=== PATIENT | male | born 1940 | race Caucasian/White ===

== ENCOUNTER 2017-08-05 04:03 | Observation (INO) ==
[2017-08-05] MEDS ORDERED: *HR* Dextrose 50 % in Water (Syg) 50 ML SYRINGE ONE (04:12)
[2017-08-05] MEDS ORDERED: *HR* Dextrose 50 % in Water (Syg) 50 ML SYRINGE IVP ONE (04:13)
--- NOTE | 2017-08-05 04:30 | Emergency Department Note ---
Disposition Clinical Impression: Hypoglycemia Disposition: Admitted As Inpatient Condition: Good Instructions: Diabetic Hypoglycemia (ED) Referrals: NONE,PCP [Primary Care Provider] - Forms: ED Satisfaction Letter General Adult HPI - General Chief complaint: ED Altered Mental Status Stated complaint: hypoglycemia Time Seen by Provider: 08/05/17 04:08 Source: patient Mode of arrival: EMS Limitations: altered mental status Nursing Notes Reviewed: Yes Vital Signs Reviewed: Yes - History of Present Illness HPI Narrative: 76-year-old male with an unknown medical history presents to the ER via EMS due to reports of shortness of breath. EMS states that they were called to the house by family. Upon arrival he was noted to have sonorous respirations. Report was an initial Accu-Chek of 84. He was placed on nasal cannula and brought in for evaluation. Patient is unable to provide any details of his own history. He was noted to be normotensive and in A. fib upon arrival. We did repeat an Accu-Chek here which showed a blood glucose level of 30. The patient was given an amp of D50 with a marked improvement in his mental status afterwards. He states that he is a diabetic but he does not know what medications he takes. He is currently confused as to why he is in a hospital. He voices no complaints at this time. Pt Subjective Complaint: Dyspnea Onset (ago): unknown Radiation: non-radiation Pain Scale: 0 Consistency: now resolved Improves with: nothing Worsens with: nothing Associated symptoms: Denies: chest pain, cough Treatments Prior to Arrival: none - Related Data Allergies Allergy/AdvReac Type Severity Reaction Status Date / Time No Known Allergies Allergy Verified 08/05/17 04:25 All systems ED: reviewed and negative except as stated. Constitutional: Denies: fever Cardiovascular: Denies: chest pain Respiratory: Denies: cough, dyspnea Gastrointestinal: Denies: abdominal pain, nausea, vomiting Past Medical History - Past Medical History Attestation: Yes The following information was validated with the patient. Source: old records reviewed Medical history: Reports: atrial fibrillation, CHF, diabetes - Social History Smoking Status: Former smoker Smokeless Tobacco Status: No Alcohol use: Reports: none Drug use: Reports: none Physical Exam - General Limitations: altered mental status General appearance: alert, obtunded - Head Head exam: atraumatic, normocephalic, normal inspection - Eye Eye exam: Present: normal appearance, EOMI - ENT ENT exam: normal exam - Neck Neck exam: Present: normal inspection, full ROM - Chest Chest inspection: Present: normal inspection, symmetric chest wall rise - Respiratory Respiratory exam: Present: normal lung sounds bilaterally - Cardiovascular Cardiovascular exam: Present: regular rate, irregular rhythm, normal heart sounds - Abdominal Exam Abdominal exam: Present: soft. Absent: distention, rigidity - Extremities Exam Extremities exam: Present: normal inspection, full ROM - Expanded Upper Extremity Exam Shoulder exam: Present: normal inspection, full ROM Arm exam: Present: normal inspection, full ROM Elbow exam: Present: normal inspection, full ROM Forearm/Wrist exam: Present: normal inspection, full ROM Hand exam: Present: normal inspection, full ROM Vascular exam: Normal: radial pulse - Expanded Lower Extremity Exam Hip/Pelvis exam: Present: normal inspection, full ROM Upper leg exam: Present: normal inspection, full ROM Knee exam: Present: normal inspection, full ROM Lower leg exam: Present: normal inspection, full ROM Ankle exam: Present: normal inspection, full ROM, swelling (2+ pitting edema lower extremities bilaterally) Foot/toe exam: Present: normal inspection, full ROM Neurovascular/Tendon exam: Absent: motor deficit, sensory deficit - Neurological Exam Neurological exam: Present: other (Unable to assess initially due to patient compliance. He moves all extremities equally.) - Skin Skin exam: Present: warm, dry, intact, normal color Course Course Narrative: Patient seen and examined. Noted to have a blood glucose level here of 30. Given an amp of D50 with improvement in his mental status. There is no family currently to confirm that he is at his baseline. He is unsure why he is here. He has no complaints. EKG demonstrates no acute findings. We will opt him here and await family. - Reevaluation(s) Reevaluation #1: Patient's family is currently at bedside and reported he is back to his baseline. Patient is unsure whether or not he took his medications as prescribed this evening. I injected the family for him to eat regular meals and to check his blood sugars before giving his diabetic medications. We repeated his glucose here was over 100. He does request his home pain medication prior to discharge. Reevaluation #2: We checked his glucose again prior to discharge and he was noted to be in the 50s. We will check his renal function and attempt to get family to see what medications he is on. Family brought in his medications showing that he does take glipizide. Reevaluation #3: I discussed the recommendations of poison control with the patient and family. They are in agreement with being admitted for observation. - Consultations Consultation #1: I spoke with poison control concerning this patient. He is a questionable glipizide overdose. I discussed his history labs and images today. They do recommend the 24 hour observation period for every 1-2 hour Accu-Cheks. Vital Signs Temperature 97.5 F L 08/05/17 04:04 Pulse Rate 87 08/05/17 04:04 Respiratory Rate 20 08/05/17 04:04 Blood Pressure 104/88 08/05/17 04:04 O2 Sat by Pulse Oximetry 97 08/05/17 04:04 Temperature 97.5 F L 08/05/17 04:04 Pulse Rate 75 08/05/17 07:03 Respiratory Rate 18 08/05/17 07:03 Blood Pressure 107/67 08/05/17 07:03 O2 Sat by Pulse Oximetry 96 08/05/17 05:51 Oxygen Delivery Oxygen Delivery Room Air Medical Decision Making - MDM Narrative Medical decision making narrative: 76-year-old male presents to the ER due to altered mental status and will be breathing. He was noted to be hyperglycemic here at 30 upon presentation. He was given an amp of D50 with marked improvement of his neurologic status. His EKG demonstrates atrial fibrillation which is chronic for him. He was noted to be hypoglycemic again in the 60s after D50. We gave him some juice with sugar still in the 60s. Case was discussed with poison control who recommended admission for 24-hour observation. - Lab Data Lab results reviewed: Yes I reviewed the patient's lab results. Result diagrams: 08/05/17 01:45 Lab Results 08/05/17 08/05/17 Range/Units 01:45 04:30 Sodium 144 (136-145) mEq/L Potassium 4.2 (3.5-4.5) mEq/L Chloride 107 (98-109) mEq/L Carbon Dioxide 25 (19-29) mEq/L BUN 32 H (8-26) mg/dL Creatinine 1.25 (0.72-1.25) mg/dL Est GFR ( Amer) > 60 (> 60) Est GFR (Non-Af Amer) 56 L (> 60) BUN/Creatinine Ratio 26 (6-26) Glucose 24 L* (70-99) mg/dL POC Glucose 119 H (58-89) Calculated Osmolality 301 H (280-300) Calcium 9.8 (8.6-10.8) mg/dL - EKG Data EKG #1 EKG attestation: Yes I reviewed and interpreted this EKG. EKG results narrative: EKG demonstrates atrial fibrillation with a rate of 85 bpm. Normal axis. Normal intervals. Normal R-wave progression. Nonspecific ST-T wave changes in the inferior and lateral leads. No gross ST elevations or depressions. No acute ischemic findings. Gonzales - Gonzales Situation: Demographics, MOA Background: Presenting Complaint, Relevant PMH, Meds, & Allergies Assessment: Vital Signs, Course and respsone to treatment, Exam Concerns, Patient/Family Expectation, Pertinant Lab Results, Outstanding Labs Recommendation: Barrier(s) to disposition, Recommendation based on pending studies, treatments, or consults Gonzales Report Given to: Dr. David Rolon Repor Time: 07:14 Attestation Statement - Attestation Attestation: I examined this patient and my medical decision-making was reviewed with the Resident Physician. I agree with the documented findings, disposition and treatment plan as described except to the extent set forth below. Patient to ED altered mental status. Family called 911 for difficulty breathing. On arrival here he is rolling in the bed. Diaphoretic. Bedside glucose was 30. Plan. The patient's mental status is improved to baseline after D50. His modified on his blood sugar dropped again. We will check renal function. Still waiting medication list from the family.
[2017-08-05] MEDS ORDERED: *HR* OxyCODONE/APAP 5/325 TABLET PO ONE (05:02)
[2017-08-05 05:51] LABS: BUN/Creatinine Ratio 26 (6-26); Blood Urea Nitrogen 32 mg/dL (8-26); Calcium 9.8 mg/dL (8.6-10.8); Carbon Dioxide 25 mEq/L (19-29); Chloride 107 mEq/L (98-109); Osmolality,Calculated 301 (280-300); Potassium 4.2 mEq/L (3.5-4.5); Sodium 144 mEq/L (136-145); eGFR For African Americans > 60 (> 60); eGFR For Non-African Americans 56 (> 60)
[2017-08-05 05:52] LABS: Glucose 24 mg/dL (70-99)
[2017-08-05 07:15] LABS: Basophils # 0.1 K/mcL (0.0-0.2); Basophils % 0.6 %; Eosinophils # 0.1 K/mcL (0.0-0.6); Eosinophils % 1.3 %; Hematocrit 35.5 % (37.5-50.1); Hemoglobin 11.1 g/dL (12.9-16.9); Immature Granulocytes % 0.3 % (0-4); Lymphocytes # 1.1 K/mcL (0.6-4.6); Lymphocytes % 14.7 %; Mean Corpuscular HGB Conc 31.3 g/dL (31.6-35.5); Mean Corpuscular Hemoglobin 29.1 pg (28.0-33.3); Mean Corpuscular Volume 92.9 fL (83.0-100.0); Mean Platelet Volume 12.4 fL (9.4-12.4); Monocytes # 0.7 K/mcL (0.0-1.3); Monocytes % 8.4 %; Neutrophils # 5.8 K/mcL (1.6-8.9); Platelet Count 124 K/mcL (140-400); Red Blood Count 3.82 M/mcL (4.19-5.50); Red Cell Distribution Width 15.8 % (11.5-14.5); Segmented Neutrophils % 74.7 %
[2017-08-05] MEDS ORDERED: Naloxone 0.4 MG/ML INJ IVP PRN (07:41)
[2017-08-05] MEDS ORDERED: Ipratropium/Albuterol Neb 3 ML IH PRN (07:46)
--- NOTE | 2017-08-05 07:54 | Internal Med History&Physical ---
Date of Encounter: 08/05/17 Time of Encounter: 07:49 Assessment and Plan (1) Hypoglycemia Current visit: Yes Status: Acute 2/2 to sulfonylurea and insulin. Discussed for him to request his family to bring medication list as his DM meds needs adjustment to prevent further hypoglycemia. Hold all meds for now. Check A1c. Place on D5 fluid for now to avoid recurrent hypoglycemia. Start diet. Close monitoring. Empiric Low dose ISS for now (2) Afib Current visit: Yes Status: Acute On eliquis, metoprolol BID - dose unknown but will start low dose while inpatient until further confirmation from family can be obtained Qualifiers: Atrial fibrillation type: chronic Qualified Code(s): I48.2 - Chronic atrial fibrillation (3) COPD (chronic obstructive pulmonary disease) Current visit: Yes Status: Acute baseline. uses CPAP qHS prn. Prn albuterol Qualifiers: Qualified Code(s): J44.9 - Chronic obstructive pulmonary disease, unspecified Internal Medicine - H&P: HPI Chief complaint: AMS Admitted From: Home History of present illness: Mr. Jones is a 76 year old male with hx of CABG, DMII, AFib, COPD who presents with acute AMS - found to be hypoglycemic. He lives at home with and son. Uses a cane baseline. At 3 AM, his family noted his breathing/acting funny. Squad was called found low CBG in 80s, in the ED, CBG came down to 30-20, responded to 1 amp of D50 but was refractory with dropping glucose after. His AMS resolved with glucose and as long his CBG is keep up - family concurred. [facility]. He does not have a medication list but mentions of the following - lantus 12 U qHS, metformin 1 pill BID, glyburide 2 pills BID, eliquis, potassium 1 pill qother day, lasix 40mg QD, lisinopril BID ( he is unsure of the dosing of many of his medications), metoprolol BID. Past Med Surg Social Fam HX - Past Medical History Medical history: atrial fibrillation, CHF, diabetes - Past Surgical History Surgical History: non-contributory (Has hx of CABG, appendectomy, tonsillectomy) - Social History Smoking Status: Former smoker Smokeless Tobacco Status: No Alcohol use: none Drug use: none Internal Medicine - H&P: Meds 3 Allergy/AdvReac Type Severity Reaction Status Date / Time No Known Allergies Allergy Verified 08/05/17 04:25 All Systems PM: A 10-system review of systems was performed and is negative for pertinent findings except as documented above in the HPI. Review of systems: ROS 14 point review of systems reviewed as best as possible given presentation. Pertinent positive or negative as per HPI or otherwise reviewed as negative - Constitutional Vitals: Temp Pulse Resp BP Pulse Ox 97.5 F L 78 16 108/81 95 08/05/17 04:04 08/05/17 07:21 08/05/17 07:21 08/05/17 07:21 08/05/17 07:24 Exam: General - AAO x 3 Psych - Appropriate affect/speech. No agitation Eyes - MARTHA. Eye lids intact. No scleral icterus Neuro - No gross peripheral or central neuro deficits with intact CN 2-12 exam Heart - Sinus. RRR. S1 and S2 present. No added HS/murmurs appreciated. No elevated JVD appreciated. Lung - Adequate air entry b/l, No crackles/wheezes appreciated GI - Soft, non-tender. No hepatosplenomegaly/ascites. BS+ - No CVA/suprapubic tenderness or palpable bladder distension Skin - Intact. No rash/petechiae/ecchymosis. Warm extremities. +1 b/l LE edema MSK - Joints with normal ROM. No joint swellings Internal Med - H&P Results - Labs CBC & Chem 7: 08/05/17 01:48 08/05/17 01:45
[2017-08-05] MEDS: D5% in 0.45% NACL 1,000 ML IVC SCH ×2 (07:59→16:42)
[2017-08-05] MEDS ORDERED: Dextrose Gel 15 GM PO PRN ×2 (08:00)
[2017-08-05] MEDS ORDERED: D5% in Water 1,000 ML IVC PRN (08:00)
[2017-08-05] MEDS ORDERED: *HR* Dextrose 50 % in Water (Syg) 50 ML SYRINGE IVP PRN (08:00)
[2017-08-05] MEDS: Furosemide 40 MG TABLET PO SCH (10:04)
[2017-08-05] MEDS: APIXABAN 5 MG TABLET PO SCH ×2 (10:04→21:04)
[2017-08-05] MEDS: *HR* OxyCODONE/APAP 5/325 TABLET PO PRN ×4 (11:01→21:05)
[2017-08-05] MEDS: Insulin LISPRO 300 UNITS/3 ML VIAL SQ SCH ×2 (12:21→16:41)
[2017-08-05] MEDS ORDERED: Insulin LISPRO 300 UNITS/3 ML VIAL SQ SCH (21:00)
[2017-08-06] MEDS: D5% in 0.45% NACL 1,000 ML IVC SCH (01:05)
[2017-08-06] MEDS: *HR* OxyCODONE/APAP 5/325 TABLET PO PRN ×2 (03:42→14:09)
[2017-08-06 04:10] LABS: Basophils % 0.8 %; Immature Granulocytes % 0.2 % (0-4); Red Cell Distribution Width 15.7 % (11.5-14.5)
[2017-08-06 04:12] LABS: Eosinophils # 0.1 K/mcL (0.0-0.6); Eosinophils % 2.6 %; Hematocrit 31.1 % (37.5-50.1); Hemoglobin 9.6 g/dL (12.9-16.9); Immature Platelets 6.9 % (1.1-6.1); Lymphocytes # 1.4 K/mcL (0.6-4.6); Lymphocytes % 26.6 %; Mean Corpuscular HGB Conc 30.9 g/dL (31.6-35.5); Mean Corpuscular Hemoglobin 28.6 pg (28.0-33.3); Mean Corpuscular Volume 92.6 fL (83.0-100.0); Mean Platelet Volume 11.9 fL (9.4-12.4); Monocytes # 0.5 K/mcL (0.0-1.3); Monocytes % 10.5 %; Red Blood Count 3.36 M/mcL (4.19-5.50); Segmented Neutrophils % 59.3 %
[2017-08-06 04:25] LABS: Potassium 4.7 mEq/L (3.5-4.5)
[2017-08-06 04:39] LABS: Platelet Count 99 K/mcL (140-400)
[2017-08-06] MEDS: APIXABAN 5 MG TABLET PO SCH (08:15)
[2017-08-06] MEDS: Insulin LISPRO 300 UNITS/3 ML VIAL SQ SCH ×2 (08:15→12:17)
[2017-08-06] MEDS: Furosemide 40 MG TABLET PO SCH (08:16)
[2017-08-06 12:03] VITALS: BP 117/80
[2017-08-06 13:39] LABS: Hematocrit 32.8 % (37.5-50.1); Hemoglobin 10.5 g/dL (12.9-16.9)
--- NOTE | 2017-08-06 13:45 | Electrocardiograph Report ---
[place] [id number] Test Date: 2017-08-05 Pat Name: Hadley Jones Department: 103 Room: 2NE18 Gender: M Eeg Technician: MARTHA : 1940 Requested By: Sebastien Jasso Order Number: [id number] Reading MD: Gm Richard Measurements Intervals [place] Rate: 85 P: KS: 0 QRS: 91 QRSD: 124 T: 23 QT: 386 QTc: 428 Interpretive Statements ATRIAL FIBRILLATION BORDERLINE RIGHT AXIS DEVIATION [QRS AXIS > 90] MODERATE INTRAVENTRICULAR CONDUCTION DELAY [110+ ms QRS DURATION] ABNORMAL RHYTHM ECG INTERPRETATION BASED ON A DEFAULT AGE OF 40 YEARS Electronically Signed On 08-06-2017 13:43:40 EDT by Gm Richard
--- NOTE | 2017-08-06 14:28 | Discharge Summary ---
<Rajeev Brand - Last Filed: 08/06/17 14:25> Date of Encounter: 08/06/17 Time of Encounter: 09:00 - Discharge Diagnosis (1) Hypoglycemia Priority: Primary () Status: Resolved Comments: Hypoglycemia secondary to poor oral intake and polypharmacy Hemoglobin A1c 5, blood glucose has returned to 144 The patient is taking several oral hypoglycemic agents at home He states that he has lost over 100 pounds in the past few years intentionally Lately he thinks that his appetite has been suppressed, and he has not been eating as much as she stopped taking his medication He will require decreased medication in order to avoid hypoglycemic episodes in the future (2) Afib Priority: Secondary Status: Chronic Qualifiers: Atrial fibrillation type: chronic Qualified Code(s): I48.2 - Chronic atrial fibrillation (3) COPD (chronic obstructive pulmonary disease) Priority: Secondary Status: Chronic Qualifiers: COPD type: chronic bronchitis Chronic bronchitis type: unspecified Qualified Code(s): J42 - Unspecified chronic bronchitis - Discharge Medications Home Medications: Apixaban [Eliquis] 5 mg PO BID 08/05/17 [History] Aspirin [Lo-Dose Aspirin EC] 81 mg PO DAILY 08/05/17 [History] Atorvastatin [Lipitor] 40 mg PO HS 08/05/17 [History] Cholecalciferol (Vitamin D3) [Vitamin D3] 800 unit PO DAILY 08/05/17 [History] Cyanocobalamin (B-12) [Vitamin B12] 1,000 mcg PO DAILY 08/05/17 [History] Furosemide [Lasix] 40 mg PO DAILY 08/05/17 [History] Gabapentin [Neurontin] 1,200 mg PO TID 08/05/17 [History] HYDROcodone/Acet 5/325 mg [[place] 5-325 mg] 1 tab PO TID PRN 08/05/17 [History] Ipratropium/Albuterol Sulfate [Combivent Respimat Inhal [place]] 1 puff IH TID PRN 08/05/17 [History] Lisinopril [Zestril] 15 mg PO DAILY 08/05/17 [History] Meloxicam [Mobic] 15 mg PO DAILY 08/05/17 [History] Metformin HCl [Glucophage] 1,000 mg PO BID 08/05/17 [History] Metoprolol [Lopressor] 25 mg PO BID 08/05/17 [History] Morphine Sulfate [Arymo ER] 15 mg PO QID 08/05/17 [History] Omeprazole [PriLOSEC] 40 mg PO DAILY 08/05/17 [History] Potassium Chloride [Klor-Con 10] 10 meq PO DAILY 08/05/17 [History] Sennosides/Docusate Sodium [Senna-Docusate Sodium Tablet] 1 tab PO BID 08/05/17 [History] Allergies/Adverse Reactions: 3 Allergy/AdvReac Type Severity Reaction Status Date / Time No Known Allergies Allergy Verified 08/05/17 04:25 Date of admission: 08/05/17 07:22 Primary care physician: PCP NONE Discharging clinician: Rajeev Brand Anticipated date of discharge: 08/06/17 - Patient Status Disposition: Home, Self-Care Condition: Good Functional capacity at discharge: uses cane/walker Overall status at discharge: patient is back to baseline - Ambulatory Orders Ambulatory Orders: Basic Metabolic Panel [CHEM] Time Frame: 1 Week, Location: Any - Discharge Instructions Follow Up With: NONE,PCP [Primary Care Provider] - Additional Instructions: Patient follow-up with primary care within 1-2 weeks. Visit lab for BMP within 1 week to check renal function Discontinue use of insulin and glipizide Continue metformin Monitor blood glucose at home, drink orange juice if blood glucose decreases below 60 Return to ER for blood glucose below 60 with altered mental status - Diet and Activity Activity: ambulate only with your walker, increase activity as tolerated Diet: diabetic diet Hospital course: Mr. Jones is a 76 year old male with history of CABG: Diabetes aguilar type II, A. fib, COPD presented to the ED with acute altered mental status found to be hypoglycemic. The patient lives at home with his son, at 3 AM his family noticed that his breathing and acting funny. On arrival to the ED the patient was found to have blood glucose between 20 and 30. Careful analysis of medication was demonstrated Lantus 12 units daily at bedtime, metformin 1 pill twice a day, glyburide 2 pills twice a day. The patient admits that he has been eating less than he had previously, and that he has lost a significant amount of weight in the past couple of years. The patient's hypoglycemia has resolved at this time. Serum creatinine has increased from 1.45 to 1.2. This does not constitute an DREW, however I will recommend laboratory order for the patient have a BMP within 1 week of discharge to follow up with primary care. The patient will be discharged metformin alone, discontinuing other hypoglycemic agents for reevaluation by primary care. - Time Spent with Patient Total time spent providing and/or coordinating discharge services: - Constitutional Vitals: Temp Pulse Resp BP Pulse Ox 98.9 F 84 18 117/80 95 08/06/17 11:36 08/06/17 11:36 08/06/17 11:36 08/06/17 11:36 08/06/17 11:36 - Head Head exam: Present: atraumatic, normocephalic - Eye Eye exam: Present: PERRL, conjuntiva pink, sclera anicteric Pupils: Present: PERRL - Neck Neck exam general surgery: Present: supple, trachea midline. Absent: lymphadenopathy - Respiratory Respiratory exam: Present: CTAB. Absent: accessory muscle use, rales, rhonchi, wheezes - Cardiovascular Cardiovascular exam: Present: RRR, +S1, +S2. Absent: diastolic murmur, gallop, rubs, systolic murmur - GI/Abdominal GI/Abdominal exam: Present: normal bowel sounds, soft, no peritoneal signs. Absent: distended, tenderness - Extremities Exam Extremities exam: Present: warm, radial pulses palpable and symmetrical. Absent : calf tenderness, cyanotic, pedal edema - Neurological Exam Neurological exam: Present: CN II-XII intact, oriented X3, no focal deficits. Absent: pronater drift, facial droop, speech deficit - Skin Skin exam: Present: dry, intact <Mario Shultz - Last Filed: 08/06/17 15:18> Date of Encounter: 08/06/17 - Discharge Diagnosis (1) Diabetes Priority: Primary Status: Chronic Qualifiers: Diabetes mellitus type: type 2 Diabetes mellitus complication status: with hypoglycemia Diabetes mellitus complication detail: without coma Diabetes mellitus long term care pharmacist insulin use: without long term care pharmacist use Qualified Code(s): E11.649 - Type 2 diabetes mellitus with hypoglycemia without coma (2) COPD (chronic obstructive pulmonary disease) Status: Chronic Qualifiers: COPD type: chronic bronchitis Chronic bronchitis type: simple Qualified Code(s): J41.0 - Simple chronic bronchitis (3) Afib Status: Chronic Qualifiers: Atrial fibrillation type: chronic Qualified Code(s): I48.2 - Chronic atrial fibrillation (4) Diabetic neuropathy Priority: Secondary Status: Chronic Qualifiers: Diabetes mellitus type: type 2 Diabetes mellitus complication detail: diabetic polyneuropathy Qualified Code(s): E11.42 - Type 2 diabetes mellitus with diabetic polyneuropathy Date of admission: 08/05/17 07:22 Primary care physician: PCP NONE Hospital course: Mr. Jones is a 76 year old male - Time Spent with Patient Total time spent providing and/or coordinating discharge services: - Constitutional Vitals: Temp Pulse Resp BP Pulse Ox 98.9 F 84 18 117/80 95 08/06/17 11:36 08/06/17 11:36 08/06/17 11:36 08/06/17 11:36 08/06/17 11:36 - Attending Attestation I examined this patient and my medical decision-making was reviewed with the Resident Physician on 08/06/17. I agree with the documented findings, disposition and treatment plan as described except to the extent set forth below. Mr Jones has been in observation due to hypoglycemia. His meds have been held and he is at baseline. Initially his hemoglobin decreased (was fluid positive 2600ml) but a recheck had increased nearly to admission number. He is afebrile and vitals stable. At this time he is ready for discharge home with outpatient follow up. His insulin and glyburide have been stopped. His metformin has been continued. HgbA1C is 5. Exam Alert. Comfortable Mucus membranes dry Heart reg No wheeze Abd soft Plan D/C home today [facility]
[2017-08-06] MEDS ORDERED: FLUARIX QUAD 2017-18 36MOS UP/PF 0.5 ML SYRINGE IM ONE (15:30)
== END 2017-08-06 16:12 | disposition home or self-care (01) ==
LOC: 2NENU 04:03 → EMEROO 04:03 → 2NENU 08:05
PROVIDERS: ADMIT Internal Medicine Hematology & Oncology; ATTEND Internal Medicine

== ENCOUNTER 2017-12-20 14:06 | Inpatient (IN) ==
[2017-12-20 14:49] LABS: Bilirubin,Urine Negative (Negative); Blood,Urine Negative (Negative); Clarity,Urine Clear (Clear); Color,Urine Yellow (Yellow); Glucose,Urine (UA) Normal (Normal); Ketones,Urine Negative (Negative); Leukocyte Esterase,Urine Negative (Negative); Nitrite,Urine Negative (Negative); Protein,Urine Negative (Neg-Trace); Specific Gravity,Urine 1.015 (1.010-1.025); Urobilinogen,Urine Normal (Normal)
[2017-12-20] MEDS ORDERED: Ondansetron 4 MG/2 ML VIAL IVP ONE (14:57)
--- NOTE | 2017-12-20 15:14 | Emergency Department Note ---
Disposition Clinical Impression: Fluid retention, Nausea Cirrhosis of liver Qualifiers: Hepatic cirrhosis type: other cirrhosis Qualified Code(s): K74.69 - Other cirrhosis of liver CHF (congestive heart failure) Qualifiers: Heart failure type: unspecified Heart failure chronicity: unspecified Qualified Code(s): I50.9 - Heart failure, unspecified Disposition: Admitted As Inpatient Condition: Good General Adult HPI - General Chief complaint: ED Nausea/Vomiting/Diarrhea Stated complaint: vomiting Time Seen by Provider: 12/20/17 14:23 Source: patient Limitations: no limitations Nursing Notes Reviewed: Yes Vital Signs Reviewed: Yes - History of Present Illness HPI Narrative: Patient presents for evaluation of vomiting and abdominal pain. Patient states symptoms 2 weeks. Intermittent in nature. Seems to go away but then come back. Not related to specific timing. Patient's abdominal discomfort is lower just below his belly button. The patient does not have any rebound tenderness or guarding. Patient has a history of gallstones but no right upper quadrant pain. Patient has not had chest pain or shortness of breath. Patient has had significant weight gain. The patient's approximately one month ago. Pain Scale: 4 - Related Data Home Medications Medication Instructions Recorded Confirmed Apixaban [Eliquis] 5 mg PO BID 08/05/17 12/20/17 Aspirin [Lo-Dose Aspirin EC] 81 mg PO DAILY 08/05/17 12/20/17 Atorvastatin [Lipitor] 40 mg PO HS 08/05/17 12/20/17 Cholecalciferol (Vitamin D3) 800 unit PO DAILY 08/05/17 12/20/17 [Vitamin D3] Cyanocobalamin (B-12) [Vitamin B12] 1,000 mcg PO DAILY 08/05/17 12/20/17 Gabapentin [Neurontin] 1,200 mg PO TID 08/05/17 12/20/17 HYDROcodone/Acet 5/325 mg [[place] 1 tab PO TID PRN 08/05/17 12/20/17 5-325 mg] Ipratropium/Albuterol Sulfate 1 puff IH TID PRN 08/05/17 12/20/17 [Combivent Respimat Inhal [place]] Lisinopril [Zestril] 15 mg PO DAILY 08/05/17 12/20/17 Meloxicam [Mobic] 15 mg PO DAILY 08/05/17 12/20/17 Metformin HCl [Glucophage] 1,000 mg PO BID 08/05/17 12/20/17 Metoprolol [Lopressor] 25 mg PO BID 08/05/17 12/20/17 Omeprazole [PriLOSEC] 40 mg PO DAILY 08/05/17 12/20/17 Potassium Chloride [Klor-Con 10] 10 meq PO DAILY 08/05/17 12/20/17 Sennosides/Docusate Sodium 1 tab PO BID 08/05/17 12/20/17 [Senna-Docusate Sodium Tablet] Eucerin Creme 1 appl TP DAILY 12/20/17 12/20/17 GuaiFENesin/Dextromethorphan 10 ml PO BID PRN 12/20/17 12/20/17 [Tussin Dm Syrup] Insulin Glargine [Lantus] 10 unit SQ HS 12/20/17 12/20/17 Lidocaine Patch [Lidoderm 5% patch] 3 each TP DAILY 12/20/17 12/20/17 Nitroglycerin [Nitrostat] 0.4 mg SL Q5M PRN 12/20/17 12/20/17 glipiZIDE [Glipizide] 10 mg PO BID 12/20/17 12/20/17 Allergies Allergy/AdvReac Type Severity Reaction Status Date / Time ibuprofen [From Motrin] AdvReac See Verified 12/20/17 19:35 Comments indomethacin [From Indocin] AdvReac See Verified 12/20/17 19:35 Comments naproxen AdvReac See Verified 12/20/17 19:35 Comments Review of Systems: CONSTITUTIONAL: Weight gain No weight loss, fever, chills, weakness or fatigue. HEENT: Eyes: No visual changes. Ears, Nose, Throat: No hearing loss, difficulty talking or unable to swallow. SKIN: No rash or itching. CARDIOVASCULAR: No chest pain, chest pressure or chest discomfort. No palpitations or edema. RESPIRATORY: No shortness of breath, cough or sputum. GASTROINTESTINAL: Nausea vomiting and abdominal pain GENITOURINARY: No burning on urination or hematuria. NEUROLOGICAL: No headache, dizziness, syncope, paralysis, ataxia, numbness or tingling in the extremities. No change in bowel or bladder control. MUSCULOSKELETAL: No muscle pain, back pain, joint pain or stiffness. Past Medical History - Past Medical History Medical history: Reports: atrial fibrillation, CHF, COPD, diabetes Surgical history: Reports: appendectomy, coronary bypass (CABG), pacemaker Psychiatric history: Reports: no psych history - Social History Smoking Status: Former smoker Smokeless Tobacco Status: No Alcohol use: Reports: none Drug use: Reports: none Physical Exam General: Well appearing, nontoxic, no acute distress Head: Normocephalic Atraumatic Eyes: PERRL, EOMI ENT: Airway patent, no stridor Neck: supple, no meningismus Chest: Lungs clear to auscultation bilateral Cardiac: Regular rate and rhythm, no murmurs, rubs or gallops Abdomen: Large abdomen; soft, nontender, nondistended; no guarding, rebound, or tenderness to percussion Musculoskeletal: Calves symmetric, nontender, no palpable cord Skin: No rash, normal skin tone Neuro: Alert and Oriented to person, place, and time; No focal deficit, CN 2-12 symmetric and intact - General Limitations: no limitations General appearance: alert, in no apparent distress Course - Consultations Consultation #1: Discussed with hospitalist. Patient accepted for admission. Vital Signs Temperature 97.2 F L 12/20/17 14:12 Pulse Rate 88 12/20/17 14:12 Respiratory Rate 18 12/20/17 14:12 Blood Pressure 131/73 12/20/17 14:12 O2 Sat by Pulse Oximetry 96 12/20/17 14:12 Temperature 97.2 F L 12/20/17 14:12 Pulse Rate 93 12/20/17 17:27 Respiratory Rate 18 12/20/17 14:12 Blood Pressure 115/73 12/20/17 17:27 O2 Sat by Pulse Oximetry 96 12/20/17 17:27 Oxygen Delivery Oxygen Delivery Room Air Medical Decision Making - Lab Data Result diagrams: 12/20/17 15:14 12/20/17 15:14 Lab Results 12/20/17 12/20/17 12/20/17 Range/Units 14:37 15:14 15:14 WBC 5.0 (4.3-11.1) K/mcL RBC 3.80 L (4.19-5.50) M/mcL Hgb 10.7 L (12.9-16.9) g/dL Hct 34.3 L (37.5-50.1) % MCV 90.3 (83.0-100.0) fL MCH 28.2 (28.0-33.3) pg MCHC 31.2 L (31.6-35.5) g/dL RDW 16.0 H (11.5-14.5) % Plt Count 114 L (140-400) K/mcL MPV 10.9 (9.4-12.4) fL Immature Gran % 0.2 (0-4) % Seg Neutrophils % 67.4 % Lymphocytes % 18.1 % Monocytes % 10.5 % Eosinophils % 2.8 % Basophils % 1.0 % Neutrophils # 3.4 (1.6-8.9) K/mcL Lymphocytes # 0.9 (0.6-4.6) K/mcL Monocytes # 0.5 (0.0-1.3) K/mcL Eosinophils # 0.1 (0.0-0.6) K/mcL Basophils # 0.1 (0.0-0.2) K/mcL PT (9.4-12.1) Seconds INR Sodium 141 (136-145) mEq/L Potassium 4.4 (3.5-5.1) mEq/L Chloride 107 (98-107) mEq/L Carbon Dioxide 27 (23-29) mEq/L BUN 46 H (8-23) mg/dL Creatinine 1.52 H (0.70-1.30) mg/dL Est GFR ( Amer) 54 L (> 60) Est GFR (Non-Af Amer) 45 L (> 60) BUN/Creatinine Ratio 30 H (6-26) Glucose 123 H (70-105) mg/dL Calculated Osmolality 305 H (280-300) Lactic Acid (0.5-2.2) mmol/L Calcium 9.7 (8.6-10.3) mg/dL Total Bilirubin 1.0 (0.3-1.0) mg/dL Direct Bilirubin 0.3 H (0.0-0.2) mg/dL Indirect Bilirubin 0.7 (0.0-1.2) mg/dL AST 15 (13-39) Units/L ALT 7 (7-52) Units/L Alkaline Phosphatase 117 H (34-104) Units/L B-Natriuretic Peptide (Less than 100) pg/mL Serum Total Protein 7.3 (6.4-8.9) g/dL Albumin 3.9 (3.5-5.7) g/dL Globulin 3.4 (2.4-3.5) g/dL Albumin/Globulin Ratio 1.1 (1.1-2.2) Lipase 35 (11-82) Units/L TSH 2.370 (0.340-5.600) mcIU/mL Urine Color Yellow (Yellow) Urine Clarity Clear (Clear) Urine pH 6.0 (5.0-8.0) pH Units Ur Specific [place] 1.015 (1.010-1.025) Urine Protein Negative (Neg-Trace) mg/dL Urine Glucose (UA) Normal (Normal) mg/dL Urine Ketones Negative (Negative) mg/dL Urine Blood Negative (Negative) Urine Nitrite Negative (Negative) Urine Bilirubin Negative (Negative) Urine Urobilinogen Normal (Normal) mg/dL Ur Leukocyte Esterase Negative (Negative) Ur Culture Indicated? NO (NO) 12/20/17 12/20/17 12/20/17 Range/Units 15:14 15:14 15:14 WBC (4.3-11.1) K/mcL RBC (4.19-5.50) M/mcL Hgb (12.9-16.9) g/dL Hct (37.5-50.1) % MCV (83.0-100.0) fL MCH (28.0-33.3) pg MCHC (31.6-35.5) g/dL RDW (11.5-14.5) % Plt Count (140-400) K/mcL MPV (9.4-12.4) fL Immature Gran % (0-4) % Seg Neutrophils % % Lymphocytes % % Monocytes % % Eosinophils % % Basophils % % Neutrophils # (1.6-8.9) K/mcL Lymphocytes # (0.6-4.6) K/mcL Monocytes # (0.0-1.3) K/mcL Eosinophils # (0.0-0.6) K/mcL Basophils # (0.0-0.2) K/mcL PT 17.1 H (9.4-12.1) Seconds INR 1.6 Sodium (136-145) mEq/L Potassium (3.5-5.1) mEq/L Chloride (98-107) mEq/L Carbon Dioxide (23-29) mEq/L BUN (8-23) mg/dL Creatinine (0.70-1.30) mg/dL Est GFR ( Amer) (> 60) Est GFR (Non-Af Amer) (> 60) BUN/Creatinine Ratio (6-26) Glucose (70-105) mg/dL Calculated Osmolality (280-300) Lactic Acid 1.2 (0.5-2.2) mmol/L Calcium (8.6-10.3) mg/dL Total Bilirubin (0.3-1.0) mg/dL Direct Bilirubin (0.0-0.2) mg/dL Indirect Bilirubin (0.0-1.2) mg/dL AST (13-39) Units/L ALT (7-52) Units/L Alkaline Phosphatase (34-104) Units/L B-Natriuretic Peptide 449 H (Less than 100) pg/mL Serum Total Protein (6.4-8.9) g/dL Albumin (3.5-5.7) g/dL Globulin (2.4-3.5) g/dL Albumin/Globulin Ratio (1.1-2.2) Lipase (11-82) Units/L TSH (0.340-5.600) mcIU/mL Urine Color (Yellow) Urine Clarity (Clear) Urine pH (5.0-8.0) pH Units Ur Specific [place] (1.010-1.025) Urine Protein (Neg-Trace) mg/dL Urine Glucose (UA) (Normal) mg/dL Urine Ketones (Negative) mg/dL Urine Blood (Negative) Urine Nitrite (Negative) Urine Bilirubin (Negative) Urine Urobilinogen (Normal) mg/dL Ur Leukocyte Esterase (Negative) Ur Culture Indicated? (NO) Attestation Statement - Attestation Attestation: I examined this patient and my medical decision-making was reviewed with the Resident Physician. I agree with the documented findings, disposition and treatment plan as described.
[2017-12-20 15:23] LABS: Basophils # 0.1 K/mcL (0.0-0.2); Eosinophils # 0.1 K/mcL (0.0-0.6); Eosinophils % 2.8 %; Hematocrit 34.3 % (37.5-50.1); Hemoglobin 10.7 g/dL (12.9-16.9); Immature Granulocytes % 0.2 % (0-4); Lymphocytes # 0.9 K/mcL (0.6-4.6); Lymphocytes % 18.1 %; Mean Corpuscular HGB Conc 31.2 g/dL (31.6-35.5); Mean Corpuscular Hemoglobin 28.2 pg (28.0-33.3); Mean Corpuscular Volume 90.3 fL (83.0-100.0); Mean Platelet Volume 10.9 fL (9.4-12.4); Monocytes # 0.5 K/mcL (0.0-1.3); Monocytes % 10.5 %; Neutrophils # 3.4 K/mcL (1.6-8.9); Platelet Count 114 K/mcL (140-400); Segmented Neutrophils % 67.4 %
[2017-12-20 15:38] LABS: Albumin 3.9 g/dL (3.5-5.7); Bilirubin,Direct 0.3 mg/dL (0.0-0.2); Bilirubin,Indirect 0.7 mg/dL (0.0-1.2); Calcium 9.7 mg/dL (8.6-10.3); Potassium 4.4 mEq/L (3.5-5.1)
[2017-12-20 15:45] LABS: Albumin/Globulin Ratio 1.1 (1.1-2.2); Globulin 3.4 g/dL (2.4-3.5); Total Protein 7.3 g/dL (6.4-8.9)
--- NOTE | 2017-12-20 17:22 | Internal Med History&Physical ---
Date of Encounter: 12/20/17 Time of Encounter: 17:16 Assessment and Plan (1) Abdominal pain Current visit: Yes Status: Acute possible from fluid accumulation. Will treat ascites as below. Will ask GI to see the patient. Imaging could not rule out acute roderick. will order RUQ US and my need HIDA. conservative management for now. Qualifiers: Abdominal location: generalized Qualified Code(s): R10.84 - Generalized abdominal pain (2) Ascites Current visit: Yes Status: Acute Possibly new diagnosis of liver cirrhosis but unsure. Has ascites with some varices on CT A/P. AST/ALT and albumin are normal but Alk phos is mildly elevated. platelts are low at 114 and previously were 99 in July. Will order PT/INR. Will order paracentesis and send fluid for total protein, albumin, cell count and gram stain, cytology. check hepatitis panel. check echo. Will ask GI to see. Lasix 40 mg IV once now. Hold eliquis. Did not take his eliqus dose today. Qualifiers: Ascites type: other type Qualified Code(s): R18.8 - Other ascites (3) Liver cirrhosis Current visit: Yes Status: Acute Qualifiers: Hepatic cirrhosis type: other cirrhosis Qualified Code(s): K74.69 - Other cirrhosis of liver (4) Aneurysm of infrarenal abdominal aorta Current visit: Yes Status: Acute f/u with repeat imaging in 3 years per recs (5) CKD (chronic kidney disease) stage 3, GFR 30-59 ml/min Current visit: Yes Status: Acute stable. will monitor (6) Afib Current visit: No Status: Chronic c/w BB. hold eliquis for procedures Qualifiers: Atrial fibrillation type: chronic Qualified Code(s): I48.2 - Chronic atrial fibrillation (7) Diabetes Current visit: No Status: Chronic SSI. diabetic diet. Accucheks. Qualifiers: Diabetes mellitus type: type 2 Diabetes mellitus complication status: with hypoglycemia Diabetes mellitus complication detail: without coma Diabetes mellitus assisted insulin use: without watermelon inspector use Qualified Code(s): E11.649 - Type 2 diabetes mellitus with hypoglycemia without coma (8) Diabetic neuropathy Current visit: No Status: Chronic c/w gabapentin Qualifiers: Diabetes mellitus type: type 2 Diabetes mellitus complication detail: diabetic polyneuropathy Qualified Code(s): E11.42 - Type 2 diabetes mellitus with diabetic polyneuropathy (9) CAD (coronary artery disease) of artery bypass graft Current visit: Yes Status: Acute resume home meds. hold ASA. Qualifiers: [place] vs. transplanted heart: [place] heart Associated angina: without angina Qualified Code(s): I25.810 - Atherosclerosis of coronary artery bypass graft(s) without angina pectoris (10) COPD (chronic obstructive pulmonary disease) Current visit: No Status: Chronic not in exacerbation. resume home inhalers. Qualifiers: COPD type: chronic bronchitis Chronic bronchitis type: simple Qualified Code(s): J41.0 - Simple chronic bronchitis (11) DVT prophylaxis Current visit: Yes Status: Acute SCDS Internal Medicine - H&P: HPI Chief complaint: abdominal pain Admitted From: Home Plans for Post Hospital Care: Home History of present illness: Mr. Jones is a 77 year old male with hx of CABG, DMII, CKDIII, AFib, COPD presents with abdominal pain. Associated nausea/vomiting. Been ongoing for 2 weeks. Not constant. No aggrevating or alleviating factors. Noticed about 50Ibs weight gain in 1 month. Been having shortness of breath with exertion lately as well. a month ago and been feeling down. No fever/chills/ headache/blurry vision/chest pain/shortness of breath/urinary symptoms/ neurological symptoms. Has not drank alcohol in 20 years. In the ED, he was hemodyanmically stable. Laboratory work up showed BNP 449, creatinine of 1.52 with creatinine being 1.25-1.45 back in July. Alk phos 117 with no previous comparison, direct yazan .3. Rest of work up in terms of labs unremarkable. CT Abd/pelvis with contrast done showed features of cirrhosis with ascites and reactive shotty lymph nodes in the abdomen. THere is small esophageal and gastric varices. Nonobstructing calculi in bilateral kidneys. Contracted gallbaldder with cholelithiasis. Acute cholecystitis could not be excluded. There was a mention of infrarenal AAA measuring 3.3 cm with follow up recommended in 3 years. Past Med Surg Social Fam HX - Past Medical History Medical history: atrial fibrillation, CHF, COPD, diabetes Psychiatric history: no psych history - Past Surgical History Surgical History: appendectomy, coronary bypass (CABG), pacemaker - Social History Smoking Status: Former smoker Smokeless Tobacco Status: No Alcohol use: none Drug use: none Internal Medicine - H&P: Meds Apixaban [Eliquis] 5 mg PO BID 08/05/17 [History] Aspirin [Lo-Dose Aspirin EC] 81 mg PO DAILY 08/05/17 [History] Atorvastatin [Lipitor] 40 mg PO HS 08/05/17 [History] Cholecalciferol (Vitamin D3) [Vitamin D3] 800 unit PO DAILY 08/05/17 [History] Cyanocobalamin (B-12) [Vitamin B12] 1,000 mcg PO DAILY 08/05/17 [History] Gabapentin [Neurontin] 1,200 mg PO TID 08/05/17 [History] HYDROcodone/Acet 5/325 mg [[place] 5-325 mg] 1 tab PO TID PRN 08/05/17 [History] Ipratropium/Albuterol Sulfate [Combivent Respimat Inhal [place]] 1 puff IH TID PRN 08/05/17 [History] Lisinopril [Zestril] 15 mg PO DAILY 08/05/17 [History] Meloxicam [Mobic] 15 mg PO DAILY 08/05/17 [History] Metformin HCl [Glucophage] 1,000 mg PO BID 08/05/17 [History] Metoprolol [Lopressor] 25 mg PO BID 08/05/17 [History] Omeprazole [PriLOSEC] 40 mg PO DAILY 08/05/17 [History] Potassium Chloride [Klor-Con 10] 10 meq PO DAILY 08/05/17 [History] Sennosides/Docusate Sodium [Senna-Docusate Sodium Tablet] 1 tab PO BID 08/05/17 [History] Eucerin Creme 1 appl TP DAILY 12/20/17 [History] GuaiFENesin/Dextromethorphan [Tussin Dm Syrup] 10 ml PO BID PRN 12/20/17 [ History] Insulin Glargine [Lantus] 10 unit SQ HS 12/20/17 [History] Lidocaine Patch [Lidoderm 5% patch] 3 each TP DAILY 12/20/17 [History] Nitroglycerin [Nitrostat] 0.4 mg SL Q5M PRN 12/20/17 [History] glipiZIDE [Glipizide] 10 mg PO BID 12/20/17 [History] 3 Allergy/AdvReac Type Severity Reaction Status Date / Time ibuprofen [From Motrin] AdvReac See Verified 12/20/17 19:35 Comments indomethacin [From Indocin] AdvReac See Verified 12/20/17 19:35 Comments naproxen AdvReac See Verified 12/20/17 19:35 Comments All Systems PM: A 10-system review of systems was performed and is negative for pertinent findings except as documented above in the HPI. Review of systems: All systems reviewed are negative except for what is above. - Constitutional Vitals: Temp Pulse Resp BP Pulse Ox 97.2 F L 97 18 120/85 96 12/20/17 14:12 12/20/17 16:26 12/20/17 14:12 12/20/17 16:26 12/20/17 16:26 Exam: GEN: NAD HEENT: AT, NC, No cyanosis, oral mucosa is moist, No JVD Lymphatics: No lymphadenoapthy Eyes: Extrocular muscles intact, anicteric CVS:RRR. S1, S2, No m/r/g RESP: diminshed. No wheezes ABD: Soft, NT, distended. Dullness at flanks, +BS EXT: generalized anasarca, No rashes, 2+ DP NEURO: Nonfocal, CN II-XII intact, No focal motor or sensory deficits Psych: Cooperative, Not anxious or depressed Internal Med - H&P Results - Labs CBC & Chem 7: 12/20/17 15:14 12/20/17 15:14 Labs: Short CBC 12/20/17 Range/Units 15:14 WBC 5.0 (4.3-11.1) K/mcL Hgb 10.7 L (12.9-16.9) g/dL Hct 34.3 L (37.5-50.1) % Plt Count 114 L (140-400) K/mcL Neutrophils # 3.4 (1.6-8.9) K/mcL BMP 12/20/17 15:14 Sodium 141 Potassium 4.4 Chloride 107 Carbon Dioxide 27 BUN 46 H Creatinine 1.52 H Glucose 123 H Calcium 9.7 Liver Function 12/20/17 Range/Units 15:14 Total Bilirubin 1.0 (0.3-1.0) mg/dL Direct Bilirubin 0.3 H (0.0-0.2) mg/dL AST 15 (13-39) Units/L ALT 7 (7-52) Units/L Alkaline Phosphatase 117 H (34-104) Units/L Albumin 3.9 (3.5-5.7) g/dL Urine 12/20/17 Range/Units 14:37 Urine Color Yellow (Yellow) Urine Clarity Clear (Clear) Urine pH 6.0 (5.0-8.0) pH Units Ur Specific [place] 1.015 (1.010-1.025) Urine Protein Negative (Neg-Trace) mg/dL Urine Glucose (UA) Normal (Normal) mg/dL - Impressions ITS Impressions Abdomen/Pelvis CT 12/20/17 14:58 IMPRESSION: 1. Morphologic features of the liver typical of cirrhosis. Suboptimal enhancement for the exam with no definite mass lesion visualized. 2. Ascites and anasarca presumably related to sequela from cirrhosis. 3. Reactive shotty lymph nodes are noted in the abdomen, common with serosa is. 4. Evidence of relatively small esophageal and gastric varices. 5. Nonobstructing calculi bilateral kidneys. 6. Contracted gallbladder with cholelithiasis. Acute cholecystitis cannot be excluded. 7. Numerous diverticula predominate at the descending and sigmoid colon. I cannot exclude an acute inflammatory process. 8. Small midline ventral hernia upper abdomen contains small volume of ascites. 9. Infrarenal AAA measuring 3.3 cm. Follow-up as per recommendations below. Managing Abdominal Aortic Aneurysms 2.6-2.9 cm: Every 5 years* 3.0-3.4 cm: Every 3 years. 3.5-3.9 cm: Every 1 year. 4.0-4.4 cm: Every 1 year. Recommend vascular consultation. 4.5-5.4 cm: Every 6 months. Recommend vascular consultation. Greater than or equal to 5.5 cm: Referral to vascular surgeon. *For abdominal aortas with maximum diameter of 2.6-2.9 cm meeting criteria for AAA (>50% of proximal normal segment). Reference: J Vasc Surg. 2008;50(4 Suppl):S2-49 D/ / Robin Lester / Robin Lester Interpreting Provider: Robin Lester
[2017-12-20] MEDS ORDERED: Furosemide 40 MG/4 ML VIAL IVP ONE (17:28)
[2017-12-20 17:32] LABS: INR 1.6; Prothrombin Time 17.1 Seconds (9.4-12.1)
[2017-12-20 17:50] LABS: Thyroid Stimulating Hormone 2.37 mcIU/mL (0.340-5.600)
[2017-12-20] MEDS: *HR* HYDROcodone/Acet 5/325 mg TABLET PO PRN (20:43)
[2017-12-20] MEDS: Gabapentin 400 MG CAPSULE PO SCH (20:44)
[2017-12-21] MEDS: *HR* HYDROcodone/Acet 5/325 mg TABLET PO PRN ×2 (04:56→17:03)
[2017-12-21] MEDS ORDERED: Perflutren Lipid Microsphere 1.3 ML in 0.9 % Sodium Chloride 8.7 ML IVP ONE (08:58)
[2017-12-21] MEDS: Cholecalciferol (D-3) 1,000 UNIT TABLET PO SCH (10:07)
[2017-12-21] MEDS: Cyanocobalamin (B-12) 1,000 MCG TABLET PO SCH (10:07)
[2017-12-21] MEDS: Gabapentin 400 MG CAPSULE PO SCH ×3 (10:07→20:28)
[2017-12-21 10:28] LABS: Albumin 3.6 g/dL (3.5-5.7); Albumin/Globulin Ratio 1.1 (1.1-2.2); Calcium 9.5 mg/dL (8.6-10.3); Globulin 3.2 g/dL (2.4-3.5); Potassium 4.4 mEq/L (3.5-5.1); Total Protein 6.8 g/dL (6.4-8.9)
[2017-12-21 10:50] LABS: Hepatitis A Antibody IgM Nonreactive (Nonreactive); Hepatitis B Core IgM Nonreactive (Nonreactive); Hepatitis B Surface Antigen Nonreactive (Nonreactive); Hepatitis C Virus Antibody Nonreactive (Nonreactive)
--- NOTE | 2017-12-21 11:46 | Gastroenterology Consult Note ---
<Rajeev Roberts Jc - Last Filed: 12/21/17 11:43> Date of Encounter: 12/21/17 Time of Encounter: 10:15 - Assessment and plan (1) Liver cirrhosis Status: Acute Assessment and plan: MELD-Na 16, Child-Swain class A, DF 31.4. Recommend 2-4 BMs daily, can use Lactulose if needed. Complete liver workup. Pt will need EGD for variceal surveillance. Lifestyle Changes: 1. Total abstinence from alcohol including social drinking. 2. No smoking 3. Gradual loss of weight 4. Drink at least 3 cups of coffee due to its antioxidant effects in the liver, it reduces risk of HCC and advance fibrosis 5. If needed, use less than 2 g/day of Tylenol (in divided doses). 6. Vaccination for Hep A, B, Pneumococcus if not already received and yearly influenza vaccination by PCP 7. Avoid NSAIDS as can cause kidney damage 8. Avoid benzodiazepines and other sedatives such as anti-histamines, narcotics etc. as can cause encephalopathy or confusion 9. Take a late carbohydrate meal supplement as it reduces glucose production from protein breakdown and thus improves nutrition. 10. In cirrhosis, statins are safe to use and also improve portal hypertension and decrease risk of HCC. Qualifiers: Hepatic cirrhosis type: other cirrhosis Qualified Code(s): K74.69 - Other cirrhosis of liver (2) Ascites Status: Acute Assessment and plan: Secondary to cirrhosis. Paracentesis to be completed today. Send fluid for cell studies and cytology. Infuse Albumin 25%, 8 gm/L if greater than 5 liters removed. Qualifiers: Ascites type: other type Qualified Code(s): R18.8 - Other ascites - Time Spent With Patient Total time spent is greater than 50% in coordination of care (as documented) at patient's floor/unit and/or counseling patient: GI History of Present Illness - Data of Consult Patient: new to practice Consult date: 12/21/17 Requesting Physician: Dominique Narayan MD - Consult Narrative Reason for consult: Cirrhosis History of present illness: Mr. Jones is a 77 year old male with PMHx of Afib, CHF, COPD, DM, CKD III, presented to the ED with abdominal pain, nausea, and vomiting for the past 2 weeks. No aggrevating or alleviating factors. Has not drank alcohol in [address] A/P showed features of cirrhosis with ascites, small esophageal and gastric varices, reactive shotty lymph nodes in the abdomen, contracted gallbaldder with cholelithiasis, and 3.3cm infrarenal AAA. Abdominal US showed cirrhotic contour of liver. Procedures: No record NSAIDs: ASA, Meloxicam Anticoagulation: Eliquis Past Med Surg Social Fam HX - Past Medical History Medical history: atrial fibrillation, CHF, COPD, diabetes Psychiatric history: no psych history - Past Surgical History Surgical History: appendectomy, coronary bypass (CABG), pacemaker - Social History Smoking Status: Former smoker Smokeless Tobacco Status: No Alcohol use: none Drug use: none - Gastrointestinal Gastrointestinal: Present: as per HPI - Constitutional Constitutional: as per HPI - EENT Eyes: as per HPI Ears: Present: as per HPI Nose, mouth and throat: Present: as per HPI - Cardiovascular Cardiovascular ROS: Present: as per HPI - Respiratory Respiratory IM: Present: as per HPI - Genitourinary Genitourinary: Absent: change in color, Urinary frequency - Neurological ROS Neurological GI: Present: as per HPI - Hematologic/Lymphatic Hematologic/Lymphatic pediatric: Present: as per HPI - Musculoskeletal Musculoskeletal ROS GI: Present: as per HPI - Integumentary Integumentary GI: Present: as per HPI - Psychiatric ROS Psychiatric GI: Present: as per HPI - Endocrine Endocrine IM: Present: as per HPI - Constitutional Vitals: Temp Pulse Resp BP Pulse Ox 97.4 F L 93 16 127/95 92 12/21/17 11:03 12/21/17 11:03 12/21/17 11:03 12/21/17 11:03 12/21/17 11:03 General appearance: Present: cooperative, A&O X 3, no acute distress, answers questions appropriately - Head Head exam: Present: atraumatic, normocephalic - Eye Eye exam: Present: normal appearance, sclera anicteric - ENT ENT exam: Present: mucous membranes dry - Neck Neck exam general surgery: Present: normal inspection, trachea midline - Respiratory Respiratory exam: Present: decreased breath sounds, CTAB - Cardiovascular Cardiovascular exam: Present: RRR, +S1, +S2 - GI/Abdominal GI/Abdominal exam: Present: distended, firm, no peritoneal signs. Absent: guarding, tenderness - Rectal Rectal exam: Present: deferred - Extremities Exam Extremities exam: Present: warm - Neurological Exam Neurological exam: Present: no focal deficits - Psychiatric Psychiatric exam: Present: normal affect, normal mood - Skin Skin exam: Present: dry, intact, normal color, warm Results - Labs CBC & Chem 7: 12/20/17 15:14 12/21/17 10:03 Labs: Last Result Calcium 9.5 mg/dL (8.6-10.3) 12/21/17 10:03 Ferritin 55 ng/ml (20-250) 12/21/17 10:03 Entire Visit Hgb 10.7 g/dL (12.9-16.9) L 12/20/17 15:14 Hct 34.3 % (37.5-50.1) L 12/20/17 15:14 PT 17.1 Seconds (9.4-12.1) H 12/20/17 15:14 Ferritin 55 ng/ml (20-250) 12/21/17 10:03 Total Bilirubin 1.0 mg/dL (0.3-1.0) 12/21/17 10:03 AST 14 Units/L (13-39) 12/21/17 10:03 ALT 6 Units/L (7-52) L 12/21/17 10:03 Lipase 35 Units/L (11-82) 12/20/17 15:14 - ABG ABG results: PT/INR, D-dimer PT 17.1 Seconds (9.4-12.1) H 12/20/17 15:14 - Impressions Impressions Echocardiogram 12/21/17 17:14 Impressions: LVEF 60%. Normal LV chamber size, wall thickness and function. Indeterminate diastolic function. Atypical septal motion consistent with post-operative status. Normal right ventricular structure and function. Severely dilated left atrium. Severely dilated right atrium. Moderate tricuspid regurgitation. Mild-moderate pulmonary hypertension. Left Ventricular Wall Motion: Rest Echo Findings All wall segments showed normal motion. Findings: Study Quality * Technically adequate exam. ECG Findings * Atrial fibrillation, bundle branch block. Left Ventricle * LVEF 60%. * Normal LV chamber size, wall thickness and function. * Indeterminate diastolic function. * Atypical septal motion consistent with post-operative status. Right Ventricle * Normal right ventricular structure and function. Left Atrium * Severely dilated left atrium. Right Atrium * Severely dilated right atrium. Interatrial Septum * Interatrial septum not well evaluated. Aortic Valve * Trileaflet aortic valve. * Mildly sclerotic aortic valve leaflets. * No aortic regurgitation. * No aortic stenosis. Mitral Valve * Normal mitral valve structure and function. * No mitral stenosis. * Trace mitral regurgitation. Tricuspid Valve * Normal tricuspid valve structure. * Moderate tricuspid regurgitation. * Mild-moderate pulmonary hypertension. Pulmonic Valve * Normal pulmonic valve structure and function. * No pulmonic regurgitation. Aorta * Normally sized aortic root. Pericardium * The pericardium appears normal. IVC * Normal IVC dimensions and inspiratory collapse. Pulmonary Artery * Normal visualized portions of the main pulmonary artery. Consult Discharge Plan - Plan Referrals: [facility] [Outside] - 01/14/18 1:15 pm Prescriptions: Carvedilol [Coreg] 3.125 mg PO BIDWM #60 tablet Furosemide [Lasix] 40 mg PO BID #60 tablet Gabapentin [Neurontin] 600 mg PO BID #60 capsule Lactulose 20 gm PO QID PRN #300 ml PRN Reason: Constipation <Dago Lane - Last Filed: 01/06/18 14:00> Date of Encounter: 12/21/17 - Time Spent With Patient Total time spent is greater than 50% in coordination of care (as documented) at patient's floor/unit and/or counseling patient: GI History of Present Illness - Data of Consult Requesting Physician: Kofi Morejon MD - Consult Narrative History of present illness: Mr. Jones is a 77 year old male - Constitutional Vitals: Temp Pulse Resp BP Pulse Ox 98.4 F 73 14 144/79 96 01/03/18 05:00 01/03/18 05:00 01/03/18 10:30 01/03/18 05:00 01/03/18 10:30 Results - Labs CBC & Chem 7: 01/03/18 04:33 01/03/18 04:33 Labs: Last Result Calcium 9.1 mg/dL (8.6-10.3) 01/03/18 04:33 Ferritin 55 ng/ml (20-250) 12/21/17 10:03 Peritoneal Appearance CLOUDY (Clear) 12/21/17 10:30 Peritoneal Volume 40.0 mL 12/21/17 10:30 Peritoneal RBC 0.006 M/mcL (0.000-0.002) H 12/21/17 10:30 Periton Tot Nuc Cells 271 TNC/mcL (0-300) 12/21/17 10:30 Periton Band Neuts TNP 12/21/17 10:30 Periton Lymphocytes % 53.0 % 12/21/17 10:30 Periton Monocytes % 3.0 % 12/21/17 10:30 Periton Other Cells % 18.0 % 12/21/17 10:30 Peritoneal Tot Protein 3.5 g/dL (No Ref Range) 12/21/17 10:30 Peritoneal Albumin 2.0 g/dL (No Ref Range) 12/21/17 10:30 Peritoneal LDH 68 Units/L (No Ref Range) 12/21/17 10:30 Entire Visit Hgb 8.4 g/dL (12.9-16.9) L 01/03/18 04:33 Hct 26.2 % (37.5-50.1) L 01/03/18 04:33 PT 17.2 Seconds (9.4-12.1) H 12/24/17 15:00 Ferritin 55 ng/ml (20-250) 12/21/17 10:03 Total Bilirubin 0.9 mg/dL (0.3-1.0) 01/02/18 05:04 AST 23 Units/L (13-39) 01/02/18 05:04 ALT 17 Units/L (7-52) 01/02/18 05:04 Ammonia 46 mcmol/L (16-53) 12/31/17 08:00 Dpkve-0-Lzexffaoxnt 180 mg/dL (90-200) 12/21/17 10:03 Ceruloplasmin 29 mg/dL (17-54) 12/21/17 10:03 Lipase 35 Units/L (11-82) 12/20/17 15:14 F-Actin IgG Antibody 51 Units (0-19) H 12/21/17 10:03 - ABG ABG results: PT/INR, D-dimer PT 17.2 Seconds (9.4-12.1) H 12/24/17 15:00 - Attending Attestation Mr. Milan is a 77-year-old white male who has decompensated cirrhosis with ascites and portal hypertension and and the presence of esophagogastric varices based on his CT exam his meld score is 16. He has not drank in about 20 years. Very detailed discussion about the management of cirrhosis as well as what to avoid. With her getting an upper endoscopy done to look at the varices and band them if necessary. He will need close periodic follow up with us at the office and if conveyed this to him further recommendations after the upper endoscopy I have personally performed a face to face evaluation on this patient. I have reviewed and agree with the care plan. History and Exam by me shows:
[2017-12-21] MEDS ORDERED: D5% in Water 1,000 ML IVC PRN (13:42)
[2017-12-21] MEDS ORDERED: Dextrose Gel 15 GM/37.5 ML TUBE PO PRN ×2 (13:42)
[2017-12-21] MEDS ORDERED: *HR* Dextrose 50 % in Water (Syg) 50 ML SYRINGE IVP PRN (13:42)
[2017-12-21] MEDS: Furosemide 40 MG TABLET PO SCH (14:38)
--- NOTE | 2017-12-21 14:41 | IR Procedure Note ---
Date of procedure: 12/21/17 Consent Obtained: Written consent Timeout: Correct patient and procedure verified, Correct site verified, Time out performed, Skin prep completed Indications: ascites Procedure Performed: paracentesis Was there an assistant professor of art present: Yes Clinical Research Scientist: Jorge A Modi Site/Technique: abdomen Results/Findings: large ascites Estimated blood loss (cc): 0 Complications: None; Tolerated procedure well Specimen: none
--- NOTE | 2017-12-21 14:55 | Internal Med Progress Note ---
Date of Encounter: 12/21/17 Time of Encounter: 09:35 - Assessment and plan (1) Abdominal pain Current Visit: Yes Status: Acute Assessment and plan: Likely secondary to ascites. Plan as below. Qualifiers: Abdominal location: generalized Qualified Code(s): R10.84 - Generalized abdominal pain (2) Ascites Current Visit: Yes Status: Acute Assessment and plan: CT abdomen and abdominal ultrasound show cirrhosis, large ascites, mildly dilated common bile duct at 8 mm. Uncertain etiology. Follow-up viral hepatitis profile. Underwent ultrasound-guided paracentesis by IR, drained at least 6300 mL of peritoneal fluid. Follow-up fluid analysis and pathology. We will give her dose of 50 g IV albumin due to large volume paracentesis. Start oral Lasix, fluid restriction, when necessary lactulose. GI consult appreciated. Echocardiogram shows preserved ejection fraction, indeterminate diastolic function, severe biatrial dilation, moderate tricuspid regurgitation, mild to moderate pulmonary hypertension. Qualifiers: Ascites type: other type Qualified Code(s): R18.8 - Other ascites (3) CAD (coronary artery disease) of artery bypass graft Current Visit: Yes Status: Chronic Assessment and plan: Continue aspirin, beta francisca, statin. Qualifiers: [place] vs. transplanted heart: [place] heart Associated angina: without angina Qualified Code(s): I25.810 - Atherosclerosis of coronary artery bypass graft(s) without angina pectoris (4) CKD (chronic kidney disease) stage 3, GFR 30-59 ml/min Current Visit: Yes Status: Chronic Assessment and plan: Serum creatinine noted to be around baseline, 1.52. Continue to monitor closely due to Lasix. (5) Liver cirrhosis Current Visit: Yes Status: Chronic Qualifiers: Hepatic cirrhosis type: other cirrhosis Qualified Code(s): K74.69 - Other cirrhosis of liver (6) Afib Current Visit: Yes Status: Chronic Assessment and plan: Currently rate controlled. Continue beta francisca and long-term anticoagulation with Eliquis. Qualifiers: Atrial fibrillation type: chronic Qualified Code(s): I48.2 - Chronic atrial fibrillation (7) COPD (chronic obstructive pulmonary disease) Current Visit: Yes Status: Chronic Qualifiers: COPD type: chronic bronchitis Chronic bronchitis type: simple Qualified Code(s): J41.0 - Simple chronic bronchitis (8) Diabetes Current Visit: Yes Status: Chronic Assessment and plan: Continue Accu-Chek blood glucose monitoring with sliding scale insulin. Diabetic diet. Blood sugars well controlled. Qualifiers: Diabetes mellitus type: type 2 Diabetes mellitus complication status: with kidney complications Diabetes mellitus complication detail: with chronic kidney disease Diabetes mellitus fpc insulin use: without fpc use Chronic kidney disease stage: stage 3 (moderate) Qualified Code(s): E11.22 - Type 2 diabetes mellitus with diabetic chronic kidney disease; N18.3 - Chronic kidney disease, stage 3 (moderate); N18.3 - Chronic kidney disease, stage 3 (moderate) - Subjective Interval history: Reports worsening abdominal distention and diffuse leg swelling for the last few weeks to months. Intermittent abdominal pain. Denies chest pain, noted to have some exertional dyspnea. No nausea, vomiting, diarrhea. Unaware of history of liver disease. - Constitutional Vitals: Temp Pulse Resp BP Pulse Ox 97.4 F L 93 16 127/95 92 12/21/17 11:03 12/21/17 11:03 12/21/17 11:03 12/21/17 11:03 12/21/17 11:03 General appearance: Present: A&O X 3, obese, answers questions appropriately - Respiratory Respiratory exam: Present: CTAB. Absent: accessory muscle use, rales, rhonchi, wheezes - Cardiovascular Cardiovascular exam: Present: irregular rhythm, +S1, +S2. Absent: diastolic murmur, gallop, rubs, systolic murmur - GI/Abdominal GI/Abdominal exam: Present: distended (Firm, distended, ascites and fluid thrill positive), normal bowel sounds, soft, no peritoneal signs. Absent: tenderness - Extremities Exam Extremities exam: Present: full ROM, pedal edema (2+ tense pedal edema up to inguinal area, extending into abdomen), warm, radial pulses palpable and symmetrical. Absent: calf tenderness, cyanotic - Neurological Exam Neurological exam: Present: CN II-XII intact, oriented X3, no focal deficits. Absent: pronater drift, facial droop, speech deficit Internal Medicine: Result - Labs CBC & Chem 7: 12/20/17 15:14 12/21/17 10:03 Labs: BMP 12/21/17 10:03 Sodium 141 Potassium 4.4 Chloride 106 Carbon Dioxide 29 BUN 47 H Creatinine 1.85 H Glucose 111 H Calcium 9.5 Liver Function 12/21/17 Range/Units 10:03 Total Bilirubin 1.0 (0.3-1.0) mg/dL AST 14 (13-39) Units/L ALT 6 L (7-52) Units/L Alkaline Phosphatase 109 H (34-104) Units/L Albumin 3.6 (3.5-5.7) g/dL - ABG Interpretation ABG results: PT/INR, D-dimer PT 17.1 Seconds (9.4-12.1) H 12/20/17 15:14 - Impressions Impressions Paracentesis Ultrasound 12/21/17 08:00 IMPRESSION: Successful ultrasound guided paracentesis. D/ / 12/21/2017 14:21:22 Ashley Jeff MD / vivian Interpreting Provider: Ashley Jeff MD Echocardiogram 12/21/17 17:14 Impressions: LVEF 60%. Normal LV chamber size, wall thickness and function. Indeterminate diastolic function. Atypical septal motion consistent with post-operative status. Normal right ventricular structure and function. Severely dilated left atrium. Severely dilated right atrium. Moderate tricuspid regurgitation. Mild-moderate pulmonary hypertension. Left Ventricular Wall Motion: Rest Echo Findings All wall segments showed normal motion. Findings: Study Quality * Technically adequate exam. ECG Findings * Atrial fibrillation, bundle branch block. Left Ventricle * LVEF 60%. * Normal LV chamber size, wall thickness and function. * Indeterminate diastolic function. * Atypical septal motion consistent with post-operative status. Right Ventricle * Normal right ventricular structure and function. Left Atrium * Severely dilated left atrium. Right Atrium * Severely dilated right atrium. Interatrial Septum * Interatrial septum not well evaluated. Aortic Valve * Trileaflet aortic valve. * Mildly sclerotic aortic valve leaflets. * No aortic regurgitation. * No aortic stenosis. Mitral Valve * Normal mitral valve structure and function. * No mitral stenosis. * Trace mitral regurgitation. Tricuspid Valve * Normal tricuspid valve structure. * Moderate tricuspid regurgitation. * Mild-moderate pulmonary hypertension. Pulmonic Valve * Normal pulmonic valve structure and function. * No pulmonic regurgitation. Aorta * Normally sized aortic root. Pericardium * The pericardium appears normal. IVC * Normal IVC dimensions and inspiratory collapse. Pulmonary Artery * Normal visualized portions of the main pulmonary artery. Consult Discharge Plan - Plan Referrals: [facility] [Outside]
[2017-12-21 14:59] LABS: RBC,Peritoneal Fluid 0.006 M/mcL
[2017-12-21 15:12] LABS: Appearance of Peritoneal Fl CLOUDY (Clear)
[2017-12-21 15:27] LABS: Total Protein,Peritoneal Fluid 3.5 g/dL (No Ref Range)
[2017-12-21] MEDS: Albumin 25% 25gram/100mL 25 GM/100 ML IV.SOLN IVC SCH ×2 (15:42→17:26)
[2017-12-21] MEDS: Insulin LISPRO 300 UNITS/3 ML VIAL SQ SCH ×2 (16:37→20:29)
[2017-12-21] MEDS: *HR* OxyCODONE Immed Rel 5 MG TABLET PO PRN (20:27)
[2017-12-21] MEDS: Apixaban 5 MG TABLET PO SCH (20:28)
[2017-12-21] MEDS: Lactulose Oral Soln 20 GM/30 ML UDC PO SCH (20:29)
[2017-12-22 02:21] LABS: Basophils % 0.8 %; Eosinophils # 0.2 K/mcL (0.0-0.6); Eosinophils % 2.9 %; Hematocrit 31.9 % (37.5-50.1); Hemoglobin 9.6 g/dL (12.9-16.9); Immature Granulocytes % 0.2 % (0-4); Lymphocytes % 19.8 %; Mean Corpuscular HGB Conc 30.1 g/dL (31.6-35.5); Mean Corpuscular Hemoglobin 27.6 pg (28.0-33.3); Mean Corpuscular Volume 91.7 fL (83.0-100.0); Monocytes # 0.7 K/mcL (0.0-1.3); Monocytes % 13.9 %; Neutrophils # 3.2 K/mcL (1.6-8.9); Platelet Count 103 K/mcL (140-400); Red Blood Count 3.48 M/mcL (4.19-5.50); Red Cell Distribution Width 15.9 % (11.5-14.5); Segmented Neutrophils % 62.4 %
[2017-12-22 02:37] LABS: Potassium 4.9 mEq/L (3.5-5.1)
[2017-12-22 02:51] LABS: Magnesium 1.8 mg/dL (1.6-2.6)
[2017-12-22] MEDS: Insulin LISPRO 300 UNITS/3 ML VIAL SQ SCH ×4 (07:49→20:12)
[2017-12-22] MEDS: Gabapentin 400 MG CAPSULE PO SCH ×3 (09:20→20:14)
[2017-12-22] MEDS: Cholecalciferol (D-3) 1,000 UNIT TABLET PO SCH (09:20)
[2017-12-22] MEDS: Furosemide 40 MG TABLET PO SCH (09:20)
[2017-12-22] MEDS: Cyanocobalamin (B-12) 1,000 MCG TABLET PO SCH (09:20)
[2017-12-22] MEDS: Aspirin Enteric Coated 81 MG Tablet PO SCH (09:20)
[2017-12-22] MEDS: Lactulose Oral Soln 20 GM/30 ML UDC PO SCH ×2 (09:21→20:14)
[2017-12-22] MEDS: Apixaban 5 MG TABLET PO SCH ×2 (09:21→20:14)
--- NOTE | 2017-12-22 10:35 | Internal Med Progress Note ---
Date of Encounter: 12/22/17 Time of Encounter: 09:45 - Assessment and plan (1) Abdominal pain Current Visit: Yes Status: Acute Assessment and plan: Likely secondary to ascites. Improving. Plan as below. Qualifiers: Abdominal location: generalized Qualified Code(s): R10.84 - Generalized abdominal pain (2) Ascites Current Visit: Yes Status: Acute Assessment and plan: CT abdomen and abdominal ultrasound show cirrhosis, large ascites, mildly dilated common bile duct at 8 mm. Uncertain etiology. Viral hepatitis profile negative. Underwent ultrasound-guided paracentesis by IR, drained at least 6300 mL of peritoneal fluid. SAAG above 1.2, suggestive of portal HTN. Gram stain and fluid preliminary culture negative. Follow-up pathology. Started oral Lasix, fluid restriction, when necessary lactulose. GI consult appreciated, possible EGD on 12/24. Echocardiogram shows preserved ejection fraction, indeterminate diastolic function, severe biatrial dilation, moderate tricuspid regurgitation, mild to moderate pulmonary hypertension. Qualifiers: Ascites type: other type Qualified Code(s): R18.8 - Other ascites (3) CAD (coronary artery disease) of artery bypass graft Current Visit: Yes Status: Chronic Qualifiers: [place] vs. transplanted heart: [place] heart Associated angina: without angina Qualified Code(s): I25.810 - Atherosclerosis of coronary artery bypass graft(s) without angina pectoris (4) CKD (chronic kidney disease) stage 3, GFR 30-59 ml/min Current Visit: Yes Status: Chronic Assessment and plan: Serum creatinine noted to be worsening, 2 today (baseline 1.2-1.4). 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 (5) Liver cirrhosis Current Visit: Yes Status: Chronic Qualifiers: Hepatic cirrhosis type: other cirrhosis Qualified Code(s): K74.69 - Other cirrhosis of liver (6) Afib Current Visit: Yes Status: Chronic Assessment and plan: Currently rate controlled. Hold beta francisca de to hypotension and bradycardia and continue long-term anticoagulation with Eliquis. Increased risk for bleeding due to cirrhosis and thrombocytopenia; Qualifiers: Atrial fibrillation type: chronic Qualified Code(s): I48.2 - Chronic atrial fibrillation (7) COPD (chronic obstructive pulmonary disease) Current Visit: Yes Status: Chronic Qualifiers: COPD type: chronic bronchitis Chronic bronchitis type: simple Qualified Code(s): J41.0 - Simple chronic bronchitis (8) Diabetes Current Visit: Yes Status: Chronic Assessment and plan: Continue Accu-Chek blood glucose monitoring with sliding scale insulin. Diabetic diet. Blood sugars well controlled. Qualifiers: Diabetes mellitus type: type 2 Diabetes mellitus complication status: with kidney complications Diabetes mellitus complication detail: with chronic kidney disease Diabetes mellitus senior care insulin use: without superintendent marine oil terminal use Chronic kidney disease stage: stage 3 (moderate) Qualified Code(s): E11.22 - Type 2 diabetes mellitus with diabetic chronic kidney disease; N18.3 - Chronic kidney disease, stage 3 (moderate); N18.3 - Chronic kidney disease, stage 3 (moderate) - Subjective Interval history: Feels better today; improved abdominal pain and distension; continues to have leg swelling; no chest pain, dyspnea, palpitations, fever/chills; - Constitutional Vitals: Temp Pulse Resp BP Pulse Ox 98.5 F 51 18 95/58 95 12/22/17 07:14 12/22/17 07:14 12/22/17 07:14 12/22/17 07:14 12/22/17 07:14 General appearance: Present: A&O X 3, obese, answers questions appropriately - Respiratory Respiratory exam: Present: CTAB. Absent: accessory muscle use, rales, rhonchi, wheezes - Cardiovascular Cardiovascular exam: Present: irregular rhythm, +S1, +S2. Absent: diastolic murmur, gallop, rubs, systolic murmur - GI/Abdominal GI/Abdominal exam: Present: distended (improving), normal bowel sounds, soft ( subcutaneous edema), no peritoneal signs. Absent: tenderness - Extremities Exam Extremities exam: Present: full ROM, pedal edema (2+ tense pitting pedal edema) , warm, radial pulses palpable and symmetrical. Absent: calf tenderness, cyanotic - Neurological Exam Neurological exam: Present: CN II-XII intact, oriented X3, no focal deficits. Absent: pronater drift, facial droop, speech deficit Internal Medicine: Result - Labs CBC & Chem 7: 12/22/17 02:12 12/22/17 02:12 Labs: Short CBC 12/22/17 Range/Units 02:12 WBC 5.1 (4.3-11.1) K/mcL Hgb 9.6 L (12.9-16.9) g/dL Hct 31.9 L (37.5-50.1) % Plt Count 103 L (140-400) K/mcL Neutrophils # 3.2 (1.6-8.9) K/mcL BMP 12/22/17 02:12 Sodium 140 Potassium 4.9 Chloride 106 Carbon Dioxide 28 BUN 47 H Creatinine 2.00 H Glucose 136 H Calcium 9.0 - ABG Interpretation ABG results: PT/INR, D-dimer PT 17.1 Seconds (9.4-12.1) H 12/20/17 15:14 - Impressions Impressions Paracentesis Ultrasound 12/21/17 08:00 IMPRESSION: Successful ultrasound guided paracentesis. D/ / 12/21/2017 14:21:22 Ashley Jeff MD / vivian Interpreting Provider: Ashley Jeff MD Echocardiogram 12/21/17 17:14 Impressions: LVEF 60%. Normal LV chamber size, wall thickness and function. Indeterminate diastolic function. Atypical septal motion consistent with post-operative status. Normal right ventricular structure and function. Severely dilated left atrium. Severely dilated right atrium. Moderate tricuspid regurgitation. Mild-moderate pulmonary hypertension. Left Ventricular Wall Motion: Rest Echo Findings All wall segments showed normal motion. Findings: Study Quality * Technically adequate exam. ECG Findings * Atrial fibrillation, bundle branch block. Left Ventricle * LVEF 60%. * Normal LV chamber size, wall thickness and function. * Indeterminate diastolic function. * Atypical septal motion consistent with post-operative status. Right Ventricle * Normal right ventricular structure and function. Left Atrium * Severely dilated left atrium. Right Atrium * Severely dilated right atrium. Interatrial Septum * Interatrial septum not well evaluated. Aortic Valve * Trileaflet aortic valve. * Mildly sclerotic aortic valve leaflets. * No aortic regurgitation. * No aortic stenosis. Mitral Valve * Normal mitral valve structure and function. * No mitral stenosis. * Trace mitral regurgitation. Tricuspid Valve * Normal tricuspid valve structure. * Moderate tricuspid regurgitation. * Mild-moderate pulmonary hypertension. Pulmonic Valve * Normal pulmonic valve structure and function. * No pulmonic regurgitation. Aorta * Normally sized aortic root. Pericardium * The pericardium appears normal. IVC * Normal IVC dimensions and inspiratory collapse. Pulmonary Artery * Normal visualized portions of the main pulmonary artery. Consult Discharge Plan - Plan Referrals: [facility] [Outside]
[2017-12-22] MEDS: *HR* OxyCODONE Immed Rel 5 MG TABLET PO PRN ×2 (10:59→22:18)
[2017-12-22] MEDS: *HR* HYDROcodone/Acet 5/325 mg TABLET PO PRN (20:25)
[2017-12-23] MEDS: *HR* OxyCODONE Immed Rel 5 MG TABLET PO PRN ×2 (04:23→22:25)
[2017-12-23 05:55] LABS: Calcium 8.7 mg/dL (8.6-10.3); Magnesium 1.8 mg/dL (1.6-2.6); Potassium 5.1 mEq/L (3.5-5.1)
[2017-12-23] MEDS: Gabapentin 400 MG CAPSULE PO SCH ×3 (08:19→20:08)
[2017-12-23] MEDS: Furosemide 40 MG TABLET PO SCH (08:19)
[2017-12-23] MEDS: Apixaban 5 MG TABLET PO SCH (08:19)
[2017-12-23] MEDS: Aspirin Enteric Coated 81 MG Tablet PO SCH (08:19)
[2017-12-23] MEDS: Cyanocobalamin (B-12) 1,000 MCG TABLET PO SCH (08:19)
[2017-12-23] MEDS: Insulin LISPRO 300 UNITS/3 ML VIAL SQ SCH ×4 (08:20→20:02)
[2017-12-23] MEDS: Lactulose Oral Soln 20 GM/30 ML UDC PO SCH ×2 (08:20→20:08)
[2017-12-23] MEDS: Cholecalciferol (D-3) 1,000 UNIT TABLET PO SCH (08:20)
--- NOTE | 2017-12-23 12:10 | Internal Med Progress Note ---
Date of Encounter: 12/23/17 Time of Encounter: 09:45 - Assessment and plan (1) Abdominal pain Current Visit: Yes Status: Acute Assessment and plan: Likely secondary to ascites. Improving. Plan as below. Qualifiers: Abdominal location: generalized Qualified Code(s): R10.84 - Generalized abdominal pain (2) Ascites Current Visit: Yes Status: Acute Assessment and plan: CT abdomen and abdominal ultrasound show cirrhosis, large ascites, mildly dilated common bile duct at 8 mm. Uncertain etiology. Viral hepatitis profile negative. Underwent ultrasound-guided paracentesis by IR, drained at least 6300 mL of peritoneal fluid. SAAG above 1.2, suggestive of portal HTN. Gram stain and fluid preliminary culture negative. Follow-up pathology. Started oral Lasix, fluid restriction, when necessary lactulose. Noted to be noncompliant with fluid restriction, reinforced wait staff and patient; GI consult appreciated, possible EGD on 12/24. Possible reaccumulation of ascitic fluid. May need repeat paracentesis; Qualifiers: Ascites type: other type Qualified Code(s): R18.8 - Other ascites (3) CAD (coronary artery disease) of artery bypass graft Current Visit: Yes Status: Chronic Qualifiers: [place] vs. transplanted heart: [place] heart Associated angina: without angina Qualified Code(s): I25.810 - Atherosclerosis of coronary artery bypass graft(s) without angina pectoris (4) CKD (chronic kidney disease) stage 3, GFR 30-59 ml/min Current Visit: Yes Status: Chronic Assessment and plan: Serum creatinine noted to be worsening, 2.07 today (baseline 1.2-1.4). Likely hepatorenal syndrome, use of diuretics, large volume paracentesis; did receive 50g Albumin after paracentesis; held ACEI; Continue to monitor closely due to use of Lasix. Will consult Nephrology for assistance with diuretics and volume overload as he is noted to be having reaccumulation of ascitic fluid; (5) Liver cirrhosis Current Visit: Yes Status: Chronic Assessment and plan: GI on board; needs outpatient f/up; will d/w them regarding EGD in am, to r/o esophageal varices; Qualifiers: Hepatic cirrhosis type: other cirrhosis Qualified Code(s): K74.69 - Other cirrhosis of liver (6) Afib Current Visit: Yes Status: Chronic Qualifiers: Atrial fibrillation type: chronic Qualified Code(s): I48.2 - Chronic atrial fibrillation (7) COPD (chronic obstructive pulmonary disease) Current Visit: Yes Status: Chronic Qualifiers: COPD type: chronic bronchitis Chronic bronchitis type: simple Qualified Code(s): J41.0 - Simple chronic bronchitis (8) Diabetes Current Visit: Yes Status: Chronic Assessment and plan: Continue Accu-Chek blood glucose monitoring with sliding scale insulin. Diabetic diet. Blood sugars well controlled. Qualifiers: Diabetes mellitus type: type 2 Diabetes mellitus complication status: with kidney complications Diabetes mellitus complication detail: with chronic kidney disease Diabetes mellitus care home insulin use: without sour bleaching pleater use Chronic kidney disease stage: stage 3 (moderate) Qualified Code(s): E11.22 - Type 2 diabetes mellitus with diabetic chronic kidney disease; N18.3 - Chronic kidney disease, stage 3 (moderate); N18.3 - Chronic kidney disease, stage 3 (moderate) - Subjective Interval history: Feels better today; improved abdominal pain and weakness and nausea but worsening distension; continues to have leg swelling; no chest pain, dyspnea, palpitations, fever/chills; He was educated about fluid restriction; - Constitutional Vitals: Temp Pulse Resp BP Pulse Ox 97.5 F L 99 14 102/66 95 12/23/17 06:49 12/23/17 06:49 12/23/17 06:49 12/23/17 06:49 12/23/17 06:49 General appearance: Present: A&O X 3, obese, answers questions appropriately - Respiratory Respiratory exam: Present: CTAB. Absent: accessory muscle use, rales, rhonchi, wheezes - Cardiovascular Cardiovascular exam: Present: irregular rhythm, +S1, +S2. Absent: diastolic murmur, gallop, rubs, systolic murmur - GI/Abdominal GI/Abdominal exam: Present: distended (ascites+), normal bowel sounds, soft, no peritoneal signs. Absent: tenderness - Extremities Exam Extremities exam: Present: pedal edema, warm, radial pulses palpable and symmetrical. Absent: calf tenderness, cyanotic Internal Medicine: Result - Labs CBC & Chem 7: 12/22/17 02:12 12/23/17 05:04 Labs: BMP 12/23/17 05:04 Sodium 137 Potassium 5.1 Chloride 105 Carbon Dioxide 26 BUN 52 H Creatinine 2.07 H Glucose 195 H Calcium 8.7 - ABG Interpretation ABG results: PT/INR, D-dimer PT 17.1 Seconds (9.4-12.1) H 12/20/17 15:14 Consult Discharge Plan - Plan Referrals: [facility] [Outside]
[2017-12-23] MEDS: *HR* HYDROcodone/Acet 5/325 mg TABLET PO PRN (16:19)
[2017-12-24] MEDS: *HR* HYDROcodone/Acet 5/325 mg TABLET PO PRN ×2 (04:33→08:51)
[2017-12-24 05:24] LABS: Potassium 5.4 mEq/L (3.5-5.1)
[2017-12-24 05:45] LABS: Basophils % 0.6 %; Eosinophils # 0.1 K/mcL (0.0-0.6); Eosinophils % 2.2 %; Hematocrit 30.2 % (37.5-50.1); Hemoglobin 9.6 g/dL (12.9-16.9); Immature Granulocytes % 0.2 % (0-4); Lymphocytes # 0.9 K/mcL (0.6-4.6); Lymphocytes % 17.7 %; Mean Corpuscular HGB Conc 31.8 g/dL (31.6-35.5); Mean Corpuscular Hemoglobin 28.3 pg (28.0-33.3); Mean Corpuscular Volume 89.1 fL (83.0-100.0); Mean Platelet Volume 12.6 fL (9.4-12.4); Monocytes # 0.6 K/mcL (0.0-1.3); Monocytes % 12.1 %; Neutrophils # 3.4 K/mcL (1.6-8.9); Platelet Count 111 K/mcL (140-400); Red Blood Count 3.39 M/mcL (4.19-5.50); Segmented Neutrophils % 67.2 %
[2017-12-24] MEDS: Cyanocobalamin (B-12) 1,000 MCG TABLET PO SCH (08:51)
[2017-12-24] MEDS: Lactulose Oral Soln 20 GM/30 ML UDC PO SCH ×2 (08:51→22:08)
[2017-12-24] MEDS: Cholecalciferol (D-3) 1,000 UNIT TABLET PO SCH (08:51)
[2017-12-24] MEDS: Aspirin Enteric Coated 81 MG Tablet PO SCH (08:51)
[2017-12-24] MEDS: Gabapentin 400 MG CAPSULE PO SCH ×2 (08:51→22:07)
[2017-12-24] MEDS: Furosemide 40 MG TABLET PO SCH (08:51)
[2017-12-24] MEDS: Insulin LISPRO 300 UNITS/3 ML VIAL SQ SCH ×4 (08:54→22:02)
[2017-12-24 09:48] LABS: Smooth Muscle Ab Titer IgG <1:20 (<1:20)
[2017-12-24 10:14] LABS: AFP Tumor Marker Non-Pregnant 1 ng/mL (0-9); ANA IgG by ELISA NONE DETECTED (None Detected); F-Actin (sm muscle) Ab IgG 51 Units (0-19); Myeloperoxidase Ab 3 AU/mL (0-19); Serine Protease-3 Antibody 2 AU/mL (0-19)
--- NOTE | 2017-12-24 10:43 | Nephrology Consult Note ---
Date of Encounter: 12/24/17 Time of Encounter: 10:15 Assessment and Plan (1) DREW (acute kidney injury) Current Visit: Yes Status: Acute DREW in setting of cirrhosis, GI losses and poor oral intake superimposed on CKD baseline creat 1.2-1.4, most likely in setting of diabetes, chronic NSAID use, mild atrophic right kidney on Abd US, advancing age contributing. [facility] High dose Gabapentin contributing to LE edema. Avoid Nephrotoxins. Accurate I&O. Will start renal workup. (2) Afib Current Visit: Yes Status: Chronic Qualifiers: Atrial fibrillation type: chronic Qualified Code(s): I48.2 - Chronic atrial fibrillation (3) Ascites Current Visit: Yes Status: Acute Qualifiers: Ascites type: other type Qualified Code(s): R18.8 - Other ascites (4) CAD (coronary artery disease) of artery bypass graft Current Visit: Yes Status: Chronic Qualifiers: [place] vs. transplanted heart: [place] heart Associated angina: without angina Qualified Code(s): I25.810 - Atherosclerosis of coronary artery bypass graft(s) without angina pectoris History of Present Illness - Reason for Consult Acute Kidney Injury - History of Present Illness Mr. Jones is a 77 year old male who presented on Dec 20 with ongoing abdominal pain, N/V and few bouts of diarrhea for two weeks with decreased oral intake. Admits urine output had been decreased also. Other PMH-atrial fibrillation, CHF , COPD, diabetes, diabetic neuropathy, CAD, infrarenal AAA, Cholelithiasis. Admitted with new diagnosis liver cirrhosis, GI following. History heavy alcohol use but states has not drank in 20 years. Paracentesis 6.3 liters. Consulted for worsening renal fct. This morning Mr. Jones is sitting up in chair, currently NPO for testing which he thinks is EGD. He denies any N/V/D and wants to eat. He denies prior knowledge of renal insufficiency. Creat noted 1.2-1.4 in July 2017. Admits diabetes for two years under good control with recent issue of hypoglycemia. He denies proteinuria, hematuria, renal stones or UTI's. He denies NSAID use past or present, though Meloxicam 15 mg daily is noted on home DEC. . He admits LE swelling for past few weeks with abdominal swelling. Past Med Surg Social Fam HX - Past Medical History Medical history: atrial fibrillation, CHF, COPD, diabetes Psychiatric history: no psych history - Past Surgical History Surgical History: appendectomy, coronary bypass (CABG), pacemaker - Social History Smoking Status: Former smoker Smokeless Tobacco Status: No Alcohol use: none Drug use: none Medications and Allergies Apixaban [Eliquis] 5 mg PO BID 08/05/17 [History] Aspirin [Lo-Dose Aspirin EC] 81 mg PO DAILY 08/05/17 [History] Atorvastatin [Lipitor] 40 mg PO HS 08/05/17 [History] Cholecalciferol (Vitamin D3) [Vitamin D3] 800 unit PO DAILY 08/05/17 [History] Cyanocobalamin (B-12) [Vitamin B12] 1,000 mcg PO DAILY 08/05/17 [History] Gabapentin [Neurontin] 1,200 mg PO TID 08/05/17 [History] HYDROcodone/Acet 5/325 mg [[place] 5-325 mg] 1 tab PO TID PRN 08/05/17 [History] Ipratropium/Albuterol Sulfate [Combivent Respimat Inhal [place]] 1 puff IH TID PRN 08/05/17 [History] Lisinopril [Zestril] 15 mg PO DAILY 08/05/17 [History] Meloxicam [Mobic] 15 mg PO DAILY 08/05/17 [History] Metformin HCl [Glucophage] 1,000 mg PO BID 08/05/17 [History] Metoprolol [Lopressor] 25 mg PO BID 08/05/17 [History] Omeprazole [PriLOSEC] 40 mg PO DAILY 08/05/17 [History] Potassium Chloride [Klor-Con 10] 10 meq PO DAILY 08/05/17 [History] Sennosides/Docusate Sodium [Senna-Docusate Sodium Tablet] 1 tab PO BID 08/05/17 [History] Eucerin Creme 1 appl TP DAILY 12/20/17 [History] GuaiFENesin/Dextromethorphan [Tussin Dm Syrup] 10 ml PO BID PRN 12/20/17 [ History] Insulin Glargine [Lantus] 10 unit SQ HS 12/20/17 [History] Lidocaine Patch [Lidoderm 5% patch] 3 each TP DAILY 12/20/17 [History] Nitroglycerin [Nitrostat] 0.4 mg SL Q5M PRN 12/20/17 [History] glipiZIDE [Glipizide] 10 mg PO BID 12/20/17 [History] 3 Allergy/AdvReac Type Severity Reaction Status Date / Time ibuprofen [From Motrin] AdvReac See Verified 12/20/17 19:35 Comments indomethacin [From Indocin] AdvReac See Verified 12/20/17 19:35 Comments naproxen AdvReac See Verified 12/20/17 19:35 Comments Review of Systems All Systems: reviewed and no additional remarkable complaints except as stated Exam - Vital Signs Vital signs: Initial Vital Signs Temp Pulse Resp BP Pulse Ox 97.2 F L 88 18 131/73 96 12/20/17 14:12 12/20/17 14:12 12/20/17 14:12 12/20/17 14:12 12/20/17 14:12 Vital Signs - Last 8 Hours Temp Pulse Resp BP Pulse Ox 12/24/17 07:37 97.6 F 102 14 93/60 96 12/24/17 03:52 97.9 F 115 14 105/64 95 Intake and Output 12/23/17 12/24/17 12/24/17 23:59 07:59 15:59 Intake Total 714 / 714 0 / 0 Output Total 525 / 525 300 / 300 Balance 189 / 189 -300 / -300 Intake: Oral 714 / 714 0 / 0 Output: Urine 525 / 525 300 / 300 Other: # Bowel Movements 0 Weight 108.85 kg Blood Glucose* 154 163 Patient Weight 12/24/17 23:59 Weight 108.85 kg - General Appearance General appearance: well-developed, well-nourished, appears started age EENT: mucous membranes moist Neck: no JVD Respiratory: clear Cardiology: edema, irregular rhythm Additional Comments: LE edema. 1+ knees down Gastrointestinal: normoactive bowel sounds, no tenderness, distended Integumentary: warm and dry Neurologic: alert and oriented x3 Results - Lab Results 12/24/17 04:39 12/24/17 04:39 Most recent lab results Calcium 9.0 mg/dL (8.6-10.3) 12/24/17 04:39 Magnesium 1.8 mg/dL (1.6-2.6) 12/23/17 05:04 Urine Sodium 29.7 mEq/L 12/23/17 15:55 Consult Discharge Plan - Plan Referrals: [facility] [Outside]
[2017-12-24 11:39] LABS: Phosphorous 3.3 mg/dL (2.7-4.5); Uric Acid 8.3 mg/dL (2.3-7.6)
--- NOTE | 2017-12-24 14:42 | Internal Med Progress Note ---
Date of Encounter: 12/24/17 Time of Encounter: 10:15 - Assessment and plan (1) Hyperkalemia Current Visit: Yes Status: Acute Assessment and plan: likely due to renal failure; Will give KAYEXALATE and monitor; (2) Abdominal pain Current Visit: Yes Status: Resolved Assessment and plan: Likely secondary to ascites. Improved. Plan as below. Qualifiers: Abdominal location: generalized Qualified Code(s): R10.84 - Generalized abdominal pain (3) Ascites Current Visit: Yes Status: Acute Assessment and plan: Uncertain etiology, possibly autoimmune hepatitis?. F-Actin IgG Ab positive. Viral hepatitis profile negative. Underwent ultrasound-guided paracentesis by IR, drained at least 6300 mL of peritoneal fluid. SAAG above 1.2, suggestive of portal HTN. Gram stain and fluid preliminary culture negative. Follow-up pathology. Continue oral Lasix, fluid restriction, when necessary lactulose. GI on board, will consider EGD after stopping Eliquis for 5 days; ascites reaccumulating; Qualifiers: Ascites type: other type Qualified Code(s): R18.8 - Other ascites (4) CAD (coronary artery disease) of artery bypass graft Current Visit: Yes Status: Chronic Assessment and plan: Continue aspirin, beta francisca, statin. Changed Metoprolol to Coreg for portal HTN; Qualifiers: [place] vs. transplanted heart: [place] heart Associated angina: without angina Qualified Code(s): I25.810 - Atherosclerosis of coronary artery bypass graft(s) without angina pectoris (5) CKD (chronic kidney disease) stage 3, GFR 30-59 ml/min Current Visit: Yes Status: Chronic Assessment and plan: Serum creatinine noted to be worsening, 2.21 today (baseline 1.2-1.4). Likely hepatorenal syndrome, use of diuretics, large volume paracentesis; did receive 50g Albumin after paracentesis; held ACEI; Continue to monitor closely; Nephrology consulted; (6) Liver cirrhosis Current Visit: Yes Status: Chronic Assessment and plan: GI on board; needs outpatient f/up; plan as above; Qualifiers: Hepatic cirrhosis type: other cirrhosis Qualified Code(s): K74.69 - Other cirrhosis of liver (7) Afib Current Visit: Yes Status: Chronic Assessment and plan: Currently rate controlled. Beta francisca has been changed to Coreg to help with portal hypertension. Doses are being held intermittently due to hypotension. Hold Eliquis for 5 days, for possible EGD; given high CHADS-VASC score of at least 4-5, will start IV Heparin for uninterrupted anticoagulation; Qualifiers: Atrial fibrillation type: chronic Qualified Code(s): I48.2 - Chronic atrial fibrillation (8) COPD (chronic obstructive pulmonary disease) Current Visit: Yes Status: Chronic Qualifiers: COPD type: chronic bronchitis Chronic bronchitis type: simple Qualified Code(s): J41.0 - Simple chronic bronchitis (9) Diabetes Current Visit: Yes Status: Chronic Assessment and plan: Continue Accu-Chek blood glucose monitoring with sliding scale insulin. Diabetic diet. Blood sugars well controlled. Qualifiers: Diabetes mellitus type: type 2 Diabetes mellitus complication status: with kidney complications Diabetes mellitus complication detail: with chronic kidney disease Diabetes mellitus fdc insulin use: without warp knitter helper use Chronic kidney disease stage: stage 3 (moderate) Qualified Code(s): E11.22 - Type 2 diabetes mellitus with diabetic chronic kidney disease; N18.3 - Chronic kidney disease, stage 3 (moderate); N18.3 - Chronic kidney disease, stage 3 (moderate) - Subjective Interval history: Reports feeling hungry; possible EGD today; continues to have leg swelling and abdominal distension; no chest pain, shortness of breath, abdominal pain; - Constitutional Vitals: Temp Pulse Resp BP Pulse Ox 97.6 F 76 14 95/60 94 12/24/17 11:30 12/24/17 11:30 12/24/17 11:30 12/24/17 11:30 12/24/17 11:30 General appearance: Present: A&O X 3, obese, answers questions appropriately - Respiratory Respiratory exam: Present: CTAB. Absent: accessory muscle use, rales, rhonchi, wheezes - Cardiovascular Cardiovascular exam: Present: irregular rhythm, +S1, +S2. Absent: diastolic murmur, gallop, rubs, systolic murmur - GI/Abdominal GI/Abdominal exam: Present: distended (ascites+), normal bowel sounds, soft, no peritoneal signs. Absent: tenderness - Extremities Exam Extremities exam: Present: pedal edema (tense pedal edema B/L), warm, radial pulses palpable and symmetrical. Absent: calf tenderness, cyanotic - Neurological Exam Neurological exam: Present: CN II-XII intact, oriented X3, no focal deficits. Absent: pronater drift, facial droop, speech deficit Internal Medicine: Result - Labs CBC & Chem 7: 12/24/17 04:39 12/24/17 04:39 Labs: Short CBC 12/24/17 Range/Units 04:39 WBC 5.0 (4.3-11.1) K/mcL Hgb 9.6 L (12.9-16.9) g/dL Hct 30.2 L (37.5-50.1) % Plt Count 111 L (140-400) K/mcL Neutrophils # 3.4 (1.6-8.9) K/mcL BMP 12/24/17 04:39 Sodium 136 Potassium 5.4 H Chloride 105 Carbon Dioxide 25 BUN 55 H Creatinine 2.21 H Glucose 148 H Calcium 9.0 - ABG Interpretation ABG results: PT/INR, D-dimer PT 17.1 Seconds (9.4-12.1) H 12/20/17 15:14 Consult Discharge Plan - Plan Referrals: [facility] [Outside]
[2017-12-24] MEDS: *HR* OxyCODONE Immed Rel 5 MG TABLET PO PRN ×2 (14:50→22:07)
[2017-12-24] MEDS ORDERED: *HR* Heparin 5,000 UNIT/ML VIAL IVP PRN (14:51)
[2017-12-24] MEDS ORDERED: *HR* Heparin 5,000 UNIT/ML VIAL IVP ONE (14:51)
[2017-12-24 15:19] LABS: INR 1.6; Prothrombin Time 17.2 Seconds (9.4-12.1)
[2017-12-24 15:20] LABS: Hematocrit 29.6 % (37.5-50.1); Hemoglobin 9.3 g/dL (12.9-16.9); Mean Corpuscular HGB Conc 31.4 g/dL (31.6-35.5); Mean Corpuscular Volume 89.2 fL (83.0-100.0); Mean Platelet Volume 11.7 fL (9.4-12.4); Platelet Count 101 K/mcL (140-400); Red Blood Count 3.32 M/mcL (4.19-5.50); Red Cell Distribution Width 16.1 % (11.5-14.5)
[2017-12-24 15:22] LABS: Activated Partial Thrombo Time 41.9 Seconds (26.0-36.0)
--- NOTE | 2017-12-24 15:34 | Event Note ---
Date of Encounter: 12/24/17 Time of Encounter: 10:45 Pt was scheduled for EGD today to evaluate for esophageal varices but he had eliquis yesterday. Eliquis will need to be held for 5 days based on a creatinine clearance of 44. Will follow up and schedule EGD as outpatient.
[2017-12-24] MEDS: Heparin 25,000 UNIT/500 ML D5W 25,000 UNIT/500 ML BAG IVC SCH (16:11)
[2017-12-25 01:01] LABS: Basophils % 0.7 %; Eosinophils # 0.2 K/mcL (0.0-0.6); Eosinophils % 3.1 %; Hematocrit 29.1 % (37.5-50.1); Hemoglobin 9.2 g/dL (12.9-16.9); Immature Granulocytes % 0.4 % (0-4); Lymphocytes # 0.9 K/mcL (0.6-4.6); Lymphocytes % 16.3 %; Mean Corpuscular HGB Conc 31.6 g/dL (31.6-35.5); Mean Corpuscular Hemoglobin 28.3 pg (28.0-33.3); Mean Corpuscular Volume 89.5 fL (83.0-100.0); Mean Platelet Volume 12.4 fL (9.4-12.4); Monocytes # 0.7 K/mcL (0.0-1.3); Monocytes % 12.6 %; Neutrophils # 3.6 K/mcL (1.6-8.9); Platelet Count 103 K/mcL (140-400); Red Blood Count 3.25 M/mcL (4.19-5.50); Red Cell Distribution Width 15.9 % (11.5-14.5); Segmented Neutrophils % 66.9 %
[2017-12-25 01:29] LABS: Calcium 8.8 mg/dL (8.6-10.3); Potassium 4.7 mEq/L (3.5-5.1)
[2017-12-25 01:47] LABS: Activated Partial Thrombo Time > 360.0 Seconds (26.0-36.0)
[2017-12-25 01:53] LABS: Heparin anti-factor XA UFH 0.71 IU/mL (0.30-0.70)
[2017-12-25] MEDS: Lactulose Oral Soln 20 GM/30 ML UDC PO SCH ×2 (08:42→21:51)
[2017-12-25] MEDS: Aspirin Enteric Coated 81 MG Tablet PO SCH (08:43)
[2017-12-25] MEDS: Gabapentin 400 MG CAPSULE PO SCH ×2 (08:43→21:49)
[2017-12-25] MEDS: *HR* OxyCODONE Immed Rel 5 MG TABLET PO PRN ×3 (08:44→21:50)
[2017-12-25] MEDS: Cholecalciferol (D-3) 1,000 UNIT TABLET PO SCH (08:45)
[2017-12-25] MEDS: Cyanocobalamin (B-12) 1,000 MCG TABLET PO SCH (08:45)
[2017-12-25] MEDS: Furosemide 40 MG TABLET PO SCH (08:45)
[2017-12-25] MEDS: Insulin LISPRO 300 UNITS/3 ML VIAL SQ SCH ×4 (08:47→21:51)
[2017-12-25 11:08] LABS: Activated Partial Thrombo Time 126.2 Seconds (26.0-36.0)
[2017-12-25 11:15] LABS: Heparin anti-factor XA UFH 0.44 IU/mL (0.30-0.70)
--- NOTE | 2017-12-25 13:20 | Nephrology Progress Note ---
Date of Encounter: 12/25/17 Time of Encounter: 13:18 - Assessment and Plan (1) DREW (acute kidney injury) Current Visit: Yes Status: Acute Patient has acute kidney injury superimposed on chronic kidney disease in the setting of paracentesis and intravascular volume depletion. His renal function is improving. He does remain chronically volume overloaded. I would suggest that Time the patient undergoes a therapeutic paracentesis that less volume is removed. (2) Ascites Current Visit: Yes Status: Acute Qualifiers: Ascites type: other type Qualified Code(s): R18.8 - Other ascites (3) CKD (chronic kidney disease) stage 3, GFR 30-59 ml/min Current Visit: Yes Status: Chronic Subjective Interval history: Patient reports he is feeling better. He denies any current complaints. He continues to experience swelling as well as ascites. He has chronic shortness of breath which she says is no worse than usual. Objective - Vital Signs Vital signs: Vital Signs Temp Pulse Resp BP Pulse Ox 12/25/17 11:28 97.4 F L 83 19 100/62 97 12/25/17 07:29 98.1 F 93 20 97/62 97 12/25/17 04:45 99.0 F 82 15 101/72 99 12/24/17 20:36 98.5 F 85 15 98/66 99 12/24/17 14:34 97.4 F L 85 15 109/68 99 Intake and Output 12/24/17 12/25/17 12/25/17 23:59 07:59 15:59 Intake Total 600 / 600 1014 / 1014 298 / 298 Output Total 500 / 500 200 / 200 100 / 100 Balance 100 / 100 814 / 814 198 / 198 Intake: IV Fluids 294 / 294 178 / 178 Heparin 25,000 UNIT/500 ML D5W 294 / 294 178 / 178 25,000 unit In 500 ml @ 14 UNIT /KG/HR 30.478 mls/hr IVC . [id number] [facility] Rx#:[id number] Oral 600 / 600 720 / 720 120 / 120 Output: Urine 500 / 500 200 / 200 100 / 100 Other: Meal Dinner Breakfast Percent of Meal Consumed 100% 100% Weight 109 kg Blood Glucose* 163 190 144 Patient Weight 12/25/17 23:59 Weight 109 kg - General Appearance Exam: Patient is alert and oriented. He is in no acute distress. Lungsbreath sounds otherwise clear. Heart regular rhythm. Abdomen was distended with ascites. He has at least 2+ lower extremity swelling. - Lab 12/25/17 00:24 12/25/17 00:24 Most recent lab results Calcium 8.8 mg/dL (8.6-10.3) 12/25/17 00:24 Phosphorus 3.3 mg/dL (2.7-4.5) 12/24/17 11:09 Magnesium 1.8 mg/dL (1.6-2.6) 12/23/17 05:04 Urine Sodium 29.7 mEq/L 12/23/17 15:55 Consult Discharge Plan - Plan Referrals: [facility] [Outside]
[2017-12-25] MEDS: Heparin 25,000 UNIT/500 ML D5W 25,000 UNIT/500 ML BAG IVC SCH (15:07)
--- NOTE | 2017-12-25 20:46 | Internal Med Progress Note ---
Date of Encounter: 12/25/17 Time of Encounter: 20:44 - Assessment and plan (1) Hyperkalemia Current Visit: Yes Status: Resolved Assessment and plan: K=4.7. Resolved. Recheck CMP in AM. (2) Ascites Current Visit: Yes Status: Acute Assessment and plan: S/P therapeutic paracentesis. Stable at this time. Pain controlled. Continue PO lasix, fluid restriction, and PRN lactulose. GI consulted; appreciate input - recommend EGD as outpatient due to failure to stop eliquis sufficiently. Qualifiers: Ascites type: other type Qualified Code(s): R18.8 - Other ascites (3) CKD (chronic kidney disease) stage 3, GFR 30-59 ml/min Current Visit: Yes Status: Chronic Assessment and plan: Cr -1.95. Nephrology consulted; appreciate input. Renal function improving. Recheck CMP in AM. (4) Afib Current Visit: Yes Status: Chronic Assessment and plan: Continue coreg and IV heparin. Eliquis held for EGD. Qualifiers: Atrial fibrillation type: chronic Qualified Code(s): I48.2 - Chronic atrial fibrillation (5) COPD (chronic obstructive pulmonary disease) Current Visit: Yes Status: Chronic Qualifiers: COPD type: chronic bronchitis Chronic bronchitis type: simple Qualified Code(s): J41.0 - Simple chronic bronchitis (6) Diabetes Current Visit: Yes Status: Chronic Assessment and plan: Blood glucose well-controlled. Continue accuchecks, SSI, and diabetic diet. Qualifiers: Diabetes mellitus type: type 2 Diabetes mellitus complication status: with kidney complications Diabetes mellitus complication detail: with chronic kidney disease Diabetes mellitus bed bug exterminator insulin use: without detention use Chronic kidney disease stage: stage 3 (moderate) Qualified Code(s): E11.22 - Type 2 diabetes mellitus with diabetic chronic kidney disease; N18.3 - Chronic kidney disease, stage 3 (moderate); N18.3 - Chronic kidney disease, stage 3 (moderate) (7) Liver cirrhosis Current Visit: Yes Status: Chronic Assessment and plan: GI consulted; appreciate input. Will need EGD and follow up as outpatient. Qualifiers: Hepatic cirrhosis type: other cirrhosis Qualified Code(s): K74.69 - Other cirrhosis of liver (8) CAD (coronary artery disease) of artery bypass graft Current Visit: Yes Status: Chronic Assessment and plan: Continue aspirin, beta francisca, and statin. Qualifiers: [place] vs. transplanted heart: [place] heart Associated angina: without angina Qualified Code(s): I25.810 - Atherosclerosis of coronary artery bypass graft(s) without angina pectoris - Time Spent With Patient less than 15 minutes - Subjective Interval history: Patient had no acute events overnight. He has some SOB upon awakening, but this is his baseline. He has no breathing treatments ordered. He states abdominal pain is stable. He has no complaints. - Constitutional Vitals: Temp Pulse Resp BP Pulse Ox 98.3 F 70 19 99/66 98 12/25/17 14:16 12/25/17 14:16 12/25/17 14:16 12/25/17 14:16 12/25/17 14:16 General appearance: Present: A&O X 3, no acute distress, obese, answers questions appropriately - Respiratory Respiratory exam: Present: CTAB. Absent: accessory muscle use, rales, rhonchi, wheezes Additional comments: Normal WOB - Cardiovascular Cardiovascular exam: Present: RRR, +S1, +S2. Absent: diastolic murmur, gallop, rubs, systolic murmur Additional comments: Mild BLE edema. - GI/Abdominal GI/Abdominal exam: Present: distended, normal bowel sounds, tenderness. Absent : hepatomegaly, mass, splenomegaly Additional comments: Positive fluid wave. - Psychiatric Psychiatric exam: Present: normal affect, normal mood. Absent: anxious, depressed - Skin Skin exam: Present: dry, intact, warm. Absent: cyanosis, rash Internal Medicine: Result - Labs CBC & Chem 7: 12/25/17 00:24 12/25/17 00:24 Labs: Short CBC 12/25/17 Range/Units 00:24 WBC 5.4 (4.3-11.1) K/mcL Hgb 9.2 L (12.9-16.9) g/dL Hct 29.1 L (37.5-50.1) % Plt Count 103 L (140-400) K/mcL Neutrophils # 3.6 (1.6-8.9) K/mcL BMP 12/25/17 00:24 Sodium 136 Potassium 4.7 Chloride 104 Carbon Dioxide 26 BUN 60 H Creatinine 1.95 H Glucose 150 H Calcium 8.8 - ABG Interpretation ABG results: PT/INR, D-dimer PT 17.2 Seconds (9.4-12.1) H 12/24/17 15:00 Consult Discharge Plan - Plan Referrals: [facility] [Outside] - 01/04/18 2:15 pm
[2017-12-26] MEDS: Heparin 25,000 UNIT/500 ML D5W 25,000 UNIT/500 ML BAG IVC SCH ×2 (01:08→21:28)
[2017-12-26 01:39] LABS: Albumin 3.7 g/dL (3.5-5.7); Albumin/Globulin Ratio 1.3 (1.1-2.2); Bilirubin,Total 0.9 mg/dL (0.3-1.0); Globulin 2.9 g/dL (2.4-3.5); Total Protein 6.6 g/dL (6.4-8.9)
[2017-12-26] MEDS: *HR* OxyCODONE Immed Rel 5 MG TABLET PO PRN ×3 (05:05→19:47)
[2017-12-26] MEDS: Gabapentin 400 MG CAPSULE PO SCH (08:50)
[2017-12-26] MEDS: Lactulose Oral Soln 20 GM/30 ML UDC PO SCH ×2 (08:50→21:27)
[2017-12-26] MEDS: Cholecalciferol (D-3) 1,000 UNIT TABLET PO SCH (08:50)
[2017-12-26] MEDS: Cyanocobalamin (B-12) 1,000 MCG TABLET PO SCH (08:50)
[2017-12-26] MEDS: Furosemide 40 MG TABLET PO SCH ×2 (08:50→17:35)
[2017-12-26] MEDS: Aspirin Enteric Coated 81 MG Tablet PO SCH (08:51)
[2017-12-26] MEDS: Insulin LISPRO 300 UNITS/3 ML VIAL SQ SCH ×4 (08:54→21:42)
--- NOTE | 2017-12-26 08:54 | Nephrology Progress Note ---
Date of Encounter: 12/26/17 Time of Encounter: 08:52 - Assessment and Plan (1) DREW (acute kidney injury) Current Visit: Yes Status: Acute Patient has acute kidney injury superimposed on chronic kidney disease in the setting of paracentesis and intravascular volume depletion. The patient may require an increase in his diuretics if his renal function remained stable. We will continue to monitor him. (2) Ascites Current Visit: Yes Status: Acute Qualifiers: Ascites type: other type Qualified Code(s): R18.8 - Other ascites (3) CKD (chronic kidney disease) stage 3, GFR 30-59 ml/min Current Visit: Yes Status: Chronic Subjective Interval history: The patient continues to experience lower extremity swelling as well as ascites. Serum creatinine is essentially stable. He is above his usual baseline levels however. Urine output is 1.1 L intake is 2.1 L. Objective - Vital Signs Vital signs: Vital Signs Temp Pulse Resp BP Pulse Ox 12/26/17 07:17 97.8 F 98 19 106/71 98 12/26/17 05:31 97.8 F 75 20 119/73 95 12/25/17 22:18 96 12/25/17 21:14 97.9 F 77 19 100/61 96 12/25/17 14:16 98.3 F 70 19 99/66 98 12/25/17 11:28 97.4 F L 83 19 100/62 97 Intake and Output 12/25/17 12/26/17 12/26/17 23:59 07:59 15:59 Intake Total 556 / 556 99 / 99 Output Total 800 / 800 400 / 400 Balance -244 / -244 -301 / -301 Intake: IV Fluids 99 / 99 Heparin 25,000 UNIT/500 ML D5W 99 / 99 25,000 unit In 500 ml @ 14 UNIT /KG/HR 30.478 mls/hr IVC . [id number] [facility] Rx#:[id number] Oral 480 / 480 0 / 0 Output: Urine 800 / 800 400 / 400 Other: Blood Glucose* 149 151 - General Appearance Exam: Patient is alert and oriented. He is in no acute distress. Lungs do exhibit diminished breath sounds. Heart regular rate and rhythm. Abdomen is distended with ascites. He has 2-3+ lower extremity swelling. - Lab 12/25/17 00:24 12/26/17 00:50 Most recent lab results Calcium 9.0 mg/dL (8.6-10.3) 12/26/17 00:50 Phosphorus 3.3 mg/dL (2.7-4.5) 12/24/17 11:09 Magnesium 1.8 mg/dL (1.6-2.6) 12/23/17 05:04 Urine Sodium 29.7 mEq/L 12/23/17 15:55 Consult Discharge Plan - Plan Referrals: [facility] [Outside] - 01/04/18 2:15 pm
[2017-12-26 16:10] LABS: Alpha 2 Globulin (PEP) 0.62 g/dL (0.48-1.05); Beta Globulin (PEP) 0.68 g/dL (0.48-1.10)
[2017-12-26 17:48] LABS: Bilirubin,Urine Negative (Negative); Blood,Urine Negative (Negative); Clarity,Urine Clear (Clear); Color,Urine Yellow (Yellow); Glucose,Urine (UA) Normal (Normal); Ketones,Urine Negative (Negative); Leukocyte Esterase,Urine Negative (Negative); Nitrite,Urine Negative (Negative); PH,Urine 5.5 pH Units (5.0-8.0); Protein,Urine Negative (Neg-Trace); Specific Gravity,Urine 1.013 (1.010-1.025); Urobilinogen,Urine Normal (Normal)
--- NOTE | 2017-12-26 19:45 | Internal Med Progress Note ---
Date of Encounter: 12/26/17 Time of Encounter: 19:43 - Assessment and plan (1) Hyperkalemia Current Visit: Yes Status: Resolved Assessment and plan: K=5.0. Resolved. Recheck BMP in AM. (2) Ascites Current Visit: Yes Status: Acute Assessment and plan: S/P therapeutic paracentesis. Moderate interval worsening. Pain controlled. Increase PO lasix to 40 mg BID (nephrology states OK due to stable Cr). Continue 2L fluid restriction and PRN lactulose. GI consulted; appreciate input - recommend EGD as outpatient due to failure to stop eliquis sufficiently. Qualifiers: Ascites type: other type Qualified Code(s): R18.8 - Other ascites (3) CKD (chronic kidney disease) stage 3, GFR 30-59 ml/min Current Visit: Yes Status: Chronic Assessment and plan: Cr = 2.06. Nephrology consulted; appreciate input. Renal function stable. Continue to decrease gabapentin dose. Recheck BMP in AM. (4) Afib Current Visit: Yes Status: Chronic Assessment and plan: Continue coreg and IV heparin. Eliquis held for EGD. Qualifiers: Atrial fibrillation type: chronic Qualified Code(s): I48.2 - Chronic atrial fibrillation (5) COPD (chronic obstructive pulmonary disease) Current Visit: Yes Status: Chronic Assessment and plan: Some interval worsening of SOB with new wheezing. Patient has not been getting PRN duonebs. Advised him to ask for it if he is SOB. Part of SOB picture likely due to worsening ascites. Management of ascites as per above. Qualifiers: COPD type: chronic bronchitis Chronic bronchitis type: simple Qualified Code(s): J41.0 - Simple chronic bronchitis (6) Diabetes Current Visit: Yes Status: Chronic Assessment and plan: Blood glucose well-controlled. Continue accuchecks, SSI, and diabetic diet. Qualifiers: Diabetes mellitus type: type 2 Diabetes mellitus complication status: with kidney complications Diabetes mellitus complication detail: with chronic kidney disease Diabetes mellitus intermediate teacher insulin use: without penitentiary use Chronic kidney disease stage: stage 3 (moderate) Qualified Code(s): E11.22 - Type 2 diabetes mellitus with diabetic chronic kidney disease; N18.3 - Chronic kidney disease, stage 3 (moderate); N18.3 - Chronic kidney disease, stage 3 (moderate) (7) Liver cirrhosis Current Visit: Yes Status: Chronic Assessment and plan: GI consulted; appreciate input. Will need EGD and follow up as outpatient. Qualifiers: Hepatic cirrhosis type: other cirrhosis Qualified Code(s): K74.69 - Other cirrhosis of liver (8) CAD (coronary artery disease) of artery bypass graft Current Visit: Yes Status: Chronic Assessment and plan: Continue aspirin, beta francisca, and statin. Qualifiers: [place] vs. transplanted heart: [place] heart Associated angina: without angina Qualified Code(s): I25.810 - Atherosclerosis of coronary artery bypass graft(s) without angina pectoris - Time Spent With Patient less than 15 minutes - Subjective Interval history: Patient had no acute events overnight. He has some interval worsening of SOB. He feels more pressure in abdomen. He states that he is trying to cut back on fluids. He has no other complaints. - Constitutional Vitals: Temp Pulse Resp BP Pulse Ox 97.4 F L 109 18 111/60 97 12/26/17 12:48 12/26/17 17:45 12/26/17 17:45 12/26/17 17:45 12/26/17 17:45 General appearance: Present: A&O X 3, no acute distress, obese, answers questions appropriately - Respiratory Respiratory exam: Present: wheezes. Absent: accessory muscle use, rales, rhonchi Additional comments: Mild intermittent expiratory wheezing. Normal WOB. - Cardiovascular Cardiovascular exam: Present: RRR, +S1, +S2. Absent: diastolic murmur, gallop, rubs, systolic murmur Additional comments: Moderate BLE edema. - GI/Abdominal GI/Abdominal exam: Present: distended, firm, normal bowel sounds, tenderness. Absent: hepatomegaly, mass Additional comments: Positive fluid wave - Psychiatric Psychiatric exam: Present: normal affect, normal mood. Absent: anxious, depressed - Skin Skin exam: Present: dry, intact, warm. Absent: cyanosis, rash Internal Medicine: Result - Labs CBC & Chem 7: 12/25/17 00:24 12/26/17 00:50 Labs: BMP 12/26/17 00:50 Sodium 134 L Potassium 5.0 Chloride 104 Carbon Dioxide 23 BUN 67 H Creatinine 2.06 H Glucose 179 H Calcium 9.0 Liver Function 12/26/17 Range/Units 00:50 Total Bilirubin 0.9 (0.3-1.0) mg/dL AST 34 (13-39) Units/L ALT 21 (7-52) Units/L Alkaline Phosphatase 120 H (34-104) Units/L Albumin 3.7 (3.5-5.7) g/dL Urine 12/24/17 Range/Units 17:15 Urine Color Yellow (Yellow) Urine Clarity Clear (Clear) Urine pH 5.5 (5.0-8.0) pH Units Ur Specific [place] 1.013 (1.010-1.025) Urine Protein Negative (Neg-Trace) mg/dL Urine Glucose (UA) Normal (Normal) mg/dL - ABG Interpretation ABG results: PT/INR, D-dimer PT 17.2 Seconds (9.4-12.1) H 12/24/17 15:00 - VTE Contraindication No Overlap Therapy: Admin of oral Factor Xa Inhibitor Consult Discharge Plan - Plan Referrals: [facility] [Outside] - 01/04/18 2:15 pm
[2017-12-26] MEDS: Ipratropium/Albuterol Neb 3 ML IH PRN (20:31)
[2017-12-26 21:02] LABS: Creatinine,Urine 94 mg/dL; Microalbum/Creatinine Ratio,Ur 7 mcg/mg (Less than 30); Microalbumin,Urine 7 mg/L
[2017-12-26] MEDS: Gabapentin 300 MG CAPSULE PO SCH (21:27)
[2017-12-27] MEDS: *HR* Heparin 5,000 UNIT/ML VIAL IVP PRN (01:35)
[2017-12-27 01:40] LABS: Calcium 9.2 mg/dL (8.6-10.3); Potassium 5.2 mEq/L (3.5-5.1)
[2017-12-27] MEDS: OXYCODONE Oral CONC 10 MG/0.5 ML ORAL.SYG SL PRN ×3 (04:20→17:19)
[2017-12-27 07:37] LABS: IFE Reflexed NOT DONE
[2017-12-27] MEDS: Aspirin Enteric Coated 81 MG Tablet PO SCH (08:22)
[2017-12-27] MEDS: Lactulose Oral Soln 20 GM/30 ML UDC PO SCH ×2 (08:22→22:05)
[2017-12-27] MEDS: Gabapentin 300 MG CAPSULE PO SCH ×2 (08:22→22:05)
[2017-12-27] MEDS: Furosemide 40 MG TABLET PO SCH ×2 (08:22→16:36)
[2017-12-27] MEDS: Cholecalciferol (D-3) 1,000 UNIT TABLET PO SCH (08:22)
[2017-12-27] MEDS: Cyanocobalamin (B-12) 1,000 MCG TABLET PO SCH (08:22)
[2017-12-27] MEDS: Insulin LISPRO 300 UNITS/3 ML VIAL SQ SCH ×4 (08:23→22:04)
[2017-12-27] MEDS: Ipratropium/Albuterol Neb 3 ML IH PRN (11:09)
--- NOTE | 2017-12-27 12:38 | Nephrology Progress Note ---
Date of Encounter: 12/27/17 Time of Encounter: 12:15 - Assessment and Plan (1) DREW (acute kidney injury) Current Visit: Yes Status: Acute acute kidney injury superimposed on chronic kidney disease in the setting of paracentesis and intravascular volume depletion. Renalfct stable, though above patient baseline 1.25-1.45. I&O's. Avoid nephrotoxins. Will continue to monitor (2) Afib Current Visit: Yes Status: Chronic Qualifiers: Atrial fibrillation type: chronic Qualified Code(s): I48.2 - Chronic atrial fibrillation (3) Ascites Current Visit: Yes Status: Acute Qualifiers: Ascites type: other type Qualified Code(s): R18.8 - Other ascites (4) CAD (coronary artery disease) of artery bypass graft Current Visit: Yes Status: Chronic Qualifiers: [place] vs. transplanted heart: [place] heart Associated angina: without angina Qualified Code(s): I25.810 - Atherosclerosis of coronary artery bypass graft(s) without angina pectoris Subjective Interval history: Sitting up on edge of bed. Admits shortness of breath with little activity. Objective - Vital Signs Vital signs: Vital Signs Temp Pulse Resp BP Pulse Ox 12/27/17 11:49 97.6 F 110 20 126/57 99 12/27/17 11:10 16 99 12/27/17 08:11 97.9 F 72 18 130/85 94 12/27/17 04:44 98.6 F 99 16 103/58 95 12/27/17 00:40 98.0 F 87 15 95/59 100 12/26/17 20:31 20 98 12/26/17 20:09 97.9 F 98 16 116/74 99 12/26/17 19:54 97 12/26/17 17:45 109 18 111/60 97 12/26/17 12:48 97.4 F L 87 20 109/66 97 Intake and Output 12/26/17 12/27/17 12/27/17 23:59 07:59 15:59 Intake Total 325 / 325 67 / 67 625 / 625 Output Total 700 / 700 150 / 150 Balance 325 / 325 -633 / -633 475 / 475 Intake: IV Fluids 325 / 325 67 / 67 145 / 145 Heparin 25,000 UNIT/500 ML D5W 325 / 325 67 / 67 145 / 145 25,000 unit In 500 ml @ 14 UNIT /KG/HR 30.478 mls/hr IVC . [id number] [facility] Rx#:[id number] Oral 0 / 0 480 / 480 Output: Urine 700 / 700 150 / 150 Other: Meal Breakfast Percent of Meal Consumed 100% Blood Glucose* 170 221 - General Appearance General appearance: Present: well-developed, well-nourished, appears started age EENT: Present: mucous membranes moist Neck: Present: no JVD Respiratory: Present: clear Cardiology: Present: edema, regular rate, regular rhythm Additional Comments: ascites, dependent edema buttock/LE Gastrointestinal: Present: normoactive bowel sounds, no tenderness Integumentary: Present: warm and dry Neurologic: Present: alert and oriented x3 - Lab 12/25/17 00:24 12/27/17 00:55 Most recent lab results Calcium 9.2 mg/dL (8.6-10.3) 12/27/17 00:55 Phosphorus 3.3 mg/dL (2.7-4.5) 12/24/17 11:09 Magnesium 1.8 mg/dL (1.6-2.6) 12/23/17 05:04 Urine Creatinine 94 mg/dL 12/24/17 10:59 Urine Sodium 29.7 mEq/L 12/23/17 15:55 - VTE Contraindication No Overlap Therapy: Admin of oral Factor Xa Inhibitor Consult Discharge Plan - Plan Referrals: [facility] [Outside] - 01/04/18 2:15 pm
[2017-12-27] MEDS: Ondansetron 4 MG/2 ML VIAL IVP PRN (18:29)
--- NOTE | 2017-12-27 18:48 | Internal Med Progress Note ---
Date of Encounter: 12/27/17 Time of Encounter: 18:45 - Assessment and plan (1) Ascites Current Visit: Yes Status: Acute Assessment and plan: S/P therapeutic paracentesis. Some interval improvement subjectively per patient. Pain controlled. Continue PO lasix 40 mg BID (nephrology states OK due to stable Cr). Continue 2L fluid restriction and PRN lactulose. GI consulted; appreciate input - recommend EGD as outpatient due to failure to stop eliquis sufficiently; will plan on scheduling for Sunday if discharged tomorrow. Qualifiers: Ascites type: other type Qualified Code(s): R18.8 - Other ascites (2) Hyperkalemia Current Visit: Yes Status: Acute Assessment and plan: K=5.2. Give kayexalate 15 gram once. Recheck BMP in AM. (3) CKD (chronic kidney disease) stage 3, GFR 30-59 ml/min Current Visit: Yes Status: Chronic Assessment and plan: Cr = 2.00. Nephrology consulted; appreciate input. Renal function stable. Continue to decrease gabapentin dose. Recheck BMP in AM. (4) Afib Current Visit: Yes Status: Chronic Assessment and plan: Continue coreg and IV heparin. Eliquis held for EGD. Qualifiers: Atrial fibrillation type: chronic Qualified Code(s): I48.2 - Chronic atrial fibrillation (5) COPD (chronic obstructive pulmonary disease) Current Visit: Yes Status: Chronic Assessment and plan: SOB improved today; wheezing resolved. Continue PRN duonebs. Advised him to ask for it if he is SOB. Management of ascites as per above. Qualifiers: COPD type: chronic bronchitis Chronic bronchitis type: simple Qualified Code(s): J41.0 - Simple chronic bronchitis (6) Diabetes Current Visit: Yes Status: Chronic Assessment and plan: Blood glucose well-controlled. Continue accuchecks, SSI, and diabetic diet. Qualifiers: Diabetes mellitus type: type 2 Diabetes mellitus complication status: with kidney complications Diabetes mellitus complication detail: with chronic kidney disease Diabetes mellitus intermediate manager insulin use: without intermediate manager use Chronic kidney disease stage: stage 3 (moderate) Qualified Code(s): E11.22 - Type 2 diabetes mellitus with diabetic chronic kidney disease; N18.3 - Chronic kidney disease, stage 3 (moderate); N18.3 - Chronic kidney disease, stage 3 (moderate) (7) Liver cirrhosis Current Visit: Yes Status: Chronic Assessment and plan: GI consulted; appreciate input. Will need EGD and follow up as outpatient; will try to set up prior to discharge as per above. Qualifiers: Hepatic cirrhosis type: other cirrhosis Qualified Code(s): K74.69 - Other cirrhosis of liver (8) CAD (coronary artery disease) of artery bypass graft Current Visit: Yes Status: Chronic Assessment and plan: Continue aspirin, beta francisca, and statin. Qualifiers: [place] vs. transplanted heart: [place] heart Associated angina: without angina Qualified Code(s): I25.810 - Atherosclerosis of coronary artery bypass graft(s) without angina pectoris - Time Spent With Patient 25 - 35 minutes - Subjective Interval history: Patient had no acute events overnight. He states that he is breathing much better today. He feels abdomen looks smaller. He continues to cut back on fluids and salt. He has no other complaints. Spoke with son today. Patient will be going home and working on home health with [facility]. - Constitutional Vitals: Temp Pulse Resp BP Pulse Ox 97.4 F L 72 18 98/64 97 12/27/17 15:40 12/27/17 15:40 12/27/17 15:40 12/27/17 15:40 12/27/17 15:40 General appearance: Present: A&O X 3, no acute distress, obese, answers questions appropriately - Respiratory Respiratory exam: Present: CTAB. Absent: accessory muscle use, rales, rhonchi, wheezes Additional comments: Normal WOB - Cardiovascular Cardiovascular exam: Present: RRR, +S1, +S2. Absent: diastolic murmur, gallop, rubs, systolic murmur Additional comments: Moderate BLE edema - GI/Abdominal GI/Abdominal exam: Present: distended, firm, normal bowel sounds. Absent: hepatomegaly, mass, splenomegaly, tenderness Additional comments: Positive fluid wave - Psychiatric Psychiatric exam: Present: normal affect, normal mood. Absent: anxious, depressed - Skin Skin exam: Present: dry, intact, warm. Absent: cyanosis, rash Internal Medicine: Result - Labs CBC & Chem 7: 12/25/17 00:24 12/27/17 00:55 Labs: BMP 12/27/17 00:55 Sodium 133 L Potassium 5.2 H Chloride 103 Carbon Dioxide 24 BUN 70 H Creatinine 2.00 H Glucose 169 H Calcium 9.2 - ABG Interpretation ABG results: PT/INR, D-dimer PT 17.2 Seconds (9.4-12.1) H 12/24/17 15:00 - VTE Contraindication No Overlap Therapy: Admin of oral Factor Xa Inhibitor Consult Discharge Plan - Plan Referrals: [facility] [Outside] - 01/04/18 2:15 pm
[2017-12-27] MEDS: Heparin 25,000 UNIT/500 ML D5W 25,000 UNIT/500 ML BAG IVC SCH ×2 (19:33→23:59)
[2017-12-28 05:31] LABS: Calcium 9.4 mg/dL (8.6-10.3); Potassium 5.3 mEq/L (3.5-5.1)
[2017-12-28] MEDS: OXYCODONE Oral CONC 10 MG/0.5 ML ORAL.SYG SL PRN ×2 (06:02→16:48)
[2017-12-28] MEDS: Insulin LISPRO 300 UNITS/3 ML VIAL SQ SCH ×3 (08:49→22:17)
[2017-12-28] MEDS ORDERED: Ondansetron 4 MG/2 ML VIAL IVP STA (09:32)
--- NOTE | 2017-12-28 09:34 | Nephrology Progress Note ---
Date of Encounter: 12/28/17 Time of Encounter: 08:50 - Assessment and Plan (1) DREW (acute kidney injury) Current Visit: Yes Status: Acute acute kidney injury superimposed on chronic kidney disease in the setting of paracentesis and intravascular volume depletion. Renal fct improving, creat 1.86. Patient baseline 1.25-1.45. Documented urine outpurt 1400cc. I&O's. Avoid nephrotoxins. Will continue to monitor (2) Afib Current Visit: Yes Status: Chronic Qualifiers: Atrial fibrillation type: chronic Qualified Code(s): I48.2 - Chronic atrial fibrillation (3) Ascites Current Visit: Yes Status: Acute Qualifiers: Ascites type: other type Qualified Code(s): R18.8 - Other ascites (4) CAD (coronary artery disease) of artery bypass graft Current Visit: Yes Status: Chronic Qualifiers: [place] vs. transplanted heart: [place] heart Associated angina: without angina Qualified Code(s): I25.810 - Atherosclerosis of coronary artery bypass graft(s) without angina pectoris Subjective Interval history: Sitting up on edge of bed. Admits shortness of breath with little activity. Feels abdomen enlarging and LE more swollen Objective - Vital Signs Vital signs: Vital Signs Temp Pulse Resp BP Pulse Ox 12/28/17 08:00 97.6 F 110 18 112/73 95 12/28/17 04:35 97.4 F L 86 17 113/57 96 12/27/17 22:16 96 12/27/17 20:26 98.1 F 96 16 111/71 96 12/27/17 15:40 97.4 F L 72 18 98/64 97 12/27/17 11:49 97.6 F 110 20 126/57 99 12/27/17 11:10 16 99 Intake and Output 12/27/17 12/28/17 12/28/17 23:59 07:59 15:59 Intake Total 528 / 528 0 / 0 240 / 240 Output Total 300 / 300 200 / 200 400 / 400 Balance 228 / 228 -200 / -200 -160 / -160 Intake: IV Fluids 288 / 288 Heparin 25,000 UNIT/500 ML D5W 288 / 288 25,000 unit In 500 ml @ 14 UNIT /KG/HR 30.478 mls/hr IVC . [id number] [facility] Rx#:[id number] Oral 240 / 240 0 / 0 240 / 240 Output: Urine 300 / 300 200 / 200 400 / 400 Other: Meal Dinner Breakfast Percent of Meal Consumed 100% 100% Blood Glucose* 217 137 - General Appearance General appearance: Present: well-developed, well-nourished, appears started age EENT: Present: mucous membranes moist Neck: Present: no JVD Respiratory: Present: clear Cardiology: Present: regular rate, regular rhythm Additional Comments: 2-3+ edema buttock/LE Gastrointestinal: Present: hypoactive bowel sounds, no tenderness, distended Integumentary: Present: warm and dry Neurologic: Present: alert and oriented x3 - Lab 12/25/17 00:24 12/28/17 04:04 Most recent lab results Calcium 9.4 mg/dL (8.6-10.3) 12/28/17 04:04 Phosphorus 3.3 mg/dL (2.7-4.5) 12/24/17 11:09 Magnesium 1.8 mg/dL (1.6-2.6) 12/23/17 05:04 Urine Creatinine 94 mg/dL 12/24/17 10:59 Urine Sodium 29.7 mEq/L 12/23/17 15:55 - VTE Contraindication No Overlap Therapy: Admin of oral Factor Xa Inhibitor Consult Discharge Plan - Plan Referrals: [facility] [Outside] - 01/04/18 2:15 pm
[2017-12-28] MEDS: Cyanocobalamin (B-12) 1,000 MCG TABLET PO SCH (10:07)
[2017-12-28] MEDS: Gabapentin 300 MG CAPSULE PO SCH ×2 (10:07→22:13)
[2017-12-28] MEDS: Lactulose Oral Soln 20 GM/30 ML UDC PO SCH ×3 (10:07→22:12)
[2017-12-28] MEDS: Aspirin Enteric Coated 81 MG Tablet PO SCH (10:08)
[2017-12-28] MEDS: Furosemide 40 MG TABLET PO SCH ×2 (10:08→16:38)
[2017-12-28] MEDS: Cholecalciferol (D-3) 1,000 UNIT TABLET PO SCH (10:08)
[2017-12-28] MEDS: Ipratropium/Albuterol Neb 3 ML IH PRN (11:42)
--- NOTE | 2017-12-28 12:14 | Event Note ---
Date of Encounter: 12/28/17 Time of Encounter: 12:13 Pt needs EGD for esophageal varices. If he remains hospitalized on Sunday will proceed with EGD as he will be off his eliquis >5 days. NPO after midnight on Sunday.
--- NOTE | 2017-12-28 21:09 | Internal Med Progress Note ---
Date of Encounter: 12/28/17 Time of Encounter: 21:07 - Assessment and plan (1) Ascites Current Visit: Yes Status: Acute Assessment and plan: S/P therapeutic paracentesis. Some continued interval improvement subjectively per patient. Pain controlled. Continue PO lasix 40 mg BID (nephrology states OK due to stable Cr). Continue 2L fluid restriction and PRN lactulose. GI consulted; appreciate input. I spoke with GI today; they are recommending EGD on Sunday. Will hold heparin and aspirin after midnight Sunday. Qualifiers: Ascites type: other type Qualified Code(s): R18.8 - Other ascites (2) Hyperkalemia Current Visit: Yes Status: Acute Assessment and plan: K=5.3. Give kayexalate 15 gram once again. Recheck BMP in AM. (3) CKD (chronic kidney disease) stage 3, GFR 30-59 ml/min Current Visit: Yes Status: Chronic Assessment and plan: Cr = 1.86. Nephrology consulted; appreciate input. Renal function stable. Continue to decrease gabapentin dose. Recheck BMP in AM. (4) Afib Current Visit: Yes Status: Chronic Assessment and plan: Continue coreg and IV heparin. Eliquis held for EGD. Hold IV heparin after Sunday midnight as per above. Qualifiers: Atrial fibrillation type: chronic Qualified Code(s): I48.2 - Chronic atrial fibrillation (5) COPD (chronic obstructive pulmonary disease) Current Visit: Yes Status: Chronic Assessment and plan: SOB resolved. Continue PRN duonebs. Advised him to ask for it if he is SOB. Management of ascites as per above. Qualifiers: COPD type: chronic bronchitis Chronic bronchitis type: simple Qualified Code(s): J41.0 - Simple chronic bronchitis (6) Diabetes Current Visit: Yes Status: Chronic Assessment and plan: Blood glucose well-controlled. Continue accuchecks, SSI, and diabetic diet. Qualifiers: Diabetes mellitus type: type 2 Diabetes mellitus complication status: with kidney complications Diabetes mellitus complication detail: with chronic kidney disease Diabetes mellitus skilled nursing insulin use: without skilled nursing use Chronic kidney disease stage: stage 3 (moderate) Qualified Code(s): E11.22 - Type 2 diabetes mellitus with diabetic chronic kidney disease; N18.3 - Chronic kidney disease, stage 3 (moderate); N18.3 - Chronic kidney disease, stage 3 (moderate) (7) Liver cirrhosis Current Visit: Yes Status: Chronic Assessment and plan: GI consulted; appreciate input. EGD on Sunday as per above. Qualifiers: Hepatic cirrhosis type: other cirrhosis Qualified Code(s): K74.69 - Other cirrhosis of liver (8) CAD (coronary artery disease) of artery bypass graft Current Visit: Yes Status: Chronic Assessment and plan: Continue aspirin, beta francisca, and statin. Qualifiers: [place] vs. transplanted heart: [place] heart Associated angina: without angina Qualified Code(s): I25.810 - Atherosclerosis of coronary artery bypass graft(s) without angina pectoris - Time Spent With Patient 25 - 35 minutes - Subjective Interval history: Patient had no acute events overnight. He had some nausea this AM. He is having 1 "good" BM daily. No other complaints. - Constitutional Vitals: Temp Pulse Resp BP Pulse Ox 97.8 F 92 16 111/66 95 12/28/17 20:36 12/28/17 20:36 12/28/17 20:36 12/28/17 20:36 12/28/17 20:36 General appearance: Present: A&O X 3, no acute distress, obese, answers questions appropriately - Respiratory Respiratory exam: Present: CTAB. Absent: accessory muscle use, rales, rhonchi, wheezes Additional comments: Normal WOB - Cardiovascular Cardiovascular exam: Present: RRR, +S1, +S2. Absent: diastolic murmur, gallop, rubs, systolic murmur Additional comments: Moderate BLE edema - GI/Abdominal GI/Abdominal exam: Present: distended, firm, normal bowel sounds. Absent: hepatomegaly, mass, splenomegaly, tenderness Additional comments: Positive fluid wave - Psychiatric Psychiatric exam: Present: normal affect, normal mood. Absent: anxious, depressed - Skin Skin exam: Present: dry, intact, warm. Absent: cyanosis, rash Internal Medicine: Result - Labs CBC & Chem 7: 12/25/17 00:24 12/28/17 04:04 Labs: BMP 12/28/17 04:04 Sodium 132 L Potassium 5.3 H Chloride 103 Carbon Dioxide 22 L BUN 75 H Creatinine 1.86 H Glucose 122 H Calcium 9.4 - ABG Interpretation ABG results: PT/INR, D-dimer PT 17.2 Seconds (9.4-12.1) H 12/24/17 15:00 Consult Discharge Plan - Plan Referrals: [facility] [Outside] - 01/04/18 2:15 pm
[2017-12-29] MEDS: Ondansetron 4 MG/2 ML VIAL IVP PRN (00:14)
[2017-12-29] MEDS: OXYCODONE Oral CONC 10 MG/0.5 ML ORAL.SYG SL PRN ×2 (00:15→06:55)
[2017-12-29] MEDS: Heparin 25,000 UNIT/500 ML D5W 25,000 UNIT/500 ML BAG IVC SCH (00:48)
[2017-12-29 05:32] LABS: Calcium 9.2 mg/dL (8.6-10.3); Potassium 5.2 mEq/L (3.5-5.1)
[2017-12-29] MEDS: Insulin LISPRO 300 UNITS/3 ML VIAL SQ SCH ×5 (07:48→21:28)
--- NOTE | 2017-12-29 08:50 | Nephrology Progress Note ---
Date of Encounter: 12/29/17 Time of Encounter: 08:25 - Assessment and Plan (1) DREW (acute kidney injury) Current Visit: Yes Status: Acute acute kidney injury superimposed on chronic kidney disease in the setting of paracentesis and intravascular volume depletion. Renal fct stable/plateued, creat 1.86. Patient baseline 1.25-1.45. Documented urine output 1150cc. I&O's. Avoid nephrotoxins. Will continue to monitor (2) Afib Current Visit: Yes Status: Chronic Qualifiers: Atrial fibrillation type: chronic Qualified Code(s): I48.2 - Chronic atrial fibrillation (3) Ascites Current Visit: Yes Status: Acute Qualifiers: Ascites type: other type Qualified Code(s): R18.8 - Other ascites (4) CAD (coronary artery disease) of artery bypass graft Current Visit: Yes Status: Chronic Qualifiers: [place] vs. transplanted heart: [place] heart Associated angina: without angina Qualified Code(s): I25.810 - Atherosclerosis of coronary artery bypass graft(s) without angina pectoris Subjective Interval history: Asleep, audible wheezing, use of accessory muscles. Arouses withmild strnal rub. States having chest discomfort. Nursing notified. Skin w/d/p. Objective - Vital Signs Vital signs: Vital Signs Temp Pulse Resp BP Pulse Ox 12/29/17 07:25 99.0 F 107 22 101/63 95 12/29/17 04:00 98.0 F 99 18 117/64 95 12/29/17 00:00 98.3 F 93 18 120/78 99 12/28/17 20:36 97.8 F 92 16 111/66 95 12/28/17 15:27 98.4 F 89 20 119/83 94 12/28/17 11:42 16 100 12/28/17 11:20 97.4 F L 90 20 118/82 99 Intake and Output 12/28/17 12/29/17 12/29/17 23:59 07:59 15:59 Intake Total 500 / 500 Output Total 150 / 150 Balance 350 / 350 Intake: IV Fluids 500 / 500 Heparin 25,000 UNIT/500 ML D5W 500 / 500 25,000 unit In 500 ml @ 14 UNIT /KG/HR 30.478 mls/hr IVC . [id number] LAZARO Rx#:[id number] Output: Urine 150 / 150 Other: Blood Glucose* 199 138 - General Appearance General appearance: Present: well-developed, well-nourished, appears started age , obese EENT: Present: mucous membranes moist Neck: Present: no JVD Respiratory: Present: wheezing Cardiology: Present: edema, regular rate, regular rhythm Gastrointestinal: Present: normoactive bowel sounds, no tenderness Integumentary: Present: warm and dry Psychiatric: Present: cooperative - Lab 12/25/17 00:24 12/29/17 04:29 Most recent lab results Calcium 9.2 mg/dL (8.6-10.3) 12/29/17 04:29 Phosphorus 3.3 mg/dL (2.7-4.5) 12/24/17 11:09 Magnesium 1.8 mg/dL (1.6-2.6) 12/23/17 05:04 Urine Creatinine 94 mg/dL 12/24/17 10:59 Urine Sodium 29.7 mEq/L 12/23/17 15:55 - VTE Contraindication No Overlap Therapy: Admin of oral Factor Xa Inhibitor Consult Discharge Plan - Plan Referrals: [facility] [Outside] - 01/04/18 2:15 pm
[2017-12-29] MEDS: Ipratropium/Albuterol Neb 3 ML IH PRN (08:54)
[2017-12-29] MEDS: Gabapentin 300 MG CAPSULE PO SCH (08:58)
[2017-12-29] MEDS: Aspirin Enteric Coated 81 MG Tablet PO SCH (08:58)
[2017-12-29] MEDS: Furosemide 40 MG TABLET PO SCH (08:59)
[2017-12-29] MEDS: Lactulose Oral Soln 20 GM/30 ML UDC PO SCH ×3 (08:59→21:28)
[2017-12-29] MEDS: Cyanocobalamin (B-12) 1,000 MCG TABLET PO SCH (08:59)
[2017-12-29] MEDS: Cholecalciferol (D-3) 1,000 UNIT TABLET PO SCH (08:59)
[2017-12-29] MEDS ORDERED: Albuterol 2.5 MG/3 ML NEBULIZER IH PRN (12:27)
--- NOTE | 2017-12-29 12:31 | Internal Med Progress Note ---
Date of Encounter: 12/29/17 Time of Encounter: 12:28 - Assessment and plan (1) Ascites Current Visit: Yes Status: Acute Assessment and plan: S/P therapeutic paracentesis. Some interval worsening of edema subjectively per patient. Change to IV lasix 40 mg BID (nephrology states OK due to stable Cr). Continue 2L fluid restriction and PRN lactulose. GI consulted; appreciate input. Scheduled for EGD on Sunday. Will hold heparin and aspirin after midnight Sunday. Qualifiers: Ascites type: other type Qualified Code(s): R18.8 - Other ascites (2) Hyperkalemia Current Visit: Yes Status: Acute Assessment and plan: K=5.2. Give kayexalate 15 gram once again. Recheck BMP in AM. (3) CKD (chronic kidney disease) stage 3, GFR 30-59 ml/min Current Visit: Yes Status: Chronic Assessment and plan: Cr = 1.86. Nephrology consulted; appreciate input. Renal function stable. Continue decreased gabapentin dose. Recheck BMP in AM. (4) Afib Current Visit: Yes Status: Chronic Assessment and plan: Continue coreg and IV heparin. Eliquis held for EGD. Hold IV heparin after Sunday midnight as per above. EKG obtained this AM due to some SOB/chest tightness. EKG showed possible AFib with RVR, HR 104. NSR now with HR 75. Reports no chest pain at this time. Continue to monitor. Qualifiers: Atrial fibrillation type: chronic Qualified Code(s): I48.2 - Chronic atrial fibrillation (5) COPD (chronic obstructive pulmonary disease) Current Visit: Yes Status: Chronic Assessment and plan: Some interval worsening of SOB. He has not been getting PRN duonebs. I will schedule duonebs Q6H and add albuterol nebs Q4H PRN. Management of ascites as per above. Qualifiers: COPD type: chronic bronchitis Chronic bronchitis type: simple Qualified Code(s): J41.0 - Simple chronic bronchitis (6) Diabetes Current Visit: Yes Status: Chronic Assessment and plan: Blood glucose well-controlled. Continue accuchecks, SSI, and diabetic diet. Qualifiers: Diabetes mellitus type: type 2 Diabetes mellitus complication status: with kidney complications Diabetes mellitus complication detail: with chronic kidney disease Diabetes mellitus termite helper insulin use: without termite helper use Chronic kidney disease stage: stage 3 (moderate) Qualified Code(s): E11.22 - Type 2 diabetes mellitus with diabetic chronic kidney disease; N18.3 - Chronic kidney disease, stage 3 (moderate); N18.3 - Chronic kidney disease, stage 3 (moderate) (7) Liver cirrhosis Current Visit: Yes Status: Chronic Assessment and plan: GI consulted; appreciate input. EGD on Sunday as per above. Qualifiers: Hepatic cirrhosis type: other cirrhosis Qualified Code(s): K74.69 - Other cirrhosis of liver (8) CAD (coronary artery disease) of artery bypass graft Current Visit: Yes Status: Chronic Assessment and plan: Continue aspirin, beta francisca, and statin. Qualifiers: [place] vs. transplanted heart: [place] heart Associated angina: without angina Qualified Code(s): I25.810 - Atherosclerosis of coronary artery bypass graft(s) without angina pectoris - Time Spent With Patient 25 - 35 minutes - Subjective Interval history: Patient had no acute events overnight. He states that nausea is resolved. Nursing staff reports that nephrology saw him this morning and they reported SOB and wheezing. Nurse states that she got patient out of chair and he was breathing somewhat better. He seems to get wheezy after sleeping or lying down for a while. EKG was obtained this AM and showed possible Afib with RVR, with HR 104. HR 75 now. He reports some interval increase in edema. Chronic back pain increased somewhat. He has no other complaints. - Constitutional Vitals: Temp Pulse Resp BP Pulse Ox 98.6 F 98 20 104/72 97 12/29/17 11:36 12/29/17 11:36 12/29/17 11:36 12/29/17 11:36 12/29/17 11:36 General appearance: Present: A&O X 3, no acute distress, obese, answers questions appropriately - Respiratory Respiratory exam: Present: CTAB, wheezes. Absent: accessory muscle use, rales, rhonchi Additional comments: Normal WOB - Cardiovascular Cardiovascular exam: Present: RRR, +S1, +S2. Absent: diastolic murmur, gallop, rubs, systolic murmur Additional comments: Moderate BUE and BLE edema. - GI/Abdominal GI/Abdominal exam: Present: distended, firm, normal bowel sounds. Absent: hepatomegaly, mass, splenomegaly, tenderness Additional comments: Positive fluid wave - Psychiatric Psychiatric exam: Present: normal affect, normal mood. Absent: anxious, depressed - Skin Skin exam: Present: dry, intact, warm. Absent: cyanosis, rash Internal Medicine: Result - Labs CBC & Chem 7: 12/25/17 00:24 12/29/17 04:29 Labs: BMP 12/29/17 04:29 Sodium 133 L Potassium 5.2 H Chloride 102 Carbon Dioxide 24 BUN 71 H Creatinine 1.86 H Glucose 145 H Calcium 9.2 - ABG Interpretation ABG results: PT/INR, D-dimer PT 17.2 Seconds (9.4-12.1) H 12/24/17 15:00 - VTE Contraindication No Overlap Therapy: Admin of oral Factor Xa Inhibitor Consult Discharge Plan - Plan Referrals: [facility] [Outside] - 01/04/18 2:15 pm
[2017-12-29] MEDS: Ipratropium/Albuterol Neb 3 ML IH SCH ×2 (15:06→15:14)
[2017-12-29 15:50] LABS: Urine Collection Duration RANDOM hr; Urine Collection Volume RANDOM mL
[2017-12-29] MEDS: *HR* Heparin 5,000 UNIT/ML VIAL IVP PRN (15:50)
[2017-12-29] MEDS: Naloxone 0.4 MG/ML INJ IVP PRN ×2 (17:58→18:17)
[2017-12-29] MEDS: Furosemide 40 MG/4 ML VIAL IVP SCH (18:22)
[2017-12-29] MEDS ORDERED: *HR* Metoprolol 5 MG/5 ML VIAL IVP STA (18:32)
[2017-12-29 18:39] LABS: Basophils % 0.7 %; Eosinophils # 0.2 K/mcL (0.0-0.6); Eosinophils % 3.4 %; Hematocrit 27.5 % (37.5-50.1); Hemoglobin 8.7 g/dL (12.9-16.9); Immature Granulocytes % 0.5 % (0-4); Lymphocytes # 1.1 K/mcL (0.6-4.6); Lymphocytes % 18.4 %; Mean Corpuscular HGB Conc 31.6 g/dL (31.6-35.5); Mean Corpuscular Hemoglobin 28.2 pg (28.0-33.3); Mean Corpuscular Volume 89.3 fL (83.0-100.0); Mean Platelet Volume 12.3 fL (9.4-12.4); Monocytes # 1.2 K/mcL (0.0-1.3); Monocytes % 20.5 %; Neutrophils # 3.3 K/mcL (1.6-8.9); Platelet Count 127 K/mcL (140-400); Red Blood Count 3.08 M/mcL (4.19-5.50); Red Cell Distribution Width 16.3 % (11.5-14.5); Segmented Neutrophils % 56.5 %
[2017-12-29 18:55] LABS: Albumin 3.8 g/dL (3.5-5.7); Albumin/Globulin Ratio 1.2 (1.1-2.2); Bilirubin,Total 1.2 mg/dL (0.3-1.0); Calcium 9.4 mg/dL (8.6-10.3); Globulin 3.2 g/dL (2.4-3.5); Potassium 5.3 mEq/L (3.5-5.1)
[2017-12-29 19:01] LABS: Platelet Estimate Normal (Normal)
[2017-12-29] MEDS ORDERED: Albuterol 2.5 MG/3 ML NEBULIZER IH STA (19:46)
--- NOTE | 2017-12-29 20:16 | Event Note ---
Date of Encounter: 12/29/17 Time of Encounter: 20:12 Called to bedside by patient's nurse Annie due to patient being lethargic and difficult to arouse. He was wearing BiPAP and sleeping at the time of my arrival. He arouse to sternal rub. He responds after multiple prodding. He was given IV narcan x 2, which resulted in some improvement of mental status. O2 saturations WNL. HR somewhat up to mid-100s. Given metoprolol 5 mg IV once due to history of AFib with RVR. Obtained EKG, which was poor due to patient motion, but showed likely NSR with HR 100. Will obtain CMP, CBC, ammonia, and CXR. Ammonia returned somewhat elevated. Will bump up lactulose to QID. He does not seem to be having many BMs. Potassium still elevated at 5.3. Will give albuterol neb once stat. He was given additional dose of kayexalate this AM. Lasix was changed to IV today; he will receive dose this PM. He is waking up a little more at this time. We will keep close supervision of him tonight with nursing staff as there are no step-down beds available. Will not hesitate to transfer to ICU if any issues tonight.
[2017-12-29] MEDS ORDERED: Bisacodyl 10 MG RECTAL SUPPOSITORY RC STA (20:18)
[2017-12-29] MEDS: Levalbuterol Neb 1.25 MG/3 ML IH SCH (22:27)
[2017-12-30] MEDS: Levalbuterol Neb 1.25 MG/3 ML IH SCH ×4 (04:40→22:26)
[2017-12-30 07:01] LABS: Calcium 9.1 mg/dL (8.6-10.3); Potassium 4.6 mEq/L (3.5-5.1)
[2017-12-30] MEDS: Heparin 25,000 UNIT/500 ML D5W 25,000 UNIT/500 ML BAG IVC SCH (08:01)
[2017-12-30] MEDS: Insulin LISPRO 300 UNITS/3 ML VIAL SQ SCH ×3 (08:02→23:54)
[2017-12-30] MEDS: Cholecalciferol (D-3) 1,000 UNIT TABLET PO SCH (08:09)
[2017-12-30] MEDS: Lactulose Oral Soln 20 GM/30 ML UDC PO SCH ×4 (08:09→20:15)
[2017-12-30] MEDS: Furosemide 40 MG/4 ML VIAL IVP SCH ×2 (08:09→17:47)
[2017-12-30] MEDS: Cyanocobalamin (B-12) 1,000 MCG TABLET PO SCH (08:09)
--- NOTE | 2017-12-30 08:58 | Nephrology Progress Note ---
Date of Encounter: 12/30/17 Time of Encounter: 08:25 - Assessment and Plan (1) DREW (acute kidney injury) Current Visit: Yes Status: Acute acute kidney injury superimposed on chronic kidney disease in the setting of paracentesis and intravascular volume depletion. Renal fct improving, creat 1.65. Patient baseline 1.25-1.45. Documented urine output 1475 cc. Event note appreciated from last emiliano at 1999, somnolence, narcan, elevated ammonia of 88 and increased Lactulose. I&O's. Avoid nephrotoxins. Will continue to monitor (2) Afib Current Visit: Yes Status: Chronic Qualifiers: Atrial fibrillation type: chronic Qualified Code(s): I48.2 - Chronic atrial fibrillation (3) Ascites Current Visit: Yes Status: Acute Qualifiers: Ascites type: other type Qualified Code(s): R18.8 - Other ascites (4) CAD (coronary artery disease) of artery bypass graft Current Visit: Yes Status: Chronic Qualifiers: [place] vs. transplanted heart: [place] heart Associated angina: without angina Qualified Code(s): I25.810 - Atherosclerosis of coronary artery bypass graft(s) without angina pectoris Subjective Interval history: Sitting up in chair, feeding self breakfast. Objective - Vital Signs Vital signs: Vital Signs Temp Pulse Resp BP Pulse Ox 12/30/17 07:37 98.1 F 85 18 103/62 93 12/30/17 04:40 18 98 12/30/17 04:18 98.9 F 105 18 107/65 94 12/30/17 00:00 98 12/29/17 23:53 98.7 F 89 18 128/81 95 12/29/17 22:27 14 94 12/29/17 20:00 96 12/29/17 19:00 98.9 F 100 16 135/83 96 12/29/17 17:30 18 98 12/29/17 15:29 97.4 F L 80 18 111/71 98 12/29/17 15:17 16 99 12/29/17 11:36 98.6 F 98 20 104/72 97 12/29/17 10:20 98.1 F 75 20 114/63 97 12/29/17 08:56 22 95 Intake and Output 12/29/17 12/30/17 12/30/17 23:59 07:59 15:59 Intake Total 0 / 0 40.9 / 40.9 Output Total 600 / 600 700 / 700 Balance -600 / -600 -659.1 / -659.1 Intake: IV Fluids 40.9 / 40.9 Heparin 25,000 UNIT/500 ML D5W 40.9 / 40.9 25,000 unit In 500 ml @ 14 UNIT /KG/HR 30.478 mls/hr IVC . [id number] LAZARO Rx#:[id number] Oral 0 / 0 0 / 0 Output: Urine 600 / 600 700 / 700 Other: # Voids 1 Weight 109.27 kg Blood Glucose* 99 116 Patient Weight 12/30/17 23:59 Weight 109.27 kg - General Appearance General appearance: Present: well-developed, well-nourished, appears started age , obese EENT: Present: mucous membranes moist Neck: Present: no JVD Respiratory: Present: clear Cardiology: Present: edema, regular rate, regular rhythm Additional Comments: periorbital edema, ascites, abdomen much firmer, buttocks down Gastrointestinal: Present: hypoactive bowel sounds, no tenderness Integumentary: Present: warm and dry Neurologic: Present: alert and oriented x3 - Lab 12/29/17 18:29 12/30/17 06:07 Most recent lab results Calcium 9.1 mg/dL (8.6-10.3) 12/30/17 06:07 Phosphorus 3.3 mg/dL (2.7-4.5) 12/24/17 11:09 Magnesium 1.8 mg/dL (1.6-2.6) 12/23/17 05:04 Urine Creatinine 94 mg/dL 12/24/17 10:59 Urine Sodium 29.7 mEq/L 12/23/17 15:55 - VTE Contraindication No Overlap Therapy: Admin of oral Factor Xa Inhibitor Consult Discharge Plan - Plan Referrals: [facility] [Outside] - 01/04/18 2:15 pm
[2017-12-30] MEDS: *HR* OxyCODONE Immed Rel 5 MG TABLET PO PRN ×2 (12:44→21:09)
[2017-12-30] MEDS ORDERED: *HR* Metformin 500 MG TABLET PO SCH (17:00)
--- NOTE | 2017-12-30 17:46 | Internal Med Progress Note ---
Date of Encounter: 12/30/17 Time of Encounter: 17:44 - Assessment and plan (1) Ascites Current Visit: Yes Status: Acute Assessment and plan: S/P therapeutic paracentesis. Ascites stable. Continue IV lasix 40 mg BID ( nephrology states OK due to stable Cr). Continue 2L fluid restriction and PRN lactulose. GI consulted; appreciate input. Scheduled for EGD on tomorrow. Will hold heparin and aspirin after midnight tonight. Qualifiers: Ascites type: other type Qualified Code(s): R18.8 - Other ascites (2) Hyperkalemia Current Visit: Yes Status: Resolved Assessment and plan: K=4.6. Resolved. Recheck BMP in AM. (3) CKD (chronic kidney disease) stage 3, GFR 30-59 ml/min Current Visit: Yes Status: Chronic Assessment and plan: Cr = 1.65. Nephrology consulted; appreciate input. Renal function stable. Continue decreased gabapentin dose. Recheck BMP in AM. (4) Afib Current Visit: Yes Status: Chronic Assessment and plan: Continue coreg and IV heparin. Eliquis held for EGD. Hold IV heparin after midnight tonight as per above. Qualifiers: Atrial fibrillation type: chronic Qualified Code(s): I48.2 - Chronic atrial fibrillation (5) COPD (chronic obstructive pulmonary disease) Current Visit: Yes Status: Chronic Assessment and plan: Stable. Continue scheduled duonebs Q6H and albuterol nebs Q4H PRN. Management of ascites as per above. Qualifiers: COPD type: chronic bronchitis Chronic bronchitis type: simple Qualified Code(s): J41.0 - Simple chronic bronchitis (6) Diabetes Current Visit: Yes Status: Chronic Assessment and plan: Blood glucose well-controlled. Patient states that he does not tolerate insulin. He is requesting home medications. He is ok with lantus, just not short-acting insulin. Will continue accuchecks and diabetic diet. Discontinue SSI. Start home levemir 10 units QHS, glipizide 10 mg BID with meals, and metformin 1000 mg BID with meals. Qualifiers: Diabetes mellitus type: type 2 Diabetes mellitus complication status: with kidney complications Diabetes mellitus complication detail: with chronic kidney disease Diabetes mellitus prison insulin use: without ferry terminal agent use Chronic kidney disease stage: stage 3 (moderate) Qualified Code(s): E11.22 - Type 2 diabetes mellitus with diabetic chronic kidney disease; N18.3 - Chronic kidney disease, stage 3 (moderate); N18.3 - Chronic kidney disease, stage 3 (moderate) (7) Liver cirrhosis Current Visit: Yes Status: Chronic Assessment and plan: GI consulted; appreciate input. EGD on Sunday as per above. Qualifiers: Hepatic cirrhosis type: other cirrhosis Qualified Code(s): K74.69 - Other cirrhosis of liver (8) CAD (coronary artery disease) of artery bypass graft Current Visit: Yes Status: Chronic Assessment and plan: Continue aspirin, beta francisca, and statin. Qualifiers: [place] vs. transplanted heart: [place] heart Associated angina: without angina Qualified Code(s): I25.810 - Atherosclerosis of coronary artery bypass graft(s) without angina pectoris - Time Spent With Patient less than 15 minutes - Subjective Interval history: Patient had no acute events overnight after interval worsening yesterday afternoon. He seems to be back to his normal mentation this AM. He had big BM this AM per nursing staff. He has no other complaints. - Constitutional Vitals: Temp Pulse Resp BP Pulse Ox 97.9 F 81 18 105/70 95 12/30/17 16:37 12/30/17 16:37 12/30/17 16:37 12/30/17 16:37 12/30/17 16:37 General appearance: Present: A&O X 3, no acute distress, obese, answers questions appropriately - Eye Eye exam: Present: EOMI, periorbital swelling, PERRL. Absent: conjunctival injection, periorbital tenderness, scleral icterus - Respiratory Respiratory exam: Present: CTAB. Absent: accessory muscle use, rales, rhonchi, wheezes Additional comments: Normal WOB - Cardiovascular Cardiovascular exam: Present: RRR, +S1, +S2. Absent: diastolic murmur, gallop, rubs, systolic murmur Additional comments: Moderate BUE and BLE edema - GI/Abdominal GI/Abdominal exam: Present: distended, firm, normal bowel sounds. Absent: hepatomegaly, mass, splenomegaly, tenderness Additional comments: Positive fluid wave - Psychiatric Psychiatric exam: Present: normal affect, normal mood. Absent: agitated, anxious - Skin Skin exam: Present: dry, intact, warm. Absent: cyanosis, rash Internal Medicine: Result - Labs CBC & Chem 7: 12/29/17 18:29 03/04/18 06:07 Labs: Short CBC 12/29/17 Range/Units 18:29 WBC 5.9 (4.3-11.1) K/mcL Hgb 8.7 L (12.9-16.9) g/dL Hct 27.5 L (37.5-50.1) % Plt Count 127 L (140-400) K/mcL Neutrophils # 3.3 (1.6-8.9) K/mcL BMP 12/29/17 12/30/17 18:29 06:07 Sodium 135 L 134 L Potassium 5.3 H 4.6 Chloride 104 104 Carbon Dioxide 22 L 24 BUN 74 H 72 H Creatinine 1.74 H 1.65 H Glucose 129 H 111 H Calcium 9.4 9.1 Liver Function 12/29/17 Range/Units 18:29 Total Bilirubin 1.2 H (0.3-1.0) mg/dL AST 29 (13-39) Units/L ALT 24 (7-52) Units/L Alkaline Phosphatase 144 H (34-104) Units/L Albumin 3.8 (3.5-5.7) g/dL - ABG Interpretation ABG results: PT/INR, D-dimer PT 17.2 Seconds (9.4-12.1) H 12/24/17 15:00 - Impressions Impressions Chest X-Ray 12/29/17 18:01 IMPRESSION: 1. Findings suggestive of pulmonary edema. Persistently enlarged cardiomediastinal silhouette. 2. No convincing evidence of sizable consolidative pneumonia. D/ : / 12/29/2017 20:15:23 Austin Mccoy MD / gracie Interpreting Provider: Austin Mccoy MD - VTE Contraindication No Overlap Therapy: Admin of oral Factor Xa Inhibitor Consult Discharge Plan - Plan Referrals: [facility] [Outside] - 01/04/18 2:15 pm
[2017-12-30] MEDS: *HR* GlipiZIDE 5 MG TABLET PO SCH (17:48)
[2017-12-30] MEDS: Insulin DETEMIR 100 UNIT/ML X5UNITS SQ SCH (21:09)
[2017-12-31] MEDS: Levalbuterol Neb 1.25 MG/3 ML IH SCH ×4 (04:16→21:55)
[2017-12-31] MEDS: *HR* GlipiZIDE 5 MG TABLET PO SCH ×2 (07:50→16:24)
[2017-12-31] MEDS: Furosemide 40 MG/4 ML VIAL IVP SCH ×2 (07:51→16:27)
[2017-12-31] MEDS: Cyanocobalamin (B-12) 1,000 MCG TABLET PO SCH (07:51)
[2017-12-31] MEDS: Cholecalciferol (D-3) 1,000 UNIT TABLET PO SCH (07:51)
[2017-12-31] MEDS: Lactulose Oral Soln 20 GM/30 ML UDC PO SCH ×4 (07:51→20:54)
[2017-12-31 08:10] LABS: Albumin 3.6 g/dL (3.5-5.7); Albumin/Globulin Ratio 1.2 (1.1-2.2); Bilirubin,Total 1.2 mg/dL (0.3-1.0); Calcium 9.4 mg/dL (8.6-10.3); Immature Granulocytes % 0.2 % (0-4); Potassium 4.4 mEq/L (3.5-5.1); Total Protein 6.6 g/dL (6.4-8.9)
[2017-12-31 08:11] LABS: Basophils # 0.1 K/mcL (0.0-0.2); Basophils % 0.8 %; Eosinophils # 0.2 K/mcL (0.0-0.6); Eosinophils % 2.8 %; Hematocrit 25.7 % (37.5-50.1); Hemoglobin 8.1 g/dL (12.9-16.9); Lymphocytes # 0.8 K/mcL (0.6-4.6); Lymphocytes % 13.1 %; Mean Corpuscular HGB Conc 31.5 g/dL (31.6-35.5); Mean Corpuscular Hemoglobin 28.2 pg (28.0-33.3); Mean Corpuscular Volume 89.5 fL (83.0-100.0); Mean Platelet Volume 11.7 fL (9.4-12.4); Monocytes % 16.4 %; Neutrophils # 4.3 K/mcL (1.6-8.9); Platelet Count 134 K/mcL (140-400); Red Blood Count 2.87 M/mcL (4.19-5.50); Red Cell Distribution Width 16.1 % (11.5-14.5); Segmented Neutrophils % 66.7 %
--- NOTE | 2017-12-31 09:07 | Nephrology Progress Note ---
Date of Encounter: 12/31/17 Time of Encounter: 09:05 - Assessment and Plan (1) DREW (acute kidney injury) Current Visit: Yes Status: Acute Patient has acute kidney injury superimposed on chronic kidney disease. The patient's renal function is improving. He still is hypervolemic. I am going to add metolazone to his diuretic regimen. (2) Ascites Current Visit: Yes Status: Acute Qualifiers: Ascites type: other type Qualified Code(s): R18.8 - Other ascites (3) CKD (chronic kidney disease) stage 3, GFR 30-59 ml/min Current Visit: Yes Status: Chronic Subjective Interval history: Patient is sitting on the edge of the bed. He is in no acute distress. Renal function continues to improve. Vital signs are stable. He still exhibits signs of volume overload as well as ascites. Objective - Vital Signs Vital signs: Vital Signs Temp Pulse Resp BP Pulse Ox 12/31/17 05:25 98.1 F 99 18 119/71 93 12/31/17 04:16 20 98 12/30/17 23:15 98.9 F 86 18 116/77 100 12/30/17 22:26 19 99 12/30/17 16:37 97.9 F 81 18 105/70 95 12/30/17 16:13 16 96 12/30/17 11:54 97.4 F L 92 18 113/69 93 12/30/17 10:32 18 95 Intake and Output 12/30/17 12/31/17 12/31/17 23:59 07:59 15:59 Intake Total 120 / 120 0 / 0 Output Total 900 / 900 550 / 550 300 / 300 Balance -780 / -780 -550 / -550 -300 / -300 Intake: Oral 120 / 120 0 / 0 Output: Urine 900 / 900 550 / 550 300 / 300 Other: Meal Dinner Percent of Meal Consumed 75% Weight 108.953 kg Blood Glucose* 205 95 Patient Weight 12/31/17 23:59 Weight 108.953 kg - General Appearance Exam: Patient is alert. He is in no acute distress. Lungs breath sounds. Heart irregular rate and rhythm. Abdomen is distended with ascites. There is 3+ lower extremity swelling. - Lab 12/31/17 07:36 12/31/17 07:36 Most recent lab results Calcium 9.4 mg/dL (8.6-10.3) 12/31/17 07:36 Phosphorus 3.3 mg/dL (2.7-4.5) 12/24/17 11:09 Magnesium 1.8 mg/dL (1.6-2.6) 12/23/17 05:04 Urine Creatinine 94 mg/dL 12/24/17 10:59 Urine Sodium 29.7 mEq/L 12/23/17 15:55 Urine Total Protein SEE NOTE mg/d (10-140) 12/24/17 17:15 - VTE Contraindication No Overlap Therapy: Admin of oral Factor Xa Inhibitor Consult Discharge Plan - Plan Referrals: [facility] [Outside] - 01/04/18 2:15 pm
[2017-12-31] MEDS ORDERED: *HR* Midazolam HCl 5 MG/5 ML VIAL IVP ONE (16:54)
[2017-12-31] MEDS ORDERED: *HR* FentaNYL (PF) 100 MCG/2 ML VIAL ONE (16:55)
[2017-12-31] MEDS ORDERED: Tetracaine/Benzocaine/Butamben 200MG/SPRAY (100SPY/BOT) MM ONE ×2 (17:38→17:55)
[2017-12-31] MEDS ORDERED: *HR* FentaNYL (PF) 100 MCG/2 ML VIAL IVP ONE (17:55)
[2017-12-31] MEDS ORDERED: Simethicone 40 MG/0.6 ML MLS IR ONE (17:55)
[2017-12-31] MEDS ORDERED: *HR* Midazolam HCl 2 MG/2 ML VIAL IVP ONE (17:55)
--- NOTE | 2017-12-31 17:56 | Pre-Sedation Evaluation ---
Pre-sedation evaluation - Pre-sedation checklist Date of procedure: 12/31/17 Recent Vitals: Last Vital Signs Temp 98.2 F 12/31/17 17:03 Pulse 102 12/31/17 17:46 Resp 14 12/31/17 17:46 BP 105/70 12/31/17 17:46 Pulse Ox 94 12/31/17 17:46 H&P (including ROS) documented in medical record: Yes Previous reaction to sedatives/anesthetics: No Dietary Status: NPO after Midnight Dentition: No loose teeth or bridges ASA Classification *see protocol: CLASS III-Severe systemic disease Plan of Care: Pt appropriate candidate for procedure/moderate/conscious sedation , Risks/benefits of procedure/sedation discussed w/ patient/family
--- NOTE | 2017-12-31 18:47 | Internal Med Progress Note ---
Date of Encounter: 12/31/17 Time of Encounter: 18:44 - Assessment and plan (1) Ascites Current Visit: Yes Status: Acute Assessment and plan: S/P therapeutic paracentesis. Ascites stable. Continue IV lasix 40 mg BID ( nephrology states OK due to stable Cr). Nephrology started metolazone 5 mg PO QD today. Continue 2L fluid restriction and PRN lactulose. GI consulted; appreciate input. S/P EGD today; results normal. Restart eliquis and aspirin. Plan for discharge home tomorrow with [facility]. Qualifiers: Ascites type: other type Qualified Code(s): R18.8 - Other ascites (2) Hyperkalemia Current Visit: Yes Status: Resolved Assessment and plan: Resolved. (3) CKD (chronic kidney disease) stage 3, GFR 30-59 ml/min Current Visit: Yes Status: Chronic Assessment and plan: Cr = 1.40. Nephrology consulted; appreciate input. Renal function stable. Continue decreased gabapentin dose. Recheck CMP in AM. (4) Afib Current Visit: Yes Status: Chronic Assessment and plan: Continue coreg. Restart eliquis today as per above. Qualifiers: Atrial fibrillation type: chronic Qualified Code(s): I48.2 - Chronic atrial fibrillation (5) COPD (chronic obstructive pulmonary disease) Current Visit: Yes Status: Chronic Assessment and plan: Stable. Continue scheduled duonebs Q6H and albuterol nebs Q4H PRN. Management of ascites as per above. Qualifiers: COPD type: chronic bronchitis Chronic bronchitis type: simple Qualified Code(s): J41.0 - Simple chronic bronchitis (6) Diabetes Current Visit: Yes Status: Chronic Assessment and plan: Blood glucose well-controlled. Continue accuchecks and diabetic diet. Patient refuses SSI. Continue home levemir 10 units QHS and glipizide 10 mg BID with meals. 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 S/P EGD today. Follow up with GI as outpatient. Qualifiers: Hepatic cirrhosis type: other cirrhosis Qualified Code(s): K74.69 - Other cirrhosis of liver (8) CAD (coronary artery disease) of artery bypass graft Current Visit: Yes Status: Chronic Assessment and plan: Continue aspirin, beta francisca, and statin. Qualifiers: [place] vs. transplanted heart: [place] heart Associated angina: without angina Qualified Code(s): I25.810 - Atherosclerosis of coronary artery bypass graft(s) without angina pectoris - Time Spent With Patient 25 - 35 minutes - Subjective Interval history: Patient had no acute events overnight. He is awake and sitting up in chair today. He denies any abdominal pain, nausea, vomiting, or SOB. He has no other complaints. - Constitutional Vitals: Temp Pulse Resp BP Pulse Ox 98.2 F 102 18 106/72 98 12/31/17 18:26 12/31/17 18:26 12/31/17 18:26 12/31/17 18:26 12/31/17 18:26 General appearance: Present: A&O X 3, no acute distress, obese, answers questions appropriately - Respiratory Respiratory exam: Present: CTAB. Absent: accessory muscle use, rales, rhonchi, wheezes Additional comments: Normal WOB - Cardiovascular Cardiovascular exam: Present: RRR, +S1, +S2. Absent: diastolic murmur, gallop, rubs, systolic murmur Additional comments: Moderate BUE and BLE edema - GI/Abdominal GI/Abdominal exam: Present: distended, firm, normal bowel sounds. Absent: hepatomegaly, mass, splenomegaly - Psychiatric Psychiatric exam: Present: normal affect, normal mood. Absent: anxious, depressed - Skin Skin exam: Present: dry, intact, warm. Absent: cyanosis, rash Internal Medicine: Result - Labs CBC & Chem 7: 12/31/17 07:36 12/31/17 07:36 Labs: Short CBC 12/31/17 Range/Units 07:36 WBC 6.4 (4.3-11.1) K/mcL Hgb 8.1 L (12.9-16.9) g/dL Hct 25.7 L (37.5-50.1) % Plt Count 134 L (140-400) K/mcL Neutrophils # 4.3 (1.6-8.9) K/mcL BMP 12/31/17 07:36 Sodium 135 L Potassium 4.4 Chloride 103 Carbon Dioxide 23 BUN 62 H Creatinine 1.40 H Glucose 96 Calcium 9.4 Liver Function 12/31/17 Range/Units 07:36 Total Bilirubin 1.2 H (0.3-1.0) mg/dL AST 22 (13-39) Units/L ALT 18 (7-52) Units/L Alkaline Phosphatase 139 H (34-104) Units/L Albumin 3.6 (3.5-5.7) g/dL - ABG Interpretation ABG results: PT/INR, D-dimer PT 17.2 Seconds (9.4-12.1) H 12/24/17 15:00 - VTE Contraindication No Overlap Therapy: Admin of oral Factor Xa Inhibitor Consult Discharge Plan - Plan Referrals: [facility] [Outside] - 01/04/18 2:15 pm
[2017-12-31] MEDS: Insulin DETEMIR 100 UNIT/ML X5UNITS SQ SCH (20:54)
[2017-12-31] MEDS: Apixaban 5 MG TABLET PO SCH (20:54)
[2017-12-31] MEDS: Aspirin Enteric Coated 81 MG Tablet PO SCH (20:56)
[2017-12-31] MEDS: *HR* OxyCODONE Immed Rel 5 MG TABLET PO PRN (21:02)
[2018-01-01] MEDS: Levalbuterol Neb 1.25 MG/3 ML IH SCH ×4 (04:15→22:18)
[2018-01-01] MEDS: *HR* OxyCODONE Immed Rel 5 MG TABLET PO PRN ×2 (05:45→11:43)
[2018-01-01 07:15] LABS: Alanine Aminotransferase 16 Units/L (7-52); Albumin 3.4 g/dL (3.5-5.7); Albumin/Globulin Ratio 1.1 (1.1-2.2); Alkaline Phosphatase 137 Units/L (34-104); Aspartate Amino Transferase 21 Units/L (13-39); BUN/Creatinine Ratio 46 (6-26); Bilirubin,Total 1.1 mg/dL (0.3-1.0); Blood Urea Nitrogen 54 mg/dL (8-23); Calcium 9.2 mg/dL (8.6-10.3); Carbon Dioxide 26 mEq/L (23-29); Chloride 104 mEq/L (98-107); Glucose 120 mg/dL (70-105); Osmolality,Calculated 300 (280-300); Potassium 4.1 mEq/L (3.5-5.1); Sodium 137 mEq/L (136-145); Total Protein 6.4 g/dL (6.4-8.9); eGFR For African Americans > 60 (> 60); eGFR For Non-African Americans > 60 (> 60)
[2018-01-01] MEDS: *HR* GlipiZIDE 5 MG TABLET PO SCH ×2 (07:25→16:47)
[2018-01-01] MEDS: Furosemide 40 MG/4 ML VIAL IVP SCH ×2 (07:25→16:46)
[2018-01-01] MEDS: Aspirin Enteric Coated 81 MG Tablet PO SCH (07:25)
[2018-01-01] MEDS: Cholecalciferol (D-3) 1,000 UNIT TABLET PO SCH (07:26)
[2018-01-01] MEDS: Apixaban 5 MG TABLET PO SCH ×2 (07:26→20:14)
[2018-01-01] MEDS: Lactulose Oral Soln 20 GM/30 ML UDC PO SCH ×4 (07:26→20:14)
[2018-01-01] MEDS: Cyanocobalamin (B-12) 1,000 MCG TABLET PO SCH (07:26)
[2018-01-01] MEDS: metOLazone 5 MG TABLET PO SCH (07:27)
--- NOTE | 2018-01-01 08:08 | Nephrology Progress Note ---
Date of Encounter: 01/01/18 Time of Encounter: 08:07 - Assessment and Plan (1) DREW (acute kidney injury) Current Visit: Yes Status: Acute The patient's acute kidney injury has resolved. He is tolerating diuretics without any difficulty. He will need to continue to undergo diuresis. Currently he remains quite volume overloaded. (2) Ascites Current Visit: Yes Status: Acute Qualifiers: Ascites type: other type Qualified Code(s): R18.8 - Other ascites (3) CKD (chronic kidney disease) stage 3, GFR 30-59 ml/min Current Visit: Yes Status: Chronic Subjective Interval history: Patient is alert and oriented. He denies any complaints. He appears to have a more clear mental status today than previously. Renal function continues to improve. Urine output is 2.1 L. He was started on metolazone in addition to the Lasix yesterday. Objective - Vital Signs Vital signs: Vital Signs Temp Pulse Resp BP Pulse Ox 01/01/18 05:15 97.9 F 96 15 144/87 95 01/01/18 04:15 19 96 12/31/17 21:55 20 94 12/31/17 20:26 97.5 F L 100 15 119/68 93 12/31/17 20:15 94 12/31/17 18:26 98.2 F 102 18 106/72 98 12/31/17 17:55 97.8 F 92 18 106/74 100 12/31/17 17:46 102 14 105/70 94 12/31/17 17:43 91 14 108/71 97 12/31/17 17:03 98.2 F 102 16 115/80 97 12/31/17 16:18 16 98 12/31/17 15:16 98.2 F 94 15 119/72 98 12/31/17 10:56 16 95 12/31/17 10:35 98.4 F 98 16 128/74 94 Intake and Output 12/31/17 01/01/18 01/01/18 23:59 07:59 15:59 Intake Total 0 / 0 100 / 100 Output Total 250 / 250 1000 / 1000 Balance -250 / -250 -900 / -900 Intake: Oral 0 / 0 100 / 100 Output: Urine 250 / 250 1000 / 1000 Other: Blood Glucose* 136 - General Appearance Exam: Patient is alert and oriented. He is in no acute distress. Lungsbreath sounds otherwise clear. Heart regular rate and rhythm. Abdomen is distended with ascites. He has 3+ lower extremity swelling. - Lab 12/31/17 07:36 01/01/18 06:31 Most recent lab results Calcium 9.2 mg/dL (8.6-10.3) 01/01/18 06:31 Phosphorus 3.3 mg/dL (2.7-4.5) 12/24/17 11:09 Magnesium 1.8 mg/dL (1.6-2.6) 12/23/17 05:04 Urine Creatinine 94 mg/dL 12/24/17 10:59 Urine Sodium 29.7 mEq/L 12/23/17 15:55 Urine Total Protein SEE NOTE mg/d (10-140) 12/24/17 17:15 - VTE Contraindication No Overlap Therapy: Admin of oral Factor Xa Inhibitor Consult Discharge Plan - Plan Referrals: [facility] [Outside] - 01/04/18 2:15 pm
--- NOTE | 2018-01-01 12:54 | Internal Med Progress Note ---
Date of Encounter: 01/01/18 Time of Encounter: 12:52 - Assessment and plan (1) Afib Current Visit: Yes Status: Chronic Assessment and plan: HR is controlled, continue eliquis, HB is stable Qualifiers: Atrial fibrillation type: chronic Qualified Code(s): I48.2 - Chronic atrial fibrillation (2) Ascites Current Visit: Yes Status: Acute Assessment and plan: S/P therapeutic paracentesis. Ascites stable. Continue IV lasix 40 mg BID and metolazone 5 mg PO QD today. I/O -2.9L Continue 2L fluid restriction and PRN lactulose. GI consulted; appreciate input. S/P EGD 12/31/17, results normal. Per renal, patient is still hypervolemic and they recommend more diuresis, agree with same Continue to monitor Qualifiers: Ascites type: other type Qualified Code(s): R18.8 - Other ascites (3) CAD (coronary artery disease) of artery bypass graft Current Visit: Yes Status: Chronic Assessment and plan: Continue aspirin, beta francisca, and statin. Qualifiers: [place] vs. transplanted heart: [place] heart Associated angina: without angina Qualified Code(s): I25.810 - Atherosclerosis of coronary artery bypass graft(s) without angina pectoris (4) CKD (chronic kidney disease) stage 3, GFR 30-59 ml/min Current Visit: Yes Status: Chronic Assessment and plan: Renal function stable. Continue home meds (5) Diabetes Current Visit: Yes Status: Chronic Assessment and plan: Blood glucose well-controlled. Continue accuchecks and diabetic diet. Patient refuses SSI. Continue home levemir 10 units QHS and glipizide 10 mg BID with meals. Qualifiers: Diabetes mellitus type: type 2 Diabetes mellitus complication status: with kidney complications Diabetes mellitus complication detail: with chronic kidney disease Diabetes mellitus group home insulin use: without group home use Chronic kidney disease stage: stage 3 (moderate) Qualified Code(s): E11.22 - Type 2 diabetes mellitus with diabetic chronic kidney disease; N18.3 - Chronic kidney disease, stage 3 (moderate); N18.3 - Chronic kidney disease, stage 3 (moderate) (6) DVT prophylaxis Current Visit: Yes Status: Acute Assessment and plan: on eliquis (7) Liver cirrhosis Current Visit: Yes Status: Chronic Assessment and plan: GI consulted; appreciate input. S/P EGD 12/31. Follow up with GI as outpatient. Qualifiers: Hepatic cirrhosis type: other cirrhosis Qualified Code(s): K74.69 - Other cirrhosis of liver - Subjective Interval history: Seen and evaluated at bedside NO new complains Still has generalized edema and ascites Renal function is markedly improved - Constitutional Vitals: Temp Pulse Resp BP Pulse Ox 97.7 F 87 18 126/75 97 01/01/18 11:58 01/01/18 11:58 01/01/18 11:58 01/01/18 11:58 01/01/18 11:58 General appearance: Present: A&O X 3, no acute distress, obese, answers questions appropriately - Head Head exam: Present: atraumatic, normocephalic - Eye Eye exam: Present: PERRL, conjuntiva pink, sclera anicteric Pupils: Present: PERRL - Neck Neck exam general surgery: Present: supple, trachea midline. Absent: lymphadenopathy - Respiratory Respiratory exam: Present: CTAB. Absent: accessory muscle use, rales, rhonchi, wheezes - Cardiovascular Cardiovascular exam: Present: RRR, +S1, +S2. Absent: diastolic murmur, gallop, rubs, systolic murmur - GI/Abdominal GI/Abdominal exam: Present: distended, normal bowel sounds, soft, no peritoneal signs. Absent: tenderness - Extremities Exam Extremities exam: Present: pedal edema - Neurological Exam Neurological exam: Present: alert, CN II-XII intact, oriented X3, no focal deficits. Absent: pronater drift, facial droop, speech deficit - Skin Skin exam: Present: dry, intact Internal Medicine: Result - Labs CBC & Chem 7: 12/31/17 07:36 01/01/18 06:31 Labs: BMP 01/01/18 06:31 Sodium 137 Potassium 4.1 Chloride 104 Carbon Dioxide 26 BUN 54 H Creatinine 1.18 Glucose 120 H Calcium 9.2 Liver Function 01/01/18 Range/Units 06:31 Total Bilirubin 1.1 H (0.3-1.0) mg/dL AST 21 (13-39) Units/L ALT 16 (7-52) Units/L Alkaline Phosphatase 137 H (34-104) Units/L Albumin 3.4 L (3.5-5.7) g/dL - ABG Interpretation ABG results: PT/INR, D-dimer PT 17.2 Seconds (9.4-12.1) H 12/24/17 15:00 - VTE Contraindication No Overlap Therapy: Admin of oral Factor Xa Inhibitor Consult Discharge Plan - Plan Referrals: [facility] [Outside] - 01/04/18 2:15 pm
--- NOTE | 2018-01-01 19:58 | Electrocardiograph Report ---
[address] [place], [place] [address] Test Date: 2017-12-29 Pat Name: Hadley Jones Department: 115 Room: 3A31 Gender: M Manager Content: [id number] : 1940 Requested By: Oscar Sapp Order Number: [id number] Reading MD: Ama Polo Measurements Intervals [place] Rate: 104 P: CT: 0 QRS: 135 QRSD: 97 T: -30 QT: 305 QTc: 366 Interpretive Statements ATRIAL FIBRILLATION WITH RAPID VENTRICULAR RESPONSE MARKED RIGHT AXIS DEVIATION LOW QRS VOLTAGE POSSIBLE ANTERIOR MYOCARDIAL INFARCTION, PROBABLY OLD Electronically Signed On 01-01-2018 19:57:00 EST by Ama Polo
--- NOTE | 2018-01-01 20:04 | Electrocardiograph Report ---
[place] [id number] Test Date: 2017-12-29 Pat Name: Hadley Jones Department: 115 Room: 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
[2018-01-01] MEDS: Insulin DETEMIR 100 UNIT/ML X5UNITS SQ SCH (20:14)
[2018-01-01] MEDS: Gabapentin 300 MG CAPSULE PO SCH (20:15)
[2018-01-02] MEDS: *HR* OxyCODONE Immed Rel 5 MG TABLET PO PRN ×2 (02:53→15:15)
[2018-01-02] MEDS: Levalbuterol Neb 1.25 MG/3 ML IH SCH ×4 (03:31→21:59)
[2018-01-02 05:49] LABS: Alanine Aminotransferase 17 Units/L (7-52); Albumin 3.5 g/dL (3.5-5.7); Albumin/Globulin Ratio 1.2 (1.1-2.2); Alkaline Phosphatase 151 Units/L (34-104); Aspartate Amino Transferase 23 Units/L (13-39); BUN/Creatinine Ratio 41 (6-26); Bilirubin,Total 0.9 mg/dL (0.3-1.0); Blood Urea Nitrogen 50 mg/dL (8-23); Calcium 9.2 mg/dL (8.6-10.3); Carbon Dioxide 25 mEq/L (23-29); Chloride 103 mEq/L (98-107); Glucose 66 mg/dL (70-105); Osmolality,Calculated 296 (280-300); Potassium 3.9 mEq/L (3.5-5.1); Sodium 137 mEq/L (136-145); Total Protein 6.5 g/dL (6.4-8.9); eGFR For African Americans > 60 (> 60); eGFR For Non-African Americans 57 (> 60)
[2018-01-02] MEDS: Furosemide 40 MG/4 ML VIAL IVP SCH ×2 (09:36→16:53)
[2018-01-02] MEDS: Apixaban 5 MG TABLET PO SCH ×2 (09:36→22:12)
[2018-01-02] MEDS: *HR* GlipiZIDE 5 MG TABLET PO SCH (09:36)
[2018-01-02] MEDS: Aspirin Enteric Coated 81 MG Tablet PO SCH (09:36)
[2018-01-02] MEDS: Cholecalciferol (D-3) 1,000 UNIT TABLET PO SCH (09:37)
[2018-01-02] MEDS: Lactulose Oral Soln 20 GM/30 ML UDC PO SCH ×4 (09:37→22:13)
[2018-01-02] MEDS: Gabapentin 300 MG CAPSULE PO SCH ×2 (09:37→22:12)
[2018-01-02] MEDS: metOLazone 5 MG TABLET PO SCH (09:37)
[2018-01-02] MEDS: Cyanocobalamin (B-12) 1,000 MCG TABLET PO SCH (09:37)
--- NOTE | 2018-01-02 10:04 | Internal Med Progress Note ---
Date of Encounter: 01/02/18 Time of Encounter: 10:03 - Assessment and plan (1) Afib Current Visit: Yes Status: Chronic Assessment and plan: HR is controlled, continue eliquis, HB is stable Qualifiers: Atrial fibrillation type: chronic Qualified Code(s): I48.2 - Chronic atrial fibrillation (2) Ascites Current Visit: Yes Status: Acute Assessment and plan: S/P therapeutic paracentesis. Ascites stable. Continue IV lasix 40 mg BID and metolazone 5 mg PO QD today. I/O -4.3L Continue 2L fluid restriction and PRN lactulose. GI consulted; appreciate input. S/P EGD 12/31/17, results normal. Per renal, patient is still hypervolemic and they recommend more diuresis, agree with same 01/02/2018 another parecetensis done at bedside, 5.5 L removed Patient will be given 25g of albumin Continue to monitor Qualifiers: Ascites type: other type Qualified Code(s): R18.8 - Other ascites (3) CAD (coronary artery disease) of artery bypass graft Current Visit: Yes Status: Chronic Assessment and plan: Continue aspirin, beta francisca, and statin. Qualifiers: [place] vs. transplanted heart: [place] heart Associated angina: without angina Qualified Code(s): I25.810 - Atherosclerosis of coronary artery bypass graft(s) without angina pectoris (4) CKD (chronic kidney disease) stage 3, GFR 30-59 ml/min Current Visit: Yes Status: Chronic Assessment and plan: Renal function stable. Continue home meds (5) Diabetes Current Visit: Yes Status: Chronic Assessment and plan: Blood glucose well-controlled. Continue accuchecks and diabetic diet. Patient refuses SSI. Continue home levemir 10 units QHS and glipizide 10 mg BID with meals. Qualifiers: Diabetes mellitus type: type 2 Diabetes mellitus complication status: with kidney complications Diabetes mellitus complication detail: with chronic kidney disease Diabetes mellitus custodial insulin use: without long distance operator use Chronic kidney disease stage: stage 3 (moderate) Qualified Code(s): E11.22 - Type 2 diabetes mellitus with diabetic chronic kidney disease; N18.3 - Chronic kidney disease, stage 3 (moderate); N18.3 - Chronic kidney disease, stage 3 (moderate) (6) DVT prophylaxis Current Visit: Yes Status: Acute Assessment and plan: on eliquis (7) Liver cirrhosis Current Visit: Yes Status: Chronic Assessment and plan: GI consulted; appreciate input. S/P EGD 12/31. Follow up with GI as outpatient. Qualifiers: Hepatic cirrhosis type: other cirrhosis Qualified Code(s): K74.69 - Other cirrhosis of liver - Subjective Interval history: Seen and evaluated at bedside NO new complains Still has generalized edema and ascites IR at the [facility] for therapeutic par[place] Renal function continues to improved I/O -4.3 L - Constitutional Vitals: Temp Pulse Resp BP Pulse Ox 99.4 F 98 15 116/79 92 01/02/18 06:35 01/02/18 06:35 01/02/18 06:35 01/02/18 06:35 01/02/18 06:35 General appearance: Present: A&O X 3, no acute distress, obese, answers questions appropriately - Head Head exam: Present: atraumatic, normocephalic - Eye Eye exam: Present: PERRL, conjuntiva pink, sclera anicteric Pupils: Present: PERRL - Neck Neck exam general surgery: Present: supple, trachea midline. Absent: lymphadenopathy - Respiratory Respiratory exam: Present: CTAB. Absent: accessory muscle use, rales, rhonchi, wheezes - Cardiovascular Cardiovascular exam: Present: RRR, +S1, +S2. Absent: diastolic murmur, gallop, rubs, systolic murmur - GI/Abdominal GI/Abdominal exam: Present: distended, normal bowel sounds, no peritoneal signs. Absent: tenderness - Extremities Exam Extremities exam: Present: pedal edema, warm, radial pulses palpable and symmetrical. Absent: calf tenderness, cyanotic - Neurological Exam Neurological exam: Present: alert, CN II-XII intact, oriented X3, no focal deficits. Absent: pronater drift, facial droop, speech deficit - Skin Skin exam: Present: dry, intact Internal Medicine: Result - Labs CBC & Chem 7: 12/31/17 07:36 01/02/18 05:04 Labs: BMP 01/02/18 05:04 Sodium 137 Potassium 3.9 Chloride 103 Carbon Dioxide 25 BUN 50 H Creatinine 1.23 Glucose 66 L Calcium 9.2 Liver Function 01/02/18 Range/Units 05:04 Total Bilirubin 0.9 (0.3-1.0) mg/dL AST 23 (13-39) Units/L ALT 17 (7-52) Units/L Alkaline Phosphatase 151 H (34-104) Units/L Albumin 3.5 (3.5-5.7) g/dL - ABG Interpretation ABG results: PT/INR, D-dimer PT 17.2 Seconds (9.4-12.1) H 12/24/17 15:00 - VTE Contraindication No Overlap Therapy: Admin of oral Factor Xa Inhibitor Consult Discharge Plan - Plan Referrals: [facility] [Outside] - 01/14/18 1:15 pm
--- NOTE | 2018-01-02 10:33 | IR Procedure Note ---
Date of procedure: 01/02/18 Consent Obtained: Written consent Timeout: Correct patient and procedure verified, Time out performed, Skin prep completed Local anesthetic: Lidocaine 1% Indications: Ascites Procedure Performed: Paracentesis Was there an medical office receptionist assistant present: Yes Certified Peer Specialist: Jorge A Modi Results/Findings: US guided paracentesis Estimated blood loss (cc): 0 Post Procedure Treatment Plan: Monitor on floor Specimen: None
[2018-01-02] MEDS ORDERED: Albumin 25% 25gram/100mL 25 GM/100 ML IV.SOLN IVPB ONE (13:02)
[2018-01-02] MEDS: Insulin DETEMIR 100 UNIT/ML X5UNITS SQ SCH (22:13)
[2018-01-03] MEDS: *HR* OxyCODONE Immed Rel 5 MG TABLET PO PRN (01:49)
[2018-01-03] MEDS: Levalbuterol Neb 1.25 MG/3 ML IH SCH ×2 (03:43→10:29)
[2018-01-03 04:50] LABS: Basophils # 0.1 K/mcL (0.0-0.2); Basophils % 0.9 %; Eosinophils # 0.2 K/mcL (0.0-0.6); Eosinophils % 4.1 %; Hematocrit 26.2 % (37.5-50.1); Hemoglobin 8.4 g/dL (12.9-16.9); Immature Granulocytes % 0.2 % (0-4); Lymphocytes # 0.7 K/mcL (0.6-4.6); Lymphocytes % 11.9 %; Mean Corpuscular HGB Conc 32.1 g/dL (31.6-35.5); Mean Corpuscular Hemoglobin 28.4 pg (28.0-33.3); Mean Corpuscular Volume 88.5 fL (83.0-100.0); Mean Platelet Volume 10.5 fL (9.4-12.4); Monocytes # 0.8 K/mcL (0.0-1.3); Monocytes % 13.6 %; Neutrophils # 4.1 K/mcL (1.6-8.9); Platelet Count 138 K/mcL (140-400); Red Blood Count 2.96 M/mcL (4.19-5.50); Red Cell Distribution Width 16.6 % (11.5-14.5); Segmented Neutrophils % 69.3 %
[2018-01-03 05:05] VITALS: BP 144/79
[2018-01-03 05:13] LABS: BUN/Creatinine Ratio 38 (6-26); Blood Urea Nitrogen 44 mg/dL (8-23); Calcium 9.1 mg/dL (8.6-10.3); Carbon Dioxide 27 mEq/L (23-29); Chloride 102 mEq/L (98-107); Glucose 123 mg/dL (70-105); Osmolality,Calculated 295 (280-300); Potassium 3.8 mEq/L (3.5-5.1); Sodium 136 mEq/L (136-145); eGFR For African Americans > 60 (> 60); eGFR For Non-African Americans > 60 (> 60)
--- NOTE | 2018-01-03 09:40 | Nephrology Progress Note ---
Date of Encounter: 01/03/18 Time of Encounter: 09:15 - Assessment and Plan (1) DREW (acute kidney injury) Current Visit: Yes Status: Acute acute kidney injury superimposed on chronic kidney disease in the setting of paracentesis and intravascular volume depletion. Renal fct improving, creat 1.16. Stable on two diuretics. Patient baseline 1.25-1.45. Documented urine output 2450 cc. I&O's. Avoid nephrotoxins. Will continue to monitor (2) Afib Current Visit: Yes Status: Chronic Qualifiers: Atrial fibrillation type: chronic Qualified Code(s): I48.2 - Chronic atrial fibrillation (3) Ascites Current Visit: Yes Status: Acute Qualifiers: Ascites type: other type Qualified Code(s): R18.8 - Other ascites (4) CAD (coronary artery disease) of artery bypass graft Current Visit: Yes Status: Chronic Qualifiers: [place] vs. transplanted heart: [place] heart Associated angina: without angina Qualified Code(s): I25.810 - Atherosclerosis of coronary artery bypass graft(s) without angina pectoris Subjective Interval history: Sitting up in chair, ate breakfast. States thinks going home today. S/P paracentesis yesterday for 5.5 liters. States breathing easier, feels better. Objective - Vital Signs Vital signs: Vital Signs Temp Pulse Resp BP Pulse Ox 01/03/18 05:00 98.4 F 73 14 144/79 96 01/03/18 03:43 18 97 01/03/18 00:10 97.6 F 88 14 156/88 98 01/02/18 21:59 18 100 01/02/18 21:39 97.8 F 90 15 152/86 96 01/02/18 20:30 98 01/02/18 16:22 97.6 F 89 15 157/90 96 01/02/18 16:03 16 92 01/02/18 12:48 97.3 F L 81 15 135/79 98 01/02/18 10:39 18 96 Intake and Output 01/02/18 01/03/18 01/03/18 23:59 07:59 15:59 Intake Total 720 / 720 240 / 240 480 / 480 Output Total 1250 / 1250 850 / 850 300 / 300 Balance -530 / -530 -610 / -610 180 / 180 Intake: Oral 720 / 720 240 / 240 480 / 480 Output: Urine 1250 / 1250 850 / 850 300 / 300 Other: Meal Dinner Breakfast Percent of Meal Consumed 100% 100% Stool Size Large Stool Consistency soft formed Stool Color Brown # Voids 1 # Bowel Movements 1 Blood Glucose* 147 - General Appearance General appearance: Present: well-developed, well-nourished, appears started age EENT: Present: mucous membranes moist Neck: Present: no JVD Respiratory: Present: clear Cardiology: Present: regular rate, regular rhythm Additional Comments: 1-2+ LE Gastrointestinal: Present: normoactive bowel sounds, no tenderness, distended Integumentary: Present: warm and dry Neurologic: Present: alert and oriented x3 - Lab 01/03/18 04:33 01/03/18 04:33 Most recent lab results Calcium 9.1 mg/dL (8.6-10.3) 01/03/18 04:33 Phosphorus 3.3 mg/dL (2.7-4.5) 12/24/17 11:09 Magnesium 1.8 mg/dL (1.6-2.6) 12/23/17 05:04 Urine Creatinine 94 mg/dL 12/24/17 10:59 Urine Sodium 29.7 mEq/L 12/23/17 15:55 Urine Total Protein SEE NOTE mg/d (10-140) 12/24/17 17:15 - VTE Documentation of Mechanical Device: Intermittent pneumatic compression device Contraindication No Overlap Therapy: Admin of oral Factor Xa Inhibitor Consult Discharge Plan - Plan Referrals: [facility] [Outside] - 01/14/18 1:15 pm
[2018-01-03] MEDS: Cholecalciferol (D-3) 1,000 UNIT TABLET PO SCH (09:45)
[2018-01-03] MEDS: Aspirin Enteric Coated 81 MG Tablet PO SCH (09:45)
[2018-01-03] MEDS: metOLazone 5 MG TABLET PO SCH (09:45)
[2018-01-03] MEDS: Gabapentin 300 MG CAPSULE PO SCH (09:45)
[2018-01-03] MEDS: Lactulose Oral Soln 20 GM/30 ML UDC PO SCH ×2 (09:45→13:07)
[2018-01-03] MEDS: Cyanocobalamin (B-12) 1,000 MCG TABLET PO SCH (09:45)
[2018-01-03] MEDS: Apixaban 5 MG TABLET PO SCH (09:46)
[2018-01-03] MEDS: Furosemide 40 MG/4 ML VIAL IVP SCH (09:46)
--- NOTE | 2018-01-03 11:25 | Physician Discharge Referral ---
Home Health/Hosp Referral Info Transfer to: Home Health Attending Provider: Jean-Pierre moon Provider in Charge Post Discharge: PCP - Diagnosis (1) Afib Priority: Secondary Status: Chronic (2) Ascites Priority: Primary Status: Acute (3) CAD (coronary artery disease) of artery bypass graft Priority: Secondary Status: Chronic (4) CKD (chronic kidney disease) stage 3, GFR 30-59 ml/min Priority: Secondary Status: Chronic (5) Diabetes Priority: Secondary Status: Chronic (6) DVT prophylaxis Priority: Primary Status: Acute (7) Liver cirrhosis Priority: Primary Status: Chronic - Respiratory Orders Smoking Cessation: Smoking cessation has been advised. For more information, call the [place] Tobacco Quit Line at 7-958-KLQN-NOW. - Diet/Nutrition Diet/Nutrition Orders: Cardiac, No Concentrated Sweets - Activity Activity Orders: Up ad mikey - Services Needed Following services are medically necessary services: Nursing, Home Health Aide, Physical Therapy, Occupational Therapy - Transfer Medications Prescriptions: Carvedilol [Coreg] 3.125 mg PO BIDWM #60 tablet Furosemide [Lasix] 40 mg PO BID #60 tablet Gabapentin [Neurontin] 600 mg PO BID #60 capsule Lactulose 20 gm PO QID PRN #300 ml PRN Reason: Constipation Home Medications: Apixaban [Eliquis] 5 mg PO BID 08/05/17 [History] Aspirin [Lo-Dose Aspirin EC] 81 mg PO DAILY 08/05/17 [History] Atorvastatin [Lipitor] 40 mg PO HS 08/05/17 [History] Cholecalciferol (Vitamin D3) [Vitamin D3] 800 unit PO DAILY 08/05/17 [History] Cyanocobalamin (B-12) [Vitamin B12] 1,000 mcg PO DAILY 08/05/17 [History] HYDROcodone/Acet 5/325 mg [[place] 5-325 mg] 1 tab PO TID PRN 08/05/17 [History] Ipratropium/Albuterol Sulfate [Combivent Respimat Inhal [place]] 1 puff IH TID PRN 08/05/17 [History] Lisinopril [Zestril] 15 mg PO DAILY 08/05/17 [History] Metformin HCl [Glucophage] 1,000 mg PO BID 08/05/17 [History] Omeprazole [PriLOSEC] 40 mg PO DAILY 08/05/17 [History] Potassium Chloride [Klor-Con 10] 10 meq PO DAILY 08/05/17 [History] Sennosides/Docusate Sodium [Senna-Docusate Sodium Tablet] 1 tab PO BID 08/05/17 [History] Eucerin Creme 1 appl TP DAILY 12/20/17 [History] GuaiFENesin/Dextromethorphan [Tussin Dm Syrup] 10 ml PO BID PRN 12/20/17 [ History] Insulin Glargine [Lantus] 10 unit SQ HS 12/20/17 [History] Lidocaine Patch [Lidoderm 5% patch] 3 each TP DAILY 12/20/17 [History] Nitroglycerin [Nitrostat] 0.4 mg SL Q5M PRN 12/20/17 [History] Carvedilol [Coreg] 3.125 mg PO BIDWM #60 tablet 01/03/18 [Rx] Furosemide [Lasix] 40 mg PO BID #60 tablet 01/03/18 [Rx] Gabapentin [Neurontin] 600 mg PO BID #60 capsule 01/03/18 [Rx] Lactulose 20 gm PO QID PRN #300 ml 01/03/18 [Rx] Allergies/Adverse Reactions: 3 Allergy/AdvReac Type Severity Reaction Status Date / Time ibuprofen [From Motrin] AdvReac See Verified 12/20/17 19:35 Comments indomethacin [From Indocin] AdvReac See Verified 12/20/17 19:35 Comments naproxen AdvReac See Verified 12/20/17 19:35 Comments Certification: Further, I certify that my clinical findings support that this patient is homebound (i.e. absences from home require considerable and taxing effort and are for medical reasons or [employer] services or infrequently or short duration when for other reasons) because: Homebound Reason: Patient requires assistance of a person or device to safely leave home Attestation: My signature below is to certify that this patient is under my care and that I, or nurse practitioner, or a physician's surgeon's assistant working with me, has a face-to -face encounter with this patient.
--- NOTE | 2018-01-03 11:25 | Discharge Summary ---
- NOTES TO OUTPATIENT PROVIDER Notes to Outpatient Provider: Metoprolol has been discontinued. Coreg was started due to [place] hypertension. The patient had multiple episodes of hypoglycemia, therefore the site has been discontinued. His last A1c was 5.5. Lasix 40 mg twice a day has been admitted to the patient's home regimen due to ascites and decompensated liver cirrhosis. Orders not resulted at time of discharge: Pending orders 01/02/18 20:20 C diff [C.difficile Toxin PCR (>=2yo)] [MOLMIC] Stat Date of Encounter: 01/03/18 Time of Encounter: 11:25 - Discharge Diagnosis (1) Afib Priority: Secondary Status: Chronic Comments: Patient heart rate is controlled he has been under decrease, hemoglobin has been stable, continue the same at home. Qualifiers: Atrial fibrillation type: chronic Qualified Code(s): I48.2 - Chronic atrial fibrillation (2) Ascites Priority: Primary Status: Acute Comments: Patient is a 73 secondary to decompensated liver cirrhosis, no evidence of spontaneous bacterial peritonitis throughout his hospital stay. Patient received therapeutic paracentesis twice during his hospital stay, 6 L and 5.4 L were removed respectively. He received albumin. He has also had a negative fluid balance while being on Lasix and metolazone. He was discharged on 40 mg of Lasix twice a day. Primary care physician may add spironolactone if patient's renal function and blood pressure are normal. Qualifiers: Ascites type: other type Qualified Code(s): R18.8 - Other ascites (3) CAD (coronary artery disease) of artery bypass graft Priority: Secondary Status: Chronic Comments: Patient had a chest pain. Continue aspirin, Coreg and statin Atrovent. Qualifiers: [place] vs. transplanted heart: [place] heart Associated angina: without angina Qualified Code(s): I25.810 - Atherosclerosis of coronary artery bypass graft(s) without angina pectoris (4) CKD (chronic kidney disease) stage 3, GFR 30-59 ml/min Priority: Secondary Status: Chronic Comments: His renal function has improved remarkably from admitting values despite diuresis. Patient is discharged home on Lasix twice a day. (5) Diabetes Priority: Secondary Status: Chronic Comments: Patient on glipizide, Lantus and metformin at home. Patient developed some hypoglycemic episodes inpatient. We have discontinued glipizide on his home meds medications. Continue with insulin. Follow up with primary care physician. Qualifiers: Diabetes mellitus type: type 2 Diabetes mellitus complication status: with kidney complications Diabetes mellitus complication detail: with chronic kidney disease Diabetes mellitus alf insulin use: without alf use Chronic kidney disease stage: stage 3 (moderate) Qualified Code(s): E11.22 - Type 2 diabetes mellitus with diabetic chronic kidney disease; N18.3 - Chronic kidney disease, stage 3 (moderate); N18.3 - Chronic kidney disease, stage 3 (moderate) (6) DVT prophylaxis Priority: Secondary Status: Acute (7) Liver cirrhosis Priority: Secondary Status: Chronic Comments: Patient with decompensated liver cirrhosis with ascites. Gastroenterology was consulted during the patient's stay, the patient got an EGD done 12/31/17 which did not show any viruses. The patient needs routine annual surveillance EGD. Lactulose 20mg q8h prn for 2 BM daily, patient educated Qualifiers: Hepatic cirrhosis type: other cirrhosis Qualified Code(s): K74.69 - Other cirrhosis of liver (8) DREW (acute kidney injury) Priority: Primary Status: Acute Comments: DREW on CKD has resolved, renal function is back to baseline. . Hospital course: Mr. Jones is a 77 year old male with Afib, DM, Liver cirrhosis, CKD, He was admitted following complains of abdominal pain from ascites, he also has medical history of aneurysm of infrarenal abdominal aorta that has been stable. Patient was managed on managed with gastroenterology and nephrology due to development of acute on chronic kidney injury during his hospital stay. He has received therapeutic paracentesis twice and he has been stable. Seen and evaluated at the bedside this morning denies new complaints medically stable to be discharged from. Patient was educated about medication changes which include addition of Lasix for his medications, discontinuation of metoprolol and started on Coreg, discontinuation of glipizide. Follow up with primary care physician. For details of each diagnoses is as documented in each diagnosis. Discharge discussed with: patient, family, nurse, social work, case management - Time Spent with Patient Total time spent providing and/or coordinating discharge services: Greater than 30 minutes - Discharge Medications Prescriptions: Carvedilol [Coreg] 3.125 mg PO BIDWM #60 tablet Furosemide [Lasix] 40 mg PO BID #60 tablet Gabapentin [Neurontin] 600 mg PO BID #60 capsule Lactulose 20 gm PO QID PRN #300 ml PRN Reason: Constipation Home Medications: Apixaban [Eliquis] 5 mg PO BID 08/05/17 [History] Aspirin [Lo-Dose Aspirin EC] 81 mg PO DAILY 08/05/17 [History] Atorvastatin [Lipitor] 40 mg PO HS 08/05/17 [History] Cholecalciferol (Vitamin D3) [Vitamin D3] 800 unit PO DAILY 08/05/17 [History] Cyanocobalamin (B-12) [Vitamin B12] 1,000 mcg PO DAILY 08/05/17 [History] HYDROcodone/Acet 5/325 mg [[place] 5-325 mg] 1 tab PO TID PRN 08/05/17 [History] Ipratropium/Albuterol Sulfate [Combivent Respimat Inhal [place]] 1 puff IH TID PRN 08/05/17 [History] Lisinopril [Zestril] 15 mg PO DAILY 08/05/17 [History] Metformin HCl [Glucophage] 1,000 mg PO BID 08/05/17 [History] Omeprazole [PriLOSEC] 40 mg PO DAILY 08/05/17 [History] Potassium Chloride [Klor-Con 10] 10 meq PO DAILY 08/05/17 [History] Sennosides/Docusate Sodium [Senna-Docusate Sodium Tablet] 1 tab PO BID 08/05/17 [History] Eucerin Creme 1 appl TP DAILY 12/20/17 [History] GuaiFENesin/Dextromethorphan [Tussin Dm Syrup] 10 ml PO BID PRN 12/20/17 [ History] Insulin Glargine [Lantus] 10 unit SQ HS 12/20/17 [History] Lidocaine Patch [Lidoderm 5% patch] 3 each TP DAILY 12/20/17 [History] Nitroglycerin [Nitrostat] 0.4 mg SL Q5M PRN 12/20/17 [History] Carvedilol [Coreg] 3.125 mg PO BIDWM #60 tablet 01/03/18 [Rx] Furosemide [Lasix] 40 mg PO BID #60 tablet 01/03/18 [Rx] Gabapentin [Neurontin] 600 mg PO BID #60 capsule 01/03/18 [Rx] Lactulose 20 gm PO QID PRN #300 ml 01/03/18 [Rx] Allergies/Adverse Reactions: 3 Allergy/AdvReac Type Severity Reaction Status Date / Time ibuprofen [From Motrin] AdvReac See Verified 12/20/17 19:35 Comments indomethacin [From Indocin] AdvReac See Verified 12/20/17 19:35 Comments naproxen AdvReac See Verified 12/20/17 19:35 Comments Date of admission: 12/22/17 19:17 [facility] care physician: [facility] Consults: 12/23/17 12:10 Consult to Nephrology [CONS] Routine Consulting Provider: [facility]ERTA Reason for Consult: Worsening CKD, ascites/paracentesis, ?hepatorenal syndrome Call Completed: Yes 12/29/17 14:58 Consult to Respiratory Therapy [CONS] Routine Reason for Consult: needs BIPAP setup Call Completed: Yes 01/02/18 08:07 Consult to Interventional Radiology [CONS] Routine Consulting Provider: Radiology Interventional Cols Reason for Consult: Therapeutic paracentensis Call Completed: Yes Discharging clinician: Kofi Morejon Anticipated date of discharge: 01/03/18 - Constitutional Vitals: Temp Pulse Resp BP Pulse Ox 98.4 F 73 14 144/79 96 01/03/18 05:00 01/03/18 05:00 01/03/18 10:30 01/03/18 05:00 01/03/18 10:30 General appearance: Present: A&O X 3, no acute distress, obese, answers questions appropriately - Head Head exam: Present: atraumatic, normocephalic - Eye Eye exam: Present: PERRL, conjuntiva pink, sclera anicteric - Neck Neck exam general surgery: Present: supple, trachea midline. Absent: lymphadenopathy - Respiratory Respiratory exam: Present: CTAB. Absent: accessory muscle use, rales, rhonchi, wheezes - Cardiovascular Cardiovascular exam: Present: RRR, +S1, +S2. Absent: diastolic murmur, gallop, rubs, systolic murmur - GI/Abdominal GI/Abdominal exam: Present: normal bowel sounds, soft, no peritoneal signs. Absent: distended, tenderness - Extremities Exam Extremities exam: Present: pedal edema (Trace.) - Neurological Exam Neurological exam: Present: alert, CN II-XII intact, oriented X3, no focal deficits. Absent: pronater drift, facial droop, speech deficit - Skin Skin exam: Present: dry, intact - Patient Status Disposition: Home Health Service Condition: Good Functional capacity at discharge: independent ambulation Overall status at discharge: patient is progressing back to baseline - Discharge Instructions Follow Up With: [facility] [Outside] - 01/14/18 1:15 pm - Diet and Activity Activity: resume usual activities as tolerated Diet: advance to your usual diet - VTE Documentation of Mechanical Device: Intermittent pneumatic compression device Contraindication No Overlap Therapy: Admin of oral Factor Xa Inhibitor
== END 2018-01-03 14:07 | disposition home health service (06) ==
LOC: EMEROO 14:06 → 3ANU 17:55 → INTOOBSV 17:55 → 3ANU 18:07 → SUATTDRO 12-22 19:17
PROVIDERS: ADMIT Internal Medicine; ATTEND Internal Medicine

== ENCOUNTER 2018-01-23 16:27 | Observation (INO) ==
[2018-01-23 18:57] LABS: Basophils # 0.1 K/mcL (0.0-0.2); Eosinophils # 0.2 K/mcL (0.0-0.6); Eosinophils % 3.3 %; Hematocrit 31.3 % (37.5-50.1); Hemoglobin 9.7 g/dL (12.9-16.9); Immature Granulocytes % 0.3 % (0-4); Lymphocytes # 0.9 K/mcL (0.6-4.6); Lymphocytes % 15.3 %; Mean Corpuscular Hemoglobin 27.6 pg (28.0-33.3); Mean Corpuscular Volume 88.9 fL (83.0-100.0); Mean Platelet Volume 10.3 fL (9.4-12.4); Monocytes # 0.8 K/mcL (0.0-1.3); Monocytes % 13.4 %; Neutrophils # 3.9 K/mcL (1.6-8.9); Platelet Count 159 K/mcL (140-400); Red Blood Count 3.52 M/mcL (4.19-5.50); Red Cell Distribution Width 15.9 % (11.5-14.5); Segmented Neutrophils % 66.7 %
[2018-01-23] MEDS ORDERED: Furosemide 40 MG/4 ML VIAL IVP ONE (19:14)
--- NOTE | 2018-01-23 19:17 | Emergency Department Note ---
Disposition Clinical Impression: Fluid retention Liver cirrhosis Qualifiers: Hepatic cirrhosis type: unspecified hepatic cirrhosis Ascites presence: with ascites Qualified Code(s): K74.60 - Unspecified cirrhosis of liver Afib Qualifiers: Atrial fibrillation type: permanent Qualified Code(s): I48.2 - Chronic atrial fibrillation CHF (congestive heart failure) Qualifiers: Heart failure type: unspecified Heart failure chronicity: unspecified Qualified Code(s): I50.9 - Heart failure, unspecified Disposition: Admitted As Inpatient Condition: Fair Time of Disposition: 20:44 SOB HPI - General Chief Complaint: ED Shortness of Breath/Dyspnea Stated Complaint: "retaining fluids",SAM Time Seen by Provider: 01/23/18 18:16 Source: patient Mode of arrival: ambulatory Limitations: no limitations Nursing Notes Reviewed: Yes Vital Signs Reviewed: Yes - History of Present Illness 77-year-old male presents to the emergency department for difficulty in breathing due to retained fluid. Patient states he has cirrhosis as well as a little bit of CHF. Patient states he has had a hard time breathing for the last 2-3 days. Sets worsened today. The last time he had this they did a tap and is about 2 weeks ago where he had fluid drained off his abdomen. Patient is on Eloquis. Patient states he is feels like something is on his belly is having a hard for him to breathe. Systolic is fluid overloaded. He does take a water pill. Says seems is not working also is very swollen his legs as well. Patient otherwise has no complaints including no headaches, blurry vision, neck pain, back pain, nausea, vomiting, fevers, chills, chest pain, abdominal pain, pain or to 90 arms or legs, change in balance, pain with urination or any other complaints at this time - Related Data Home Medications Medication Instructions Recorded Confirmed Apixaban [Eliquis] 5 mg PO BID 08/05/17 01/23/18 Aspirin [Lo-Dose Aspirin EC] 81 mg PO DAILY 08/05/17 01/23/18 Atorvastatin [Lipitor] 40 mg PO HS 08/05/17 01/23/18 Cholecalciferol (Vitamin D3) 800 unit PO DAILY 08/05/17 01/23/18 [Vitamin D3] Cyanocobalamin (B-12) [Vitamin B12] 1,000 mcg PO DAILY 08/05/17 01/23/18 HYDROcodone/Acet 5/325 mg [[place] 1 tab PO TID PRN 08/05/17 01/23/18 5-325 mg] Ipratropium/Albuterol Sulfate 1 puff IH TID PRN 08/05/17 01/23/18 [Combivent Respimat Inhal [place]] Metformin HCl [Glucophage] 1,000 mg PO BID 08/05/17 01/23/18 Omeprazole [PriLOSEC] 40 mg PO DAILY 08/05/17 01/23/18 Sennosides/Docusate Sodium 1 tab PO BID 08/05/17 01/23/18 [Senna-Docusate Sodium Tablet] Eucerin Creme 1 appl TP DAILY 12/20/17 01/23/18 GuaiFENesin/Dextromethorphan 10 ml PO BID PRN 12/20/17 01/23/18 [Tussin Dm Syrup] Insulin Glargine [Lantus] 10 unit SQ HS 12/20/17 01/23/18 Lidocaine Patch [Lidoderm 5% patch] 3 each TP DAILY 12/20/17 01/23/18 Nitroglycerin [Nitrostat] 0.4 mg SL Q5M PRN 12/20/17 01/23/18 Morphine Immed Rel [Morphine 15 mg PO QID 01/23/18 01/23/18 Sulfate] Previous Rx's Medication Instructions Recorded Carvedilol [Coreg] 3.125 mg PO BIDWM #60 tablet 01/03/18 Furosemide [Lasix] 40 mg PO BID #60 tablet 01/03/18 Gabapentin [Neurontin] 600 mg PO BID #60 capsule 01/03/18 Lactulose 20 gm PO QID PRN #300 ml 01/03/18 Allergies Allergy/AdvReac Type Severity Reaction Status Date / Time ibuprofen [From Motrin] AdvReac See Verified 12/20/17 19:35 Comments indomethacin [From Indocin] AdvReac See Verified 12/20/17 19:35 Comments naproxen AdvReac See Verified 12/20/17 19:35 Comments Review of Systems: 10 point review of systems done and negative unless otherwise stated in the history of present illness. All systems ED: reviewed and negative except as stated. Review of Systems: As Per HPI Past Medical History - Past Medical History Attestation: Yes The following information was validated with the patient. Source: patient Medical history: Reports: atrial fibrillation, cirrhosis, CHF, COPD, diabetes, hypertension Surgical history: Reports: appendectomy, coronary bypass (CABG), pacemaker Psychiatric history: Reports: no psych history - Social History Smoking Status: Former smoker Smokeless Tobacco Status: No Alcohol use: Reports: none Drug use: Reports: none Physical Exam - General Limitations: no limitations General appearance: alert - Head Head exam: atraumatic, normocephalic, normal inspection - Eye Eye exam: Present: normal appearance, PERRL, EOMI - ENT ENT exam: normal exam, normal oropharynx, mucous membranes moist - Neck Neck exam: Present: normal inspection, full ROM, trachea midline - Chest Chest inspection: Present: normal inspection, symmetric chest wall rise - Respiratory Respiratory exam: Present: normal lung sounds bilaterally - Cardiovascular Cardiovascular exam: Present: regular rate, normal rhythm, normal heart sounds - Abdominal Exam Abdominal exam: Present: soft, Non-Tender, normal bowel sounds. Absent: tenderness, distention, guarding, rebound, rigidity - Extremities Exam Extremities exam: Present: normal inspection, full ROM, pedal edema (2+ pitting edema bilaterally). Absent: tenderness - Expanded Lower Extremity Exam Neurovascular/Tendon exam: Present: normal capillary refill. Absent: pulse deficit, motor deficit, sensory deficit, tendon deficit - Back Exam Back exam: Present: normal inspection, full ROM. Absent: tenderness - Neurological Exam Neurological exam: Present: alert, oriented X3 - Skin Skin exam: Present: warm, dry, intact, normal color Course Course Narrative: 77-year-old male presents to the emergency department complaining of fluid retention with shortness of breath. We will get chest x-ray basic labs including CBC, BMP, EKG. We will give patient IV Lasix. Most likely disposition will be admission. Patient does need to have Lutrin of his abdomen but due to be on Eloquis this needs to be done in a more controlled setting then the emergency department. Vital Signs Temperature 98 F 01/23/18 16:33 Pulse Rate 95 01/23/18 16:33 Respiratory Rate 18 01/23/18 16:33 Blood Pressure 124/82 01/23/18 16:33 O2 Sat by Pulse Oximetry 99 01/23/18 16:33 Temperature 98 F 01/23/18 16:33 Pulse Rate 95 01/23/18 16:33 Respiratory Rate 18 01/23/18 16:33 Blood Pressure 124/82 01/23/18 16:33 O2 Sat by Pulse Oximetry 99 01/23/18 16:33 Oxygen Delivery Oxygen Delivery Room Air Shortness of Breath/Dyspnea - MDM Narrative Medical decision making narrative: 77-year-old male presents to the emergency department with fluid overload. He was having difficult time breathing. This most likely is all due to either CHF or due to cirrhosis and having too much peritoneal fluid. Patient is on Eloquis so peritoneal tap was not to be done here in the emergency department. This is explained to patient he understood. Did get basic labs including BNP which came back slightly elevated all other labs came back normal. EKG showed atrial fibrillation which he chronically is in. There was fluid suggestive of CHF based on chest x-ray. Did give 40 mg IV Lasix was patient tolerated well. Due to patient needing increasing diuresis this can be done on the admitting floor. Patient agreed that he did feel like he needed be admitted. Patient was not in respiratory distress while he was here. I spoke with the hospitalist Dr. Parker who agreed to admit the patient to their service. Patient is admitted in stable condition. Chest X-Ray 01/23/18 18:36 IMPRESSION: Findings suggest congestive heart failure D/ / Rajeev Schmitz MD / Rajeev Schmitz MD Interpreting Provider: Rajeev Schmitz MD - Medical Records Medical records reviewed: Yes I reviewed the patient's medical records. - Lab Data Lab results reviewed: Yes I reviewed the patient's lab results. Result diagrams: 01/23/18 18:43 01/23/18 18:43 Lab Results 01/23/18 01/23/18 01/23/18 Range/Units 18:43 18:43 18:43 WBC 5.8 (4.3-11.1) K/mcL RBC 3.52 L (4.19-5.50) M/mcL Hgb 9.7 L (12.9-16.9) g/dL Hct 31.3 L (37.5-50.1) % MCV 88.9 (83.0-100.0) fL MCH 27.6 L (28.0-33.3) pg MCHC 31.0 L (31.6-35.5) g/dL RDW 15.9 H (11.5-14.5) % Plt Count 159 (140-400) K/mcL MPV 10.3 (9.4-12.4) fL Immature Gran % 0.3 (0-4) % Seg Neutrophils % 66.7 % Lymphocytes % 15.3 % Monocytes % 13.4 % Eosinophils % 3.3 % Basophils % 1.0 % Neutrophils # 3.9 (1.6-8.9) K/mcL Lymphocytes # 0.9 (0.6-4.6) K/mcL Monocytes # 0.8 (0.0-1.3) K/mcL Eosinophils # 0.2 (0.0-0.6) K/mcL Basophils # 0.1 (0.0-0.2) K/mcL Sodium 138 (136-145) mEq/L Potassium 3.9 (3.5-5.1) mEq/L Chloride 102 (98-107) mEq/L Carbon Dioxide 29 (23-29) mEq/L BUN 29 H (8-23) mg/dL Creatinine 1.10 (0.70-1.30) mg/dL Est GFR ( Amer) > 60 (> 60) Est GFR (Non-Af Amer) > 60 (> 60) BUN/Creatinine Ratio 26 (6-26) Glucose 120 H (70-105) mg/dL Calculated Osmolality 293 (280-300) Calcium 9.4 (8.6-10.3) mg/dL Total Bilirubin 1.0 (0.3-1.0) mg/dL AST 17 (13-39) Units/L ALT 9 (7-52) Units/L Alkaline Phosphatase 171 H (34-104) Units/L Troponin I < 0.03 (< 0.04) ng/mL B-Natriuretic Peptide 345 H (Less than 100) pg/mL Serum Total Protein 7.1 (6.4-8.9) g/dL Albumin 3.5 (3.5-5.7) g/dL Globulin 3.6 H (2.4-3.5) g/dL Albumin/Globulin Ratio 1.0 L (1.1-2.2) - Radiology Data Radiology results reviewed: Yes I reviewed the patient's radiology results. - EKG Data EKG attestation: Yes I reviewed and interpreted this EKG. EKG results narrative: EKG done at 1908 review myself and the attending shows atrial fibrillation a rate of 73, QRS 112, QTC 408 with a normal axis. There is no acute ST changes no acute T-wave changes no other signs of ischemia. No signs of WPW/Brugada syndrome heart block or heart strain or hypertrophy. No old EKG to compare with Attestation Statement - Attestation Attestation: I examined this patient and my medical decision-making was reviewed with the Resident Physician. I agree with the documented findings, disposition and treatment plan as described except to the extent set forth below. Findings consistent with volume overload. Suspect hepato-cardio comorbidity. Patient will need diuresis with Lasix. Would defer paracentesis as patient is on novel anticoagulant. Patient be admitted for diuresis and medical maximization.
[2018-01-23 19:20] LABS: Troponin I < 0.03 ng/mL (< 0.04)
[2018-01-23 19:25] LABS: Alanine Aminotransferase 9 Units/L (7-52); Albumin 3.5 g/dL (3.5-5.7); Alkaline Phosphatase 171 Units/L (34-104); Aspartate Amino Transferase 17 Units/L (13-39); BUN/Creatinine Ratio 26 (6-26); Blood Urea Nitrogen 29 mg/dL (8-23); Calcium 9.4 mg/dL (8.6-10.3); Carbon Dioxide 29 mEq/L (23-29); Chloride 102 mEq/L (98-107); Globulin 3.6 g/dL (2.4-3.5); Glucose 120 mg/dL (70-105); Osmolality,Calculated 293 (280-300); Potassium 3.9 mEq/L (3.5-5.1); Sodium 138 mEq/L (136-145); Total Protein 7.1 g/dL (6.4-8.9); eGFR For African Americans > 60 (> 60); eGFR For Non-African Americans > 60 (> 60)
[2018-01-23] MEDS ORDERED: Acetaminophen 325 MG TABLET PO ONE (19:49)
[2018-01-23] MEDS ORDERED: Insulin DETEMIR 100 UNIT/ML X5UNITS SQ SCH (21:00)
[2018-01-23] MEDS ORDERED: *HR* Dextrose 50 % in Water (Syg) 50 ML SYRINGE IVP PRN (21:53)
[2018-01-23] MEDS ORDERED: Naloxone 0.4 MG/ML INJ IVP PRN (21:53)
[2018-01-23] MEDS ORDERED: Dextrose Gel 15 GM/37.5 ML TUBE PO PRN ×2 (21:53)
[2018-01-23] MEDS ORDERED: D5% in Water 1,000 ML IVC PRN (21:53)
[2018-01-23] MEDS ORDERED: Lactulose Oral Soln 20 GM/30 ML UDC PO PRN (22:04)
[2018-01-23] MEDS ORDERED: Nitroglycerin 0.4 MG TAB.SUBL SL PRN (22:04)
[2018-01-23] MEDS ORDERED: *HR* OxyCODONE Immed Rel 5 MG TABLET PO PRN ×2 (22:04)
[2018-01-23] MEDS ORDERED: Ondansetron ODT 4 MG TAB.RAPDIS SL PRN (22:12)
--- NOTE | 2018-01-23 23:20 | Internal Med History&Physical ---
<Rey Stuart R - Last Filed: 01/24/18 01:39> Date of Encounter: 01/24/18 Time of Encounter: 21:15 Assessment and Plan (1) Cirrhosis of liver with ascites Status: Acute Patient recently diagnosed cirrhosis, this is his second admission for ascites He has been taking Lasix 40 mg BID, however was never started on spironolactone upon discharge due to previous DREW versus hepatorenal syndrome. No evidence of renal dysfunction currently. BUN 29, SCr 1.10 (better than previous 1.16-2.21) Will add spironolactone, with a ratio of spironolactone (100mg): furosemide ( 40mg). This will likely need to be titrated up prior to discharge, but to maintain a ratio of 100:40 per treatment guidelines to prevent further readmissions and return of ascites. He cannot be diagnosed as resistant to diuresis at this time, because diuretic treatment has not been optimized yet Afebrile. No leukocytosis. Anemia with hgb at 9.7 appears at baseline. Electrolytes normal Bilirubin, AST, ALT normal. Alk phos elevated to 171. Albumin 3.5. Will obtain PT/INR in AM Previous hepatitis workup showed no evidence of infection We will place on sodium restriction diet Avoid ACEI, ARBs, and NSAIDs Will consult IR for paracentesis - hold Eliquis Will consult GI for further recommendations as well Qualifiers: Hepatic cirrhosis type: unspecified hepatic cirrhosis Qualified Code(s): K74.60 - Unspecified cirrhosis of liver (2) CHF (congestive heart failure) Status: Chronic Reported history CHF. He does have peripheral edema, rales on lung exam, and findings on chest x-ray that showed increased pulmonary vascular congestion, however his fluid overload appears more related to cirrhosis with his increasing abdominal girth and recent echo findings. Will adjust diuresis as above. I expect that after his paracentesis his dyspnea will dramatically improve. Patient denies any chest pain. Troponin negative. EKG shows A. fib with a rate of 73, and no ischemic changes Echo a few weeks ago shows EF of 60%, with normal left ventricle function, indeterminate diastolic function Monitor I and O's, daily weights Qualifiers: Heart failure type: unspecified Heart failure chronicity: unspecified Qualified Code(s): I50.9 - Heart failure, unspecified (3) Diabetes Status: Chronic Will hold metformin. Continue basal insulin [address] on SSI with accuchecks. Glucose 120 on admission. 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 Continue home meds Qualifiers: Hypertension type: essential hypertension Qualified Code(s): I10 - Essential (primary) hypertension (5) CAD (coronary artery disease) of artery bypass graft Status: Chronic CAD with CABG. Patient denies chest pain. Troponin negative. EKG shows no ischemic changes. Qualifiers: [place] vs. transplanted heart: [place] heart Associated angina: without angina Qualified Code(s): I25.810 - Atherosclerosis of coronary artery bypass graft(s) without angina pectoris (6) Atrial fibrillation, chronic Status: Acute Chronic A. fib on Eliquis. Currently rate controlled. EKG shows A. fib with rate of 73, no ischemic changes Continue to monitor HR. Will hold Eliquis in preparation for paracentesis (7) DVT prophylaxis Status: Acute Eliquis on hold. [facility] - H&P: HPI Chief complaint: Dyspnea, retaining fluid Admitted From: Emergency Dept History of present illness: Mr. Jones is a 77 year old male with PMH of cirrhosis, CAD with CABG, A. fib on Eliquis, CHF with preserved EF, COPD, DM, and HTN, presented to the emergency department with 2-3 day history of increasing shortness of breath and retaining fluid. He states that that has been at its worst today. He was recently admitted to the hospital 2 weeks ago and diagnosed with cirrhosis and ascites receiving paracentesis twice during that admission. Associated symptoms are increasing abdominal girth, upper and lower extremity edema. He has been taking his Lasix 40 mg twice daily. He denies any preceding event. Etiology of his cirrhosis is not clear at this time, however he does report that he was a binge drinker in the past, for which use for over 20 years. Denies IV drug use. He denies other complaints. Denies fevers, chills, confusion, syncope, lightheadedness, vision changes, chest pain, palpitations, cough, abdominal pain, nausea, vomiting, change in bowels, hematochezia, melena , dysuria, hematuria, or leg pain. Past Med Surg Social Fam HX - Past Medical History Medical history: atrial fibrillation, cirrhosis, CHF, COPD, diabetes, hypertension Psychiatric history: no psych history - Past Surgical History Surgical History: appendectomy, coronary bypass (CABG), pacemaker - Social History Smoking Status: Former smoker Smokeless Tobacco Status: No Alcohol use: none Drug use: none Internal Medicine - H&P: Meds Apixaban [Eliquis] 5 mg PO BID 08/05/17 [History] Aspirin [Lo-Dose Aspirin EC] 81 mg PO DAILY 08/05/17 [History] Atorvastatin [Lipitor] 40 mg PO HS 08/05/17 [History] Cholecalciferol (Vitamin D3) [Vitamin D3] 800 unit PO DAILY 08/05/17 [History] Cyanocobalamin (B-12) [Vitamin B12] 1,000 mcg PO DAILY 08/05/17 [History] HYDROcodone/Acet 5/325 mg [[place] 5-325 mg] 1 tab PO TID PRN 08/05/17 [History] Ipratropium/Albuterol Sulfate [Combivent Respimat Inhal [place]] 1 puff IH TID PRN 08/05/17 [History] Metformin HCl [Glucophage] 1,000 mg PO BID 08/05/17 [History] Omeprazole [PriLOSEC] 40 mg PO DAILY 08/05/17 [History] Sennosides/Docusate Sodium [Senna-Docusate Sodium Tablet] 1 tab PO BID 08/05/17 [History] Eucerin Creme 1 appl TP DAILY 12/20/17 [History] GuaiFENesin/Dextromethorphan [Tussin Dm Syrup] 10 ml PO BID PRN 12/20/17 [ History] Insulin Glargine [Lantus] 10 unit SQ HS 12/20/17 [History] Lidocaine Patch [Lidoderm 5% patch] 3 each TP DAILY 12/20/17 [History] Nitroglycerin [Nitrostat] 0.4 mg SL Q5M PRN 12/20/17 [History] Carvedilol [Coreg] 3.125 mg PO BIDWM #60 tablet 01/03/18 [Rx] Gabapentin [Neurontin] 600 mg PO BID #60 capsule 01/03/18 [Rx] Morphine Immed Rel [Morphine Sulfate] 15 mg PO QID 01/23/18 [History] Furosemide [Lasix] 40 mg PO DAILY tablet 01/24/18 [Rx] Lactulose 20 gm PO QID PRN #300 ml 01/24/18 [Rx] Spironolactone [Aldactone] 100 mg PO DAILY #30 tablet 01/24/18 [Rx] 3 Allergy/AdvReac Type Severity Reaction Status Date / Time ibuprofen [From Motrin] AdvReac See Verified 02/11/18 17:01 Comments indomethacin [From Indocin] AdvReac See Verified 02/11/18 17:01 Comments Insulins AdvReac See Verified 02/11/18 17:01 Comments naproxen AdvReac See Verified 02/11/18 17:01 Comments All Systems PM: A 10-system review of systems was performed and is negative for pertinent findings except as documented above in the HPI. - Constitutional Vitals: Temp Pulse Resp BP Pulse Ox 98 F 95 16 139/86 100 01/23/18 21:55 01/23/18 21:55 01/23/18 21:55 01/23/18 21:55 01/23/18 21:55 General appearance: Present: A&O X 3, no acute distress - Head Head exam: Present: atraumatic, normocephalic - Eye Eye exam: Present: EOMI, PERRL, conjuntiva pink, sclera anicteric - Neck Neck exam general surgery: Present: supple, trachea midline. Absent: lymphadenopathy - Respiratory Respiratory exam: Present: rales (bilaterally). Absent: accessory muscle use, rhonchi, wheezes - Cardiovascular Cardiovascular exam: Present: irregular rhythm, +S1, +S2. Absent: diastolic murmur, systolic murmur - GI/Abdominal GI/Abdominal exam: Present: normal bowel sounds, soft, no peritoneal signs. Absent: distended, tenderness - Extremities Exam Extremities exam: Present: pedal edema (+2 bilateral pitting edema), warm, radial pulses palpable and symmetrical. Absent: calf tenderness, cyanotic - Neurological Exam Neurological exam: Present: CN II-XII intact, oriented X3, no focal deficits. Absent: facial droop, speech deficit - Skin Skin exam: Present: dry, intact Internal Med - H&P Results - Labs CBC & Chem 7: 01/23/18 18:43 01/23/18 18:43 <Preeti Meza - Last Filed: 02/14/18 10:23> Date of Encounter: 02/14/18 Internal Medicine - H&P: HPI History of present illness: Mr. Jones is a 77 year old male All Systems PM: A 10-system review of systems was performed and is negative for pertinent findings except as documented above in the HPI. - Constitutional Vitals: Temp Pulse Resp BP Pulse Ox 98.9 F 88 16 106/67 94 01/24/18 11:04 01/24/18 11:04 01/24/18 11:04 01/24/18 11:04 01/24/18 11:04 Internal Med - H&P Results - Labs CBC & Chem 7: 01/24/18 04:20 01/24/18 04:20 - Impressions ITS Impressions Paracentesis Ultrasound 01/24/18 00:00 IMPRESSION: Successful ultrasound guided paracentesis. D/ / Sandro Downs MD / Sandro Downs MD Interpreting Provider: Sandro Downs MD - Attending Attestation I personally and independently interviewed and examined the patient, and I reviewed the patient's medical record. I am in agreement with the residents assessment and proposed treatment plan. I discussed my findings and recommendation with the patient and answer his questions. The patient's medical records were edited to accurately reflect this encounter.
[2018-01-24 04:56] LABS: Basophils # 0.1 K/mcL (0.0-0.2); Eosinophils # 0.2 K/mcL (0.0-0.6); Eosinophils % 3.9 %; Hematocrit 29.2 % (37.5-50.1); Hemoglobin 9.1 g/dL (12.9-16.9); Immature Granulocytes % 0.2 % (0-4); Lymphocytes % 19.3 %; Mean Corpuscular HGB Conc 31.2 g/dL (31.6-35.5); Mean Corpuscular Hemoglobin 27.3 pg (28.0-33.3); Mean Corpuscular Volume 87.7 fL (83.0-100.0); Mean Platelet Volume 10.5 fL (9.4-12.4); Monocytes # 0.6 K/mcL (0.0-1.3); Neutrophils # 3.1 K/mcL (1.6-8.9); Platelet Count 160 K/mcL (140-400); Red Blood Count 3.33 M/mcL (4.19-5.50); Segmented Neutrophils % 62.6 %
[2018-01-24 04:58] LABS: INR 1.8; Prothrombin Time 19.7 Seconds (9.4-12.1)
[2018-01-24 05:01] LABS: Activated Partial Thrombo Time 41.5 Seconds (26.0-36.0)
[2018-01-24 05:13] LABS: Alanine Aminotransferase 8 Units/L (7-52); Albumin 3.3 g/dL (3.5-5.7); Alkaline Phosphatase 157 Units/L (34-104); Aspartate Amino Transferase 16 Units/L (13-39); BUN/Creatinine Ratio 25 (6-26); Bilirubin,Total 0.9 mg/dL (0.3-1.0); Blood Urea Nitrogen 29 mg/dL (8-23); Carbon Dioxide 30 mEq/L (23-29); Chloride 102 mEq/L (98-107); Globulin 3.4 g/dL (2.4-3.5); Glucose 159 mg/dL (70-105); Magnesium 1.8 mg/dL (1.6-2.6); Osmolality,Calculated 295 (280-300); Phosphorous 3.4 mg/dL (2.7-4.5); Potassium 3.8 mEq/L (3.5-5.1); Sodium 138 mEq/L (136-145); Total Protein 6.7 g/dL (6.4-8.9); eGFR For African Americans > 60 (> 60); eGFR For Non-African Americans > 60 (> 60)
[2018-01-24] MEDS ORDERED: Ipratropium/Albuterol Neb 3 ML IH PRN (07:29)
[2018-01-24] MEDS: Insulin LISPRO 300 UNITS/3 ML VIAL SQ SCH ×2 (08:36→11:56)
[2018-01-24] MEDS ORDERED: Sennosides/Docusate Sodium TABLET PO SCH (09:00)
[2018-01-24] MEDS ORDERED: Furosemide 40 MG TABLET PO SCH (09:00)
[2018-01-24] MEDS ORDERED: Gabapentin 300 MG CAPSULE PO SCH (09:00)
[2018-01-24] MEDS ORDERED: Eucerin Cream 57 GM TUBE TP SCH (09:00)
[2018-01-24] MEDS ORDERED: Cholecalciferol (D-3) 1,000 UNIT TABLET PO SCH (09:00)
[2018-01-24] MEDS ORDERED: Aspirin Enteric Coated 81 MG Tablet PO SCH (09:00)
[2018-01-24] MEDS ORDERED: Cyanocobalamin (B-12) 1,000 MCG TABLET PO SCH (09:00)
--- NOTE | 2018-01-24 10:27 | Gastroenterology Consult Note ---
Date of Encounter: 01/24/18 Time of Encounter: 09:50 - Assessment and plan (1) Ascites Current Visit: No Status: Acute Assessment and plan: Paracentesis per IR today. Qualifiers: Ascites type: other type Qualified Code(s): R18.8 - Other ascites (2) Liver cirrhosis Current Visit: Yes Status: Chronic Assessment and plan: Pt has a MELD na score of 16, child morse 9. This is his second admission for ascites in the past month. He needs continued on lasix, aldactone and lactulose. He may be a candidate for TIPs procedure. Needs yearly EGD for varices surveillance, none seen on EGD 01/13. Qualifiers: Hepatic cirrhosis type: unspecified hepatic cirrhosis Ascites presence: with ascites Qualified Code(s): K74.60 - Unspecified cirrhosis of liver - Time Spent With Patient Total time spent is greater than 50% in coordination of care (as documented) at patient's floor/unit and/or counseling patient: GI History of Present Illness - Data of Consult Patient: known to practice within the last 3 years Consult date: 01/24/18 Requesting Physician: Little Candelaria MD - Consult Narrative Reason for consult: cirrhosis/ascites History of present illness: Mr. Jones is a 77 year old male with PMHx of Afib on eliquis, COPD, DM, CKD III , HTN, liver cirrhosis, and CHF. He presented to the emergency department with 2 -3 day history of increasing shortness of breath and retaining fluid. He was recently admitted to the hospital 2 weeks ago and diagnosed with cirrhosis and ascites receiving paracentesis twice during that admission. He was started on lactulose and advised he needs to have 3-4 BMs a day. He states he ran out of the lactulose 1 week ago. He also reports increasing abdominal girth, upper and lower extremity edema. He has been taking his Lasix 40 mg twice daily. He denies any ETOH in at least 20 years, has a history of binge drinking in the past. Denies IV drug use. He denies other complaints. Denies fevers, chills, confusion, syncope, lightheadedness, vision changes, chest pain, palpitations, cough, abdominal pain, nausea, vomiting, change in bowels, hematochezia, melena , dysuria, hematuria, or leg pain. CXR shows CHF. Labs reveal a Hgb 9.1, platelet count 160, INR 1.8, T bili 0.9, AST 16 and ALT 8, alk phos 157, albumin 3.3. MELD NA 16 Child Morse 9 Procedures: 12/31/17 EGD normal esophagus, stomach, and duodenum NSAIDs: ASA Anticoagulation: Eliquis Past Med Surg Social Fam HX - Past Medical History Medical history: atrial fibrillation, cirrhosis, CHF, COPD, diabetes, hypertension Psychiatric history: no psych history - Past Surgical History Surgical History: appendectomy, coronary bypass (CABG), pacemaker - Social History Smoking Status: Former smoker Smokeless Tobacco Status: No Alcohol use: none Drug use: none Review of Systems: GI: as per [employer] [place] GENER[facility]: denies fever, has some chills EYES: denies yellow discoloration ENT: denies pain with swallowing or difficulty swallowing CARDIO: denies chest pain, palpitations RESP: Shortness of breath with exertion : denies change in color of urine NEURO: weakness HEME: Denies any bruising MS: chronic lower extremity edema and redness DERM: denies rash or itching PSYCH: history of anxiety or depression - Constitutional Vitals: Temp Pulse Resp BP Pulse Ox 98.0 F 95 17 117/78 93 01/24/18 07:36 01/24/18 07:36 01/24/18 07:36 01/24/18 07:36 01/24/18 07:36 Exam: CONSTITUTIONAL:~alert, no acute distress.~HEAD:~normocephalic.~EYES:~no jaundice.~NECK:~no obvious swelling.~HEART:~regular rate and rhythm, murmur noted.~LUNGS:~bilateral fair air entry, crackles to bilateral bases.~ABDOMEN:~ round and distended, non tender, no masses palpable, no organomegaly.~RECTAL EXAM:~Deferred.~EXTREMITIES:~no clubbing, cyanosis, redness and 2+ edema noted to BLE.~SKIN:~no stigmata of chronic liver disease.~NEUROLOGIC:~no obvious focal defect.~~~~ Results - Labs CBC & Chem 7: 01/24/18 04:20 01/24/18 04:20 Labs: Last Result Calcium 9.0 mg/dL (8.6-10.3) 01/24/18 04:20 Troponin I < 0.03 ng/mL (< 0.04) 01/23/18 18:43 Entire Visit Hgb 9.1 g/dL (12.9-16.9) L 01/24/18 04:20 Hct 29.2 % (37.5-50.1) L 01/24/18 04:20 PT 19.7 Seconds (9.4-12.1) H 01/24/18 04:20 Total Bilirubin 0.9 mg/dL (0.3-1.0) 01/24/18 04:20 AST 16 Units/L (13-39) 01/24/18 04:20 ALT 8 Units/L (7-52) 01/24/18 04:20 - ABG ABG results: PT/INR, D-dimer PT 19.7 Seconds (9.4-12.1) H 01/24/18 04:20 Consult Discharge Plan - Plan [facility]errals: [facility] [Primary Care Provider] -
--- NOTE | 2018-01-24 11:04 | Discharge Summary ---
Orders not resulted at time of discharge: Pending orders 01/24/18 IR paracentesis ultrasound [IR] Routine Date of Encounter: 01/24/18 Time of Encounter: 11:02 - Discharge Diagnosis (1) Ascites Priority: Primary Status: Acute Qualifiers: Ascites type: other type Qualified Code(s): R18.8 - Other ascites (2) Cirrhosis of liver with ascites Priority: Primary Status: Acute Qualifiers: Hepatic cirrhosis type: unspecified hepatic cirrhosis Qualified Code(s): K74.60 - Unspecified cirrhosis of liver (3) Atrial fibrillation, chronic Priority: Secondary Status: Acute (4) Hypertension Priority: Secondary Status: Acute Qualifiers: Hypertension type: essential hypertension Qualified Code(s): I10 - Essential (primary) hypertension (5) CAD (coronary artery disease) of artery bypass graft Priority: Secondary Status: Chronic Qualifiers: [place] vs. 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 Jones is a 77 year old male with PMH of cirrhosis, CAD with CABG, A. fib on Eliquis, CHF with preserved EF, COPD, DM, and HTN, presented to the emergency department with 2-3 day history of increasing shortness of breath and retaining fluid. The patient was recently admitted to the hospital 2 weeks ago and diagnosed with cirrhosis and ascites receiving paracentesis twice during that admission. Etiology of his cirrhosis is not clear at this time, however he does report that he was a binge drinker in the past, for which use for over 20 years. The patient was taking 40 mg of Lasix twice a day prior to admission. He was admitted to the hospitalist service as he had abdominal girth and swelling. He underwent ultrasound-guided paracentesis with about 5 L removed. He felt well after that. Was seen by GI who recommended that he be started on Aldactone 100 mg. He was started on that and he was told to cut down his Lasix to 40 mg daily. He was stable for discharge with follow-up with GI scheduled next week. He was discharged on 01/24 - Time Spent with Patient Total time spent providing and/or coordinating discharge services: Greater than 30 minutes - Discharge Medications Prescriptions: Lactulose 20 gm PO QID PRN #300 ml PRN Reason: Constipation Spironolactone [Aldactone] 100 mg PO DAILY #30 tablet Home Medications: Apixaban [Eliquis] 5 mg PO BID 08/05/17 [History] Aspirin [Lo-Dose Aspirin EC] 81 mg PO DAILY 08/05/17 [History] Atorvastatin [Lipitor] 40 mg PO HS 08/05/17 [History] Cholecalciferol (Vitamin D3) [Vitamin D3] 800 unit PO DAILY 08/05/17 [History] Cyanocobalamin (B-12) [Vitamin B12] 1,000 mcg PO DAILY 08/05/17 [History] HYDROcodone/Acet 5/325 mg [[place] 5-325 mg] 1 tab PO TID PRN 08/05/17 [History] Ipratropium/Albuterol Sulfate [Combivent Respimat Inhal [place]] 1 puff IH TID PRN 08/05/17 [History] Metformin HCl [Glucophage] 1,000 mg PO BID 08/05/17 [History] Omeprazole [PriLOSEC] 40 mg PO DAILY 08/05/17 [History] Sennosides/Docusate Sodium [Senna-Docusate Sodium Tablet] 1 tab PO BID 08/05/17 [History] Eucerin Creme 1 appl TP DAILY 12/20/17 [History] GuaiFENesin/Dextromethorphan [Tussin Dm Syrup] 10 ml PO BID PRN 12/20/17 [ History] Insulin Glargine [Lantus] 10 unit SQ HS 12/20/17 [History] Lidocaine Patch [Lidoderm 5% patch] 3 each TP DAILY 12/20/17 [History] Nitroglycerin [Nitrostat] 0.4 mg SL Q5M PRN 12/20/17 [History] Carvedilol [Coreg] 3.125 mg PO BIDWM #60 tablet 01/03/18 [Rx] Gabapentin [Neurontin] 600 mg PO BID #60 capsule 01/03/18 [Rx] Morphine Immed Rel [Morphine Sulfate] 15 mg PO QID 01/23/18 [History] Furosemide [Lasix] 40 mg PO DAILY tablet 01/24/18 [Rx] Lactulose 20 gm PO QID PRN #300 ml 01/24/18 [Rx] Spironolactone [Aldactone] 100 mg PO DAILY #30 tablet 01/24/18 [Rx] Allergies/Adverse Reactions: 3 Allergy/AdvReac Type Severity Reaction Status Date / Time ibuprofen [From Motrin] AdvReac See Verified 12/20/17 19:35 Comments indomethacin [From Indocin] AdvReac See Verified 12/20/17 19:35 Comments naproxen AdvReac See Verified 12/20/17 19:35 Comments Date of admission: 01/23/18 20:12 [facility] care physician: [facility] Consults: 01/24/18 01:17 Consult to Interventional Radiology [CONS] Routine Consulting Provider: Radiology Interventional Cols Reason for Consult: Cirrhosis with ascites, will likely need paracentesis. Will hold Eliquis. Call Completed: No 01/24/18 01:47 Consult to Gastroenterology [CONS] Routine Consulting Provider: Gastroenterology Gita Reason for Consult: Cirrhosis with ascites and dyspnea. Recent admission 2 weeks ago. Call Completed: No - Constitutional Vitals: Temp Pulse Resp BP Pulse Ox 98.0 F 95 17 117/78 93 01/24/18 07:36 01/24/18 07:36 01/24/18 07:36 01/24/18 07:36 01/24/18 07:36 General appearance: Present: A&O X 3, no acute distress Exam: GEN: NAD CVS: RRR. S1, S2, No m/r/g RESP: CTAB ABD: Soft, NT, ND, +BS. Generalized anasarca. EXT: 1+ edema.. 2+ DP. No rashes NEURO: Nonfocal - Patient Status Disposition: Home, Self-Care Condition: Fair Overall status at discharge: patient is progressing back to baseline - Discharge Instructions Follow Up With: [facility],PCP [Primary Care Provider] - 01/30/18 8:45 am Nirav Martinez MD [Partnered Physician] - 01/28/18 2:50 pm - Diet and Activity Activity: increase activity as tolerated Diet: diabetic diet, low salt diet
[2018-01-24 11:10] VITALS: BP 106/67
--- NOTE | 2018-01-24 16:48 | Electrocardiograph Report ---
[place] [id number] Test Date: 2018-01-23 Pat Name: Hadley Jones Department: 104 Room: 2A23 Gender: M Settlement Technician: DEEPAK : 1940 Requested By: Lee Gilbert Order Number: [id number] Reading MD: Matthew Cyr Measurements Intervals [place] Rate: 73 P: [place]: 0 QRS: 112 QRSD: 112 T: -21 QT: 382 QTc: 408 Interpretive Statements ATRIAL FIBRILLATION LOW QRS VOLTAGE Electronically Signed On 01-24-2018 16:47:02 EDT by Matthew Cyr
[2018-01-24] MEDS ORDERED: Insulin LISPRO 300 UNITS/3 ML VIAL SQ SCH (21:00)
== END 2018-01-24 12:25 | disposition home or self-care (01) ==
LOC: 2ANU 16:27 → EMEROO 16:27 → 2ANU 21:06
PROVIDERS: ADMIT Internal Medicine Nephrology; ATTEND Internal Medicine

== ENCOUNTER 2021-03-18 13:43 | Inpatient (IN) ==
[2021-03-18 14:43] LABS: Basophils % 0.5 %; Eosinophils # 0.1 K/mcL (0.0-0.6); Eosinophils % 1.8 %; Hematocrit 39.1 % (37.5-50.1); Hemoglobin 12.4 g/dL (12.9-16.9); Immature Granulocytes % 0.3 % (0-4); Immature Platelets 6.3 % (1.1-6.1); Lymphocytes # 1.6 K/mcL (0.6-4.6); Lymphocytes % 20.7 %; Mean Corpuscular HGB Conc 31.7 g/dL (31.6-35.5); Mean Corpuscular Hemoglobin 29.6 pg (28.0-33.3); Mean Corpuscular Volume 93.3 fL (83.0-100.0); Mean Platelet Volume 11.9 fL (9.4-12.4); Monocytes # 0.7 K/mcL (0.0-1.3); Monocytes % 9.1 %; Neutrophils # 5.4 K/mcL (1.6-8.9); Platelet Count 121 K/mcL (140-400); Red Blood Count 4.19 M/mcL (4.19-5.50); Red Cell Distribution Width 13.9 % (11.5-14.5); Segmented Neutrophils % 67.6 %; White Blood Count 7.9 K/mcL (4.3-11.1)
[2021-03-18 14:58] LABS: Calcium 9.6 mg/dL (8.6-10.3); Potassium 4.3 mEq/L (3.5-5.1)
[2021-03-18] MEDS ORDERED: ceFAZolin 1,000 MG in Water for inj. (sterile) 10 ML IVP ONE (16:48)
[2021-03-18] MEDS ORDERED: Ondansetron ODT 4 MG TAB.RAPDIS SL PRN (16:58)
[2021-03-18] MEDS ORDERED: MOM Conc 10 ML UD.LIQ PO PRN (16:58)
[2021-03-18] MEDS ORDERED: Mag Hydrox/Al Hydrox/Simeth 30 ML UDC PO PRN (16:58)
[2021-03-18] MEDS ORDERED: *HR* Dextrose 50 % in Water (Vial) 50 ML VIAL IVP PRN (16:58)
[2021-03-18] MEDS ORDERED: Naloxone 0.4 MG/ML INJ IVP PRN (16:58)
[2021-03-18] MEDS ORDERED: D5% in Water 1,000 ML IVC PRN (16:58)
[2021-03-18] MEDS ORDERED: Dextrose Gel 15 GM/37.5 ML TUBE PO PRN ×2 (16:58)
[2021-03-18] MEDS ORDERED: *HR* OxyCODONE/APAP 5/325 TABLET PO ONE (17:00)
[2021-03-18] MEDS ORDERED: Insulin LISPRO 300 UNITS/3 ML VIAL SUBQ SCH (21:00)
[2021-03-18] MEDS: Acetaminophen 325 MG TABLET PO PRN (21:03)
[2021-03-19] MEDS: CeFAZolin 2 GM/120 ML BAG IVPB SCH ×3 (00:55→17:58)
[2021-03-19] MEDS: Acetaminophen 325 MG TABLET PO PRN (04:57)
[2021-03-19 06:50] LABS: Red Cell Distribution Width 14.1 % (11.5-14.5)
[2021-03-19 06:52] LABS: Hematocrit 39.4 % (37.5-50.1); Hemoglobin 12.2 g/dL (12.9-16.9); Immature Platelets 6.6 % (1.1-6.1); Mean Corpuscular Hemoglobin 29.3 pg (28.0-33.3); Mean Corpuscular Volume 94.5 fL (83.0-100.0); Mean Platelet Volume 11.5 fL (9.4-12.4); Red Blood Count 4.17 M/mcL (4.19-5.50); White Blood Count 5.6 K/mcL (4.3-11.1)
[2021-03-19 07:00] LABS: Calcium 9.6 mg/dL (8.6-10.3); Magnesium 1.9 mg/dL (1.6-2.6); Potassium 4.2 mEq/L (3.5-5.1)
[2021-03-19] MEDS ORDERED: Insulin LISPRO 300 UNITS/3 ML VIAL SUBQ SCH (07:30)
[2021-03-19] MEDS ORDERED: polyethylene glycoL 3350 17 GM POWD.PACK PO PRN (07:55)
[2021-03-19] MEDS ORDERED: Nitroglycerin 0.4 MG TAB.SUBL SL PRN (07:55)
[2021-03-19] MEDS ORDERED: NON-FORMULARY MEDICATION 1 EACH EACH (Ipratropium/Albuterol Sulfate 4 GM Mist.Inhal) IH PRN (07:55)
[2021-03-19] MEDS ORDERED: NON-FORMULARY MEDICATION 1 EACH EACH (Alendronate Sodium [Fosamax] 70 MG Tablet) PO SCH (08:00)
[2021-03-19 09:12] LABS: Estimated Average Glucose 220 mg/dl; Hemoglobin A1C 9.3 %
[2021-03-19] MEDS: Aspirin Enteric Coated 81 MG Tablet PO SCH (09:41)
[2021-03-19] MEDS: Apixaban 5 MG TABLET PO SCH ×2 (09:41→21:09)
[2021-03-19] MEDS: Cholecalciferol (D-3) 1,000 UNIT (25MCG) TABLET PO SCH (09:42)
[2021-03-19] MEDS: Morphine Sulfate Immed Rel 15 MG TABLET PO SCH ×4 (09:42→21:09)
[2021-03-19] MEDS: ursodioL 300 MG CAPSULE PO SCH ×2 (09:42→21:09)
[2021-03-19] MEDS: Spironolactone 25 MG TABLET PO SCH (09:42)
[2021-03-19] MEDS: Insulin LISPRO 300 UNITS/3 ML VIAL SUBQ SCH ×3 (12:56→21:10)
[2021-03-19] MEDS: *HR* HYDROcodone/Acet 5/325 mg TABLET PO PRN ×2 (12:58→21:18)
[2021-03-19] MEDS: Gabapentin 300 MG CAPSULE PO SCH ×2 (14:24→21:09)
[2021-03-19] MEDS: Metoprolol XL (24 HR) Succ 25 MG TAB.ER.24H PO SCH (17:58)
[2021-03-19] MEDS ORDERED: Insulin DETEMIR 100 UNIT/ML X5UNITS SUBQ SCH (21:00)
[2021-03-20] MEDS: CeFAZolin 2 GM/120 ML BAG IVPB SCH ×3 (00:12→16:25)
[2021-03-20 07:06] LABS: Eosinophils % 2.2 %; Red Blood Count 4.09 M/mcL (4.19-5.50)
[2021-03-20 07:09] LABS: Basophils # 0.1 K/mcL (0.0-0.2); Basophils % 0.7 %; Eosinophils # 0.2 K/mcL (0.0-0.6); Hematocrit 39.2 % (37.5-50.1); Immature Granulocytes % 0.4 % (0-4); Immature Platelets 6.7 % (1.1-6.1); Lymphocytes # 1.5 K/mcL (0.6-4.6); Lymphocytes % 22.1 %; Mean Corpuscular HGB Conc 30.6 g/dL (31.6-35.5); Mean Corpuscular Hemoglobin 29.3 pg (28.0-33.3); Mean Corpuscular Volume 95.8 fL (83.0-100.0); Mean Platelet Volume 11.4 fL (9.4-12.4); Monocytes # 0.7 K/mcL (0.0-1.3); Neutrophils # 4.3 K/mcL (1.6-8.9); Platelet Count 111 K/mcL (140-400); Red Cell Distribution Width 14.2 % (11.5-14.5); Segmented Neutrophils % 64.6 %; White Blood Count 6.7 K/mcL (4.3-11.1)
[2021-03-20 07:24] LABS: Calcium 9.4 mg/dL (8.6-10.3); Potassium 4.6 mEq/L (3.5-5.1)
[2021-03-20] MEDS: Spironolactone 25 MG TABLET PO SCH (08:59)
[2021-03-20] MEDS: Apixaban 5 MG TABLET PO SCH ×2 (08:59→20:50)
[2021-03-20] MEDS: ursodioL 300 MG CAPSULE PO SCH ×2 (08:59→20:49)
[2021-03-20] MEDS: Gabapentin 300 MG CAPSULE PO SCH ×3 (08:59→20:49)
[2021-03-20] MEDS: Morphine Sulfate Immed Rel 15 MG TABLET PO SCH ×4 (08:59→20:49)
[2021-03-20] MEDS: Cholecalciferol (D-3) 1,000 UNIT (25MCG) TABLET PO SCH (08:59)
[2021-03-20] MEDS: Metoprolol XL (24 HR) Succ 25 MG TAB.ER.24H PO SCH ×2 (09:00→17:45)
[2021-03-20] MEDS: Aspirin Enteric Coated 81 MG Tablet PO SCH (09:00)
[2021-03-20] MEDS ORDERED: Furosemide 40 MG TABLET PO SCH (09:00)
[2021-03-20] MEDS: Insulin LISPRO 300 UNITS/3 ML VIAL SUBQ SCH ×4 (11:35→20:25)
[2021-03-20] MEDS: Insulin DETEMIR 100 UNIT/ML X5UNITS SUBQ SCH ×2 (12:08→20:25)
[2021-03-20] MEDS: *HR* HYDROcodone/Acet 5/325 mg TABLET PO PRN ×2 (12:16→20:54)
[2021-03-20] MEDS: Eucerin Cream 57 GM TUBE TP PRN (12:17)
[2021-03-21] MEDS: Acetaminophen 325 MG TABLET PO PRN (00:04)
[2021-03-21 01:52] LABS: Calcium 9.4 mg/dL (8.6-10.3); Potassium 5.1 mEq/L (3.5-5.1)
[2021-03-21] MEDS ORDERED: Furosemide 40 MG/4 ML VIAL IVP SCH (09:00)
[2021-03-21] MEDS: Insulin LISPRO 300 UNITS/3 ML VIAL SUBQ SCH ×4 (09:15→19:51)
[2021-03-21] MEDS: CeFAZolin 2 GM/120 ML BAG IVPB SCH ×4 (09:15→23:05)
[2021-03-21] MEDS: Gabapentin 300 MG CAPSULE PO SCH ×3 (09:16→19:57)
[2021-03-21] MEDS: Insulin DETEMIR 100 UNIT/ML X5UNITS SUBQ SCH ×2 (09:16→19:57)
[2021-03-21] MEDS: Aspirin Enteric Coated 81 MG Tablet PO SCH (09:16)
[2021-03-21] MEDS: Morphine Sulfate Immed Rel 15 MG TABLET PO SCH ×4 (09:16→19:57)
[2021-03-21] MEDS: Apixaban 5 MG TABLET PO SCH ×2 (09:16→19:57)
[2021-03-21] MEDS: Metoprolol XL (24 HR) Succ 25 MG TAB.ER.24H PO SCH ×2 (09:17→16:31)
[2021-03-21] MEDS: ursodioL 300 MG CAPSULE PO SCH ×2 (09:17→19:57)
[2021-03-21] MEDS: Spironolactone 25 MG TABLET PO SCH (09:18)
[2021-03-21] MEDS: Cholecalciferol (D-3) 1,000 UNIT (25MCG) TABLET PO SCH (09:18)
[2021-03-21] MEDS: *HR* HYDROcodone/Acet 5/325 mg TABLET PO PRN (14:04)
[2021-03-21 19:05] LABS: Bilirubin,Urine Negative (Negative); Blood,Urine Negative (Negative); Clarity,Urine Clear (Clear); Color,Urine Light-Yellow (Yellow); Glucose,Urine (UA) 200 mg/dL (Normal); Ketones,Urine Negative (Negative); Leukocyte Esterase,Urine Negative (Negative); Mucus,Urine Few per lpf (None-Few); Nitrite,Urine Negative (Negative); PH,Urine 5.5 pH Units (5.0-8.0); Protein,Urine Negative (Neg-Trace); RBC,Urine 0-3 per hpf (0-3); Specific Gravity,Urine 1.018 (1.010-1.025); Urobilinogen,Urine Normal (Normal); WBC,Urine 0-3 per hpf (0-3)
[2021-03-21 19:08] LABS: Protein/Creatinine Ratio,Urine 0.1 mg/mg (0.00-0.20); Sodium, Urine 46.6 mEq/L
[2021-03-22] MEDS: *HR* HYDROcodone/Acet 5/325 mg TABLET PO PRN ×2 (01:28→16:27)
[2021-03-22 06:00] LABS: Uric Acid 8.1 mg/dL (2.3-7.6)
[2021-03-22 06:01] LABS: Potassium 4.9 mEq/L (3.5-5.1)
[2021-03-22] MEDS: Insulin DETEMIR 100 UNIT/ML X5UNITS SUBQ SCH ×2 (08:13→22:27)
[2021-03-22] MEDS: Insulin LISPRO 300 UNITS/3 ML VIAL SUBQ SCH ×4 (08:13→22:24)
[2021-03-22] MEDS: CeFAZolin 2 GM/120 ML BAG IVPB SCH ×2 (08:14→16:23)
[2021-03-22] MEDS: Cholecalciferol (D-3) 1,000 UNIT (25MCG) TABLET PO SCH (08:15)
[2021-03-22] MEDS: Gabapentin 300 MG CAPSULE PO SCH ×3 (08:15→22:26)
[2021-03-22] MEDS: Spironolactone 25 MG TABLET PO SCH (08:15)
[2021-03-22] MEDS: Aspirin Enteric Coated 81 MG Tablet PO SCH (08:15)
[2021-03-22] MEDS: Apixaban 5 MG TABLET PO SCH ×2 (08:15→22:26)
[2021-03-22] MEDS: Metoprolol XL (24 HR) Succ 25 MG TAB.ER.24H PO SCH ×2 (08:15→17:28)
[2021-03-22] MEDS: Morphine Sulfate Immed Rel 15 MG TABLET PO SCH ×4 (08:16→22:26)
[2021-03-22] MEDS: Furosemide 40 MG TABLET PO SCH (08:16)
[2021-03-22] MEDS: ursodioL 300 MG CAPSULE PO SCH ×2 (08:16→22:26)
[2021-03-22] MEDS: Ipratropium/Albuterol Neb 3 ML IH PRN (09:01)
[2021-03-22] MEDS ORDERED: GUAIFENESIN 400 MG PO PRN (17:21)
[2021-03-22] MEDS: Sennosides/Docusate Sodium TABLET PO SCH (22:26)
[2021-03-23] MEDS: CeFAZolin 2 GM/120 ML BAG IVPB SCH ×4 (00:22→23:17)
[2021-03-23] MEDS: Ipratropium/Albuterol Neb 3 ML IH PRN (02:03)
[2021-03-23 04:31] LABS: Basophils # 0.1 K/mcL (0.0-0.2); Basophils % 0.7 %; Eosinophils # 0.1 K/mcL (0.0-0.6); Eosinophils % 1.9 %; Hematocrit 36.8 % (37.5-50.1); Hemoglobin 11.2 g/dL (12.9-16.9); Immature Granulocytes % 0.4 % (0-4); Lymphocytes # 1.3 K/mcL (0.6-4.6); Lymphocytes % 16.7 %; Mean Corpuscular HGB Conc 30.4 g/dL (31.6-35.5); Mean Corpuscular Hemoglobin 29.1 pg (28.0-33.3); Mean Corpuscular Volume 95.6 fL (83.0-100.0); Mean Platelet Volume 11.5 fL (9.4-12.4); Monocytes # 0.7 K/mcL (0.0-1.3); Monocytes % 9.3 %; Neutrophils # 5.4 K/mcL (1.6-8.9); Platelet Count 102 K/mcL (140-400); Red Blood Count 3.85 M/mcL (4.19-5.50); Red Cell Distribution Width 14.3 % (11.5-14.5); White Blood Count 7.5 K/mcL (4.3-11.1)
[2021-03-23 04:52] LABS: Potassium 5.2 mEq/L (3.5-5.1)
[2021-03-23] MEDS: ursodioL 300 MG CAPSULE PO SCH ×2 (09:24→19:55)
[2021-03-23] MEDS: Metoprolol XL (24 HR) Succ 25 MG TAB.ER.24H PO SCH ×2 (09:24→17:46)
[2021-03-23] MEDS: Gabapentin 300 MG CAPSULE PO SCH ×3 (09:24→19:55)
[2021-03-23] MEDS: Furosemide 40 MG TABLET PO SCH (09:25)
[2021-03-23] MEDS: Morphine Sulfate Immed Rel 15 MG TABLET PO SCH ×4 (09:25→19:55)
[2021-03-23] MEDS: Cholecalciferol (D-3) 1,000 UNIT (25MCG) TABLET PO SCH (09:25)
[2021-03-23] MEDS: Aspirin Enteric Coated 81 MG Tablet PO SCH (09:26)
[2021-03-23] MEDS: Sennosides/Docusate Sodium TABLET PO SCH ×2 (09:26→19:56)
[2021-03-23] MEDS: Apixaban 5 MG TABLET PO SCH ×2 (09:26→19:55)
[2021-03-23] MEDS: Insulin DETEMIR 100 UNIT/ML X5UNITS SUBQ SCH ×2 (09:27→19:56)
[2021-03-23] MEDS: Insulin LISPRO 300 UNITS/3 ML VIAL SUBQ SCH ×4 (09:27→20:07)
[2021-03-24] MEDS: Eucerin Cream 57 GM TUBE TP PRN (03:51)
[2021-03-24] MEDS: Aspirin Enteric Coated 81 MG Tablet PO SCH (08:57)
[2021-03-24] MEDS: Cholecalciferol (D-3) 1,000 UNIT (25MCG) TABLET PO SCH (08:57)
[2021-03-24] MEDS: Insulin DETEMIR 100 UNIT/ML X5UNITS SUBQ SCH (08:57)
[2021-03-24] MEDS: Furosemide 40 MG TABLET PO SCH (08:57)
[2021-03-24] MEDS: Sennosides/Docusate Sodium TABLET PO SCH (08:57)
[2021-03-24] MEDS: Gabapentin 300 MG CAPSULE PO SCH (08:58)
[2021-03-24] MEDS: Apixaban 5 MG TABLET PO SCH (08:58)
[2021-03-24] MEDS: Morphine Sulfate Immed Rel 15 MG TABLET PO SCH (08:58)
[2021-03-24] MEDS: ursodioL 300 MG CAPSULE PO SCH (08:58)
[2021-03-24] MEDS: CeFAZolin 2 GM/120 ML BAG IVPB SCH (08:59)
[2021-03-24] MEDS: Insulin LISPRO 300 UNITS/3 ML VIAL SUBQ SCH ×2 (09:00→11:36)
[2021-03-24] MEDS: Metoprolol XL (24 HR) Succ 25 MG TAB.ER.24H PO SCH (09:02)
[2021-03-24 09:38] LABS: Calcium 9.1 mg/dL (8.6-10.3); Potassium 5.2 mEq/L (3.5-5.1)
[2021-03-24 10:12] VITALS: BP 133/85
[2021-03-24] MEDS: Ipratropium/Albuterol Neb 3 ML IH PRN (11:14)
== END 2021-03-24 12:22 | disposition home or self-care (01) | DRG 638 ==
LOC: 3NENU 13:43 → EMEROOARM 13:43 → SUATTDRO 17:33 → 3NENU 18:33 → SUATTDRO 03-20 16:56
PROVIDERS: ADMIT Internal Medicine; ATTEND Internal Medicine

== ENCOUNTER 2021-04-15 21:03 | Observation (INO) ==
[2021-04-15] MEDS ORDERED: Piperacillin/Tazobactam 3.375 GM in 0.9 % Sodium Chloride Mini Bag 100 ML IVPB ONE (21:44)
[2021-04-15] MEDS ORDERED: Vancomycin 1,750 MG/517.5 ML IV.SOLN IVPB ONE (22:00)
[2021-04-15 22:08] LABS: Basophils # 0.1 K/mcL (0.0-0.2); Basophils % 0.6 %; Eosinophils # 0.1 K/mcL (0.0-0.6); Eosinophils % 1.4 %; Hematocrit 36.4 % (37.5-50.1); Hemoglobin 11.3 g/dL (12.9-16.9); Immature Granulocytes % 0.2 % (0-4); Lymphocytes # 1.3 K/mcL (0.6-4.6); Lymphocytes % 14.9 %; Mean Corpuscular Hemoglobin 28.8 pg (28.0-33.3); Mean Corpuscular Volume 92.9 fL (83.0-100.0); Mean Platelet Volume 11.6 fL (9.4-12.4); Monocytes # 0.6 K/mcL (0.0-1.3); Monocytes % 7.6 %; Neutrophils # 6.3 K/mcL (1.6-8.9); Platelet Count 115 K/mcL (140-400); Red Blood Count 3.92 M/mcL (4.19-5.50); Red Cell Distribution Width 14.2 % (11.5-14.5); Segmented Neutrophils % 75.3 %; White Blood Count 8.4 K/mcL (4.3-11.1)
[2021-04-15 22:25] LABS: Calcium 9.1 mg/dL (8.6-10.3); Potassium 4.1 mEq/L (3.5-5.1)
[2021-04-15] MEDS ORDERED: *HR* FentaNYL (PF) 100 MCG/2 ML VIAL IVP ONE (22:32)
[2021-04-15] MEDS ORDERED: Naloxone 0.4 MG/ML INJ IVP PRN (23:55)
[2021-04-15] MEDS ORDERED: Ondansetron 4 MG/2 ML VIAL IVP PRN (23:55)
[2021-04-15] MEDS ORDERED: Ipratropium/Albuterol Neb 3 ML IH PRN (23:57)
[2021-04-15] MEDS ORDERED: Dextrose Gel 15 GM/37.5 ML TUBE PO PRN ×2 (23:58)
[2021-04-15] MEDS ORDERED: D5% in Water 1,000 ML IVC PRN (23:58)
[2021-04-15] MEDS ORDERED: *HR* Dextrose 50 % in Water (Vial) 50 ML VIAL IVP PRN (23:58)
[2021-04-16 02:13] LABS: Basophils # 0.1 K/mcL (0.0-0.2); Basophils % 0.7 %; Eosinophils # 0.1 K/mcL (0.0-0.6); Eosinophils % 1.9 %; Hematocrit 36.5 % (37.5-50.1); Hemoglobin 11.2 g/dL (12.9-16.9); Immature Granulocytes % 0.3 % (0-4); Lymphocytes # 1.7 K/mcL (0.6-4.6); Lymphocytes % 22.6 %; Mean Corpuscular HGB Conc 30.7 g/dL (31.6-35.5); Mean Corpuscular Hemoglobin 28.4 pg (28.0-33.3); Mean Corpuscular Volume 92.6 fL (83.0-100.0); Mean Platelet Volume 11.7 fL (9.4-12.4); Monocytes # 0.7 K/mcL (0.0-1.3); Monocytes % 9.3 %; Neutrophils # 4.9 K/mcL (1.6-8.9); Platelet Count 116 K/mcL (140-400); Red Blood Count 3.94 M/mcL (4.19-5.50); Red Cell Distribution Width 14.1 % (11.5-14.5); Segmented Neutrophils % 65.2 %; White Blood Count 7.5 K/mcL (4.3-11.1)
[2021-04-16 02:23] LABS: INR 1.9
[2021-04-16] MEDS: *HR* HYDROcodone/Acet 5/325 mg TABLET PO PRN ×2 (02:30→16:40)
[2021-04-16] MEDS: Clindamycin 600 MG/50 ML 600 MG/50 ML IV.SOLN IVPB SCH ×3 (02:31→16:40)
[2021-04-16 02:38] LABS: BUN/Creatinine Ratio 21 (6-26); Blood Urea Nitrogen 27 mg/dL (8-23); C-Reactive Protein 20 mg/L (Less than 10); Calcium 8.9 mg/dL (8.6-10.3); Carbon Dioxide 25 mEq/L (23-29); Chloride 99 mEq/L (98-107); Glucose 177 mg/dL (70-105); Osmolality,Calculated 285 (280-300); Sodium 133 mEq/L (136-145); eGFR For African Americans > 60 (> 60); eGFR For Non-African Americans 54 (> 60)
[2021-04-16 02:40] LABS: Estimated Average Glucose 200 mg/dl; Hemoglobin A1C 8.6 %
[2021-04-16 02:56] LABS: Bilirubin,Urine Negative (Negative); Blood,Urine Negative (Negative); Clarity,Urine Clear (Clear); Color,Urine Light-Yellow (Yellow); Glucose,Urine (UA) Normal (Normal); Ketones,Urine Negative (Negative); Leukocyte Esterase,Urine Negative (Negative); Nitrite,Urine Negative (Negative); Protein,Urine Negative (Neg-Trace); Urobilinogen,Urine Normal (Normal)
[2021-04-16] MEDS: Insulin LISPRO 300 UNITS/3 ML VIAL SUBQ SCH ×4 (08:23→20:32)
[2021-04-16] MEDS: Acetaminophen 325 MG TABLET PO PRN (08:34)
[2021-04-16] MEDS ORDERED: *HR* HYDROcodone/Acet 5/325 mg TABLET PO PRN (08:39)
[2021-04-16] MEDS: Cholecalciferol (D-3) 1,000 UNIT (25MCG) TABLET PO SCH (09:40)
[2021-04-16] MEDS: Furosemide 40 MG TABLET PO SCH (09:40)
[2021-04-16] MEDS: Aspirin Enteric Coated 81 MG Tablet PO SCH (09:40)
[2021-04-16] MEDS: Metoprolol XL (24 HR) Succ 25 MG TAB.ER.24H PO SCH ×2 (09:40→16:41)
[2021-04-16] MEDS: ursodioL 300 MG CAPSULE PO SCH ×2 (09:41→20:32)
[2021-04-16] MEDS: Apixaban 5 MG TABLET PO SCH ×2 (09:41→20:32)
[2021-04-16] MEDS: Sennosides/Docusate Sodium TABLET PO SCH (20:32)
[2021-04-16] MEDS: Gabapentin 300 MG CAPSULE PO SCH (20:32)
[2021-04-17] MEDS: Clindamycin 600 MG/50 ML 600 MG/50 ML IV.SOLN IVPB SCH ×3 (02:32→17:11)
[2021-04-17] MEDS: *HR* HYDROcodone/Acet 5/325 mg TABLET PO PRN ×3 (03:18→20:55)
[2021-04-17 06:44] LABS: Basophils % 0.6 %; Eosinophils # 0.1 K/mcL (0.0-0.6); Eosinophils % 1.9 %; Hematocrit 35.5 % (37.5-50.1); Hemoglobin 11.4 g/dL (12.9-16.9); Immature Granulocytes % 0.3 % (0-4); Lymphocytes # 1.2 K/mcL (0.6-4.6); Lymphocytes % 17.5 %; Mean Corpuscular HGB Conc 32.1 g/dL (31.6-35.5); Mean Corpuscular Hemoglobin 29.8 pg (28.0-33.3); Mean Corpuscular Volume 92.7 fL (83.0-100.0); Mean Platelet Volume 11.5 fL (9.4-12.4); Monocytes # 0.8 K/mcL (0.0-1.3); Monocytes % 11.8 %; Neutrophils # 4.7 K/mcL (1.6-8.9); Platelet Count 109 K/mcL (140-400); Red Blood Count 3.83 M/mcL (4.19-5.50); Red Cell Distribution Width 14.1 % (11.5-14.5); Segmented Neutrophils % 67.9 %; White Blood Count 6.9 K/mcL (4.3-11.1)
[2021-04-17 06:59] LABS: BUN/Creatinine Ratio 22 (6-26); Blood Urea Nitrogen 28 mg/dL (8-23); Calcium 9.6 mg/dL (8.6-10.3); Carbon Dioxide 28 mEq/L (23-29); Chloride 102 mEq/L (98-107); Glucose 189 mg/dL (70-105); Osmolality,Calculated 293 (280-300); Sodium 136 mEq/L (136-145); eGFR For African Americans > 60 (> 60); eGFR For Non-African Americans 54 (> 60)
[2021-04-17] MEDS: Aspirin Enteric Coated 81 MG Tablet PO SCH (08:34)
[2021-04-17] MEDS: Metoprolol XL (24 HR) Succ 25 MG TAB.ER.24H PO SCH ×2 (08:34→17:10)
[2021-04-17] MEDS: Apixaban 5 MG TABLET PO SCH ×2 (08:35→20:34)
[2021-04-17] MEDS: Cholecalciferol (D-3) 1,000 UNIT (25MCG) TABLET PO SCH (08:35)
[2021-04-17] MEDS: Furosemide 40 MG TABLET PO SCH (08:36)
[2021-04-17] MEDS: Sennosides/Docusate Sodium TABLET PO SCH ×2 (08:36→20:34)
[2021-04-17] MEDS: Gabapentin 300 MG CAPSULE PO SCH ×3 (08:36→20:34)
[2021-04-17] MEDS: Insulin LISPRO 300 UNITS/3 ML VIAL SUBQ SCH ×4 (08:39→20:36)
[2021-04-17] MEDS: ursodioL 300 MG CAPSULE PO SCH (08:42)
[2021-04-18] MEDS: Clindamycin 600 MG/50 ML 600 MG/50 ML IV.SOLN IVPB SCH ×3 (01:31→17:24)
[2021-04-18] MEDS: ursodioL 300 MG CAPSULE PO SCH ×3 (01:31→20:40)
[2021-04-18 02:37] LABS: Basophils # 0.1 K/mcL (0.0-0.2); Basophils % 0.7 %; Eosinophils # 0.1 K/mcL (0.0-0.6); Eosinophils % 1.5 %; Hematocrit 37.5 % (37.5-50.1); Hemoglobin 11.4 g/dL (12.9-16.9); Immature Granulocytes % 0.4 % (0-4); Lymphocytes # 1.4 K/mcL (0.6-4.6); Lymphocytes % 18.8 %; Mean Corpuscular HGB Conc 30.4 g/dL (31.6-35.5); Mean Corpuscular Hemoglobin 28.5 pg (28.0-33.3); Mean Corpuscular Volume 93.8 fL (83.0-100.0); Mean Platelet Volume 12.1 fL (9.4-12.4); Monocytes # 0.7 K/mcL (0.0-1.3); Monocytes % 9.6 %; Platelet Count 115 K/mcL (140-400); Red Cell Distribution Width 14.2 % (11.5-14.5); White Blood Count 7.2 K/mcL (4.3-11.1)
[2021-04-18 02:58] LABS: Calcium 9.5 mg/dL (8.6-10.3); Potassium 4.3 mEq/L (3.5-5.1)
[2021-04-18] MEDS: *HR* HYDROcodone/Acet 5/325 mg TABLET PO PRN ×4 (03:34→20:37)
[2021-04-18] MEDS: Aspirin Enteric Coated 81 MG Tablet PO SCH (08:03)
[2021-04-18] MEDS: Cholecalciferol (D-3) 1,000 UNIT (25MCG) TABLET PO SCH (08:03)
[2021-04-18] MEDS: Apixaban 5 MG TABLET PO SCH ×2 (08:03→20:37)
[2021-04-18] MEDS: Gabapentin 300 MG CAPSULE PO SCH ×3 (08:03→20:36)
[2021-04-18] MEDS: Furosemide 40 MG TABLET PO SCH (08:05)
[2021-04-18] MEDS: Sennosides/Docusate Sodium TABLET PO SCH ×2 (08:05→20:36)
[2021-04-18] MEDS: Insulin LISPRO 300 UNITS/3 ML VIAL SUBQ SCH ×4 (08:13→20:56)
[2021-04-18] MEDS: Metoprolol XL (24 HR) Succ 25 MG TAB.ER.24H PO SCH ×2 (08:17→17:24)
[2021-04-19] MEDS: Clindamycin 600 MG/50 ML 600 MG/50 ML IV.SOLN IVPB SCH ×2 (03:11→10:07)
[2021-04-19] MEDS: Acetaminophen 325 MG TABLET PO PRN (03:15)
[2021-04-19 05:09] LABS: Basophils % 0.4 %; Eosinophils # 0.1 K/mcL (0.0-0.6); Eosinophils % 1.6 %; Hemoglobin 11.2 g/dL (12.9-16.9); Immature Granulocytes % 0.1 % (0-4); Lymphocytes % 14.2 %; Mean Corpuscular HGB Conc 31.1 g/dL (31.6-35.5); Mean Corpuscular Hemoglobin 28.9 pg (28.0-33.3); Mean Platelet Volume 11.9 fL (9.4-12.4); Monocytes # 0.7 K/mcL (0.0-1.3); Monocytes % 10.3 %; Neutrophils # 5.1 K/mcL (1.6-8.9); Platelet Count 120 K/mcL (140-400); Red Blood Count 3.87 M/mcL (4.19-5.50); Red Cell Distribution Width 14.4 % (11.5-14.5); Segmented Neutrophils % 73.4 %
[2021-04-19 05:27] LABS: Calcium 9.7 mg/dL (8.6-10.3); Potassium 4.3 mEq/L (3.5-5.1)
[2021-04-19] MEDS: *HR* HYDROcodone/Acet 5/325 mg TABLET PO PRN (05:48)
[2021-04-19 07:35] VITALS: BP 136/91
[2021-04-19] MEDS: Gabapentin 300 MG CAPSULE PO SCH (08:32)
[2021-04-19] MEDS: Metoprolol XL (24 HR) Succ 25 MG TAB.ER.24H PO SCH (08:32)
[2021-04-19] MEDS: Apixaban 5 MG TABLET PO SCH (08:32)
[2021-04-19] MEDS: Cholecalciferol (D-3) 1,000 UNIT (25MCG) TABLET PO SCH (08:33)
[2021-04-19] MEDS: Sennosides/Docusate Sodium TABLET PO SCH (08:33)
[2021-04-19] MEDS: Aspirin Enteric Coated 81 MG Tablet PO SCH (08:33)
[2021-04-19] MEDS: ursodioL 300 MG CAPSULE PO SCH (08:35)
[2021-04-19] MEDS: Insulin LISPRO 300 UNITS/3 ML VIAL SUBQ SCH (08:37)
== END 2021-04-19 10:15 | disposition home health service (06) ==
LOC: EMEROOARM 21:03 → 3BNU 21:03 → SUATTDRO 04-16 00:13 → 3BNU 04-16 01:03
PROVIDERS: ADMIT Internal Medicine; ATTEND Family Medicine

== ENCOUNTER 2022-05-04 10:44 | Inpatient (IN) ==
[2022-05-04 11:21] LABS: Bacteria,Urine Few per hpf (None-Few); Bilirubin,Urine Negative (Negative); Blood,Urine Large (Negative); Clarity,Urine Turbid (Clear); Color,Urine Yellow (Yellow); Glucose,Urine (UA) Normal (Normal); Ketones,Urine Negative (Negative); Leukocyte Esterase,Urine Large (Negative); Nitrite,Urine Negative (Negative); Protein,Urine 100 mg/dL (Neg-Trace); RBC,Urine TNTC per hpf (0-3); Specific Gravity,Urine 1.014 (1.010-1.025); Urobilinogen,Urine Normal (Normal); WBC,Urine TNTC per hpf (0-3)
[2022-05-04] MEDS ORDERED: Iopamidol - 370 500 ML MLS IVP ONE (11:22)
[2022-05-04] MEDS ORDERED: 0.9 % Sodium Chloride 1,000 ML IV ONE (11:27)
[2022-05-04 11:47] LABS: Red Cell Distribution Width 16.1 % (11.5-14.5); Segmented Neutrophils % 91.6 %
[2022-05-04 11:49] LABS: Basophils % 0.2 %; Eosinophils % 0.1 %; Hematocrit 35.7 % (37.5-50.1); Hemoglobin 11.4 g/dL (12.9-16.9); Immature Granulocytes % 0.5 % (0-4); Immature Platelets 5.3 % (1.1-6.1); Lymphocytes # 0.5 K/mcL (0.6-4.6); Mean Corpuscular HGB Conc 31.9 g/dL (31.6-35.5); Mean Corpuscular Hemoglobin 30.1 pg (28.0-33.3); Mean Corpuscular Volume 94.2 fL (83.0-100.0); Mean Platelet Volume 10.6 fL (9.4-12.4); Monocytes # 0.3 K/mcL (0.0-1.3); Monocytes % 2.6 %; Neutrophils # 9.1 K/mcL (1.6-8.9); Red Blood Count 3.79 M/mcL (4.19-5.50); White Blood Count 9.9 K/mcL (4.3-11.1)
[2022-05-04 11:51] LABS: VBG HCO3 25 mEq/L (21-27); VBG PCO2 44 mmHg (41-51); VBG PH 7.36 pH Units (7.32-7.42); VBG PO2 43 mmHg (25-50)
[2022-05-04 12:00] LABS: INR 2.1; Prothrombin Time 23.8 Seconds (9.4-12.1)
[2022-05-04 12:03] LABS: Activated Partial Thrombo Time 47.9 Seconds (26.0-36.0)
[2022-05-04 12:08] LABS: Calcium 9.4 mg/dL (8.6-10.3); Magnesium 1.8 mg/dL (1.6-2.6); Potassium 4.3 mEq/L (3.5-5.1)
[2022-05-04 12:47] LABS: Platelet Count 98 K/mcL (140-400)
[2022-05-04] MEDS ORDERED: cefTRIAXone 2,000 MG in 0.9 % Sodium Chloride 20 ML IVP ONE (14:15)
[2022-05-04] MEDS ORDERED: Morphine Sulfate 2 MG/ML SYRINGE IVP ONE (15:01)
[2022-05-04] MEDS ORDERED: Ondansetron 4 MG/2 ML VIAL IVP STA (15:01)
[2022-05-04 15:08] LABS: Bilirubin,Indirect 1.3 mg/dL (0.0-1.0); Bilirubin,Total 2.3 mg/dL (0.3-1.0); Globulin 3.9 g/dL (2.4-3.5); Total Protein 7.9 g/dL (6.4-8.9)
[2022-05-04] MEDS ORDERED: Naloxone 0.4 MG/ML INJ IVP PRN (15:14)
[2022-05-04] MEDS ORDERED: Ondansetron 4 MG/2 ML VIAL IVP PRN (15:14)
[2022-05-04] MEDS ORDERED: Acetaminophen 325 MG TABLET PO PRN (15:14)
[2022-05-04] MEDS ORDERED: 0.9 % Sodium Chloride 1,000 ML IVC SCH (15:15)
[2022-05-04] MEDS ORDERED: polyethylene glycoL 3350 17 GM POWD.PACK PO PRN (19:09)
[2022-05-04] MEDS ORDERED: Nitroglycerin 0.4 MG TAB.SUBL SL PRN (19:09)
[2022-05-04] MEDS ORDERED: Morphine Sulfate Immed Rel 15 MG TABLET PO PRN (19:09)
[2022-05-04] MEDS ORDERED: *HR* HYDROcodone/Acet 5/325 mg TABLET PO PRN (19:09)
[2022-05-04] MEDS ORDERED: GuaiFENesin Liq 200 MG/10 ML UDC PO PRN (19:09)
[2022-05-04] MEDS: ursodioL 300 MG CAPSULE PO SCH (20:02)
[2022-05-04] MEDS: Apixaban 5 MG TABLET PO SCH (20:02)
[2022-05-04] MEDS: *HR* HYDROcodone/Acet 5/325 mg TABLET PO PRN (20:28)
[2022-05-04] MEDS ORDERED: Gabapentin 400 MG CAPSULE PO SCH (21:00)
[2022-05-04] MEDS ORDERED: Furosemide 40 MG TABLET PO SCH (21:00)
[2022-05-05 01:55] LABS: Hematocrit 33.3 % (37.5-50.1); Hemoglobin 10.5 g/dL (12.9-16.9); Immature Platelets 7.5 % (1.1-6.1); Mean Corpuscular HGB Conc 31.5 g/dL (31.6-35.5); Mean Corpuscular Hemoglobin 30.1 pg (28.0-33.3); Mean Corpuscular Volume 95.4 fL (83.0-100.0); Mean Platelet Volume 11.4 fL (9.4-12.4); Red Blood Count 3.49 M/mcL (4.19-5.50); Red Cell Distribution Width 16.3 % (11.5-14.5); White Blood Count 14.8 K/mcL (4.3-11.1)
[2022-05-05 02:14] LABS: Calcium 8.6 mg/dL (8.6-10.3); Potassium 4.3 mEq/L (3.5-5.1)
[2022-05-05] MEDS: Ipratropium/Albuterol Neb 3 ML IH SCH ×2 (03:34→03:38)
[2022-05-05] MEDS ORDERED: *HR* Metoprolol 5 MG/5 ML VIAL IVP ONE (03:54)
[2022-05-05] MEDS ORDERED: 0.9 % Sodium Chloride 1,000 ML IVC ONE ×2 (03:54→06:38)
[2022-05-05] MEDS ORDERED: Acetaminophen IV 1,000 MG/100 ML BAG IVPB ONE (03:54)
[2022-05-05 05:37] LABS: A.calcoaceticus-baumannii cplx Not Detected (Not Detect); Bacteroides fragilis by PCR Not Detected (Not Detect); CTX-M ESBL Gene Not Detected (Not Detect); Candida albicans by PCR Not Detected (Not Detect); Candida auris by PCR Not Detected (Not Detect); Candida glabrata by PCR Not Detected (Not Detect); Candida krusei by PCR Not Detected (Not Detect); Candida parapsilosis by PCR Not Detected (Not Detect); Enterobacter cloacae Cmplx PCR Not Detected (Not Detect); Enterobacterales by PCR Not Detected (Not Detect); Enterococcus faecalis by PCR Not Detected (Not Detect); Enterococcus faecium by PCR Not Detected (Not Detect); Escherichia coli by PCR DETECTED (Not Detect); IMP Carbapenem-Resist Gene Not Detected (Not Detect); Klebs. pneumoniae group by PCR Not Detected (Not Detect); Klebsiella aerogenes by PCR Not Detected (Not Detect); Klebsiella oxytoca by PCR Not Detected (Not Detect); NDM Carbapenem-Resist Gene Not Detected (Not Detect); OXA-48-like Carbap-Resist Gene Not Detected (Not Detect); Proteus by PCR Not Detected (Not Detect); Pseudomonas aeruginosa by PCR Not Detected (Not Detect); Salmonella species by PCR Not Detected (Not Detect); Serratia marcescens by PCR Not Detected (Not Detect); Staph epidermidis by PCR Not Detected (Not Detect); Staph lugdunensis by PCR Not Detected (Not Detect); Staphylococcus aureus by PCR Not Detected (Not Detect); Staphylococcus by PCR Not Detected (Not Detect); Stenotrophomonas maltophilia Not Detected (Not Detect); Streptococcus agalactiae(B)PCR Not Detected (Not Detect); Streptococcus by PCR Not Detected (Not Detect); Streptococcus pneumoniae PCR Not Detected (Not Detect); Streptococcus pyogenes (A) PCR Not Detected (Not Detect); VIM Carbapenem-Resist Gene Not Detected (Not Detect); blaKPC Carbapenem-Resist Gene Not Detected (Not Detect); mcr-1 Colistin-Resist Gene Not Detected (Not Detect)
[2022-05-05 05:38] LABS: Candida tropicalis by PCR Not Detected (Not Detect); Crypto. neoformans/gattii PCR Not Detected (Not Detect)
[2022-05-05] MEDS: Levalbuterol Neb 1.25 MG/3 ML IH SCH ×4 (07:10→22:05)
[2022-05-05] MEDS: Aspirin Enteric Coated 81 MG Tablet PO SCH (08:28)
[2022-05-05] MEDS: cefTRIAXone 2,000 MG in 0.9 % Sodium Chloride 20 ML IVP SCH (08:29)
[2022-05-05] MEDS: Cholecalciferol (D-3) 1,000 UNIT (25MCG) TABLET PO SCH (08:29)
[2022-05-05] MEDS: ursodioL 300 MG CAPSULE PO SCH ×2 (08:29→20:17)
[2022-05-05] MEDS: Eucerin Cream 57 GM TUBE TP SCH (08:37)
[2022-05-05] MEDS: Apixaban 5 MG TABLET PO SCH ×2 (08:38→20:17)
[2022-05-05] MEDS ORDERED: NON-FORMULARY MEDICATION 1 EACH EACH (Calcium Citrate 200 MG Tablet) PO SCH (09:00)
[2022-05-05] MEDS ORDERED: Metoprolol XL (24 HR) Succ 25 MG TAB.ER.24H PO SCH ×2 (09:00→18:00)
[2022-05-05] MEDS ORDERED: Furosemide 40 MG TABLET PO SCH (09:00)
[2022-05-05] MEDS ORDERED: Gabapentin 400 MG CAPSULE PO SCH (09:00)
[2022-05-05] MEDS ORDERED: *HR* Metoprolol 5 MG/5 ML VIAL IVP STA (11:16)
[2022-05-05] MEDS ORDERED: Acetaminophen IV 500 MG/50 ML BAG IVPB ONE (11:35)
[2022-05-05] MEDS: 0.9 % Sodium Chloride 1,000 ML IVC SCH (12:02)
[2022-05-05] MEDS ORDERED: Dextrose Gel 15 GM/37.5 ML TUBE PO PRN ×2 (17:24)
[2022-05-05] MEDS ORDERED: *HR* Dextrose 50 % in Water (Syg) 50 ML SYRINGE IVP PRN (17:24)
[2022-05-05] MEDS ORDERED: D5% in Water 1,000 ML IVC PRN (17:24)
[2022-05-05] MEDS: Insulin LISPRO 300 UNITS/3 ML VIAL SUBQ SCH (20:12)
[2022-05-05] MEDS: Metoprolol XL (24 HR) Succ 25 MG TAB.ER.24H PO SCH (20:18)
[2022-05-06] MEDS: *HR* HYDROcodone/Acet 5/325 mg TABLET PO PRN ×3 (01:41→20:36)
[2022-05-06] MEDS: Levalbuterol Neb 1.25 MG/3 ML IH SCH ×2 (03:49→10:44)
[2022-05-06 05:46] LABS: Mean Platelet Volume 11.8 fL (9.4-12.4); Red Cell Distribution Width 16.2 % (11.5-14.5); White Blood Count 9.4 K/mcL (4.3-11.1)
[2022-05-06 05:48] LABS: Basophils % 0.4 %; Eosinophils % 0.3 %; Immature Platelets 6.9 % (1.1-6.1); Lymphocytes # 0.6 K/mcL (0.6-4.6); Lymphocytes % 6.5 %; Mean Corpuscular HGB Conc 32.1 g/dL (31.6-35.5); Mean Corpuscular Hemoglobin 30.3 pg (28.0-33.3); Mean Corpuscular Volume 94.3 fL (83.0-100.0); Neutrophils # 7.6 K/mcL (1.6-8.9); Red Blood Count 2.97 M/mcL (4.19-5.50); Segmented Neutrophils % 80.8 %
[2022-05-06 05:58] LABS: Albumin 3.1 g/dL (3.5-5.7); Bilirubin,Total 0.8 mg/dL (0.3-1.0); Calcium 7.5 mg/dL (8.6-10.3); Globulin 3.2 g/dL (2.4-3.5); Potassium 4.1 mEq/L (3.5-5.1); Total Protein 6.3 g/dL (6.4-8.9)
[2022-05-06 06:04] LABS: Platelet Count 73 K/mcL (140-400)
[2022-05-06] MEDS: Aspirin Enteric Coated 81 MG Tablet PO SCH (08:24)
[2022-05-06] MEDS: cefTRIAXone 2,000 MG in 0.9 % Sodium Chloride 20 ML IVP SCH (08:24)
[2022-05-06] MEDS: Cholecalciferol (D-3) 1,000 UNIT (25MCG) TABLET PO SCH (08:24)
[2022-05-06] MEDS: Metoprolol XL (24 HR) Succ 25 MG TAB.ER.24H PO SCH ×2 (08:25→20:36)
[2022-05-06] MEDS: Apixaban 5 MG TABLET PO SCH ×2 (08:25→20:35)
[2022-05-06] MEDS: 0.9 % Sodium Chloride 1,000 ML IVC SCH (08:29)
[2022-05-06] MEDS: Insulin LISPRO 300 UNITS/3 ML VIAL SUBQ SCH ×4 (08:31→20:44)
[2022-05-06] MEDS: ursodioL 300 MG CAPSULE PO SCH ×2 (08:39→20:36)
[2022-05-06] MEDS: Eucerin Cream 57 GM TUBE TP SCH (08:41)
[2022-05-06] MEDS ORDERED: NON-FORMULARY MEDICATION 1 EACH EACH (Alendronate Sodium [Fosamax] 70 MG Tablet) PO SCH (19:09)
[2022-05-07] MEDS: *HR* OxyCODONE Immed Rel 5 MG TABLET PO PRN ×2 (04:15→15:50)
[2022-05-07] MEDS: Levalbuterol Neb 1.25 MG/3 ML IH PRN ×2 (04:20→20:21)
[2022-05-07 08:00] LABS: Eosinophils % 0.8 %; Immature Granulocytes % 0.6 % (0-4); Mean Corpuscular HGB Conc 32.5 g/dL (31.6-35.5); Mean Corpuscular Hemoglobin 29.7 pg (28.0-33.3)
[2022-05-07 08:02] LABS: Basophils % 0.5 %; Eosinophils # 0.1 K/mcL (0.0-0.6); Hematocrit 28.6 % (37.5-50.1); Hemoglobin 9.3 g/dL (12.9-16.9); Immature Platelets 7.4 % (1.1-6.1); Lymphocytes # 0.7 K/mcL (0.6-4.6); Lymphocytes % 7.4 %; Mean Corpuscular Volume 91.4 fL (83.0-100.0); Mean Platelet Volume 11.7 fL (9.4-12.4); Monocytes # 1.2 K/mcL (0.0-1.3); Monocytes % 13.4 %; Neutrophils # 6.9 K/mcL (1.6-8.9); Red Blood Count 3.13 M/mcL (4.19-5.50); Segmented Neutrophils % 77.3 %; White Blood Count 8.9 K/mcL (4.3-11.1)
[2022-05-07 08:06] LABS: Platelet Count 75 K/mcL (140-400)
[2022-05-07 08:07] LABS: Platelet Estimate Normal (Normal)
[2022-05-07 08:19] LABS: Calcium 7.7 mg/dL (8.6-10.3); Potassium 4.2 mEq/L (3.5-5.1)
[2022-05-07] MEDS: Apixaban 5 MG TABLET PO SCH ×2 (09:10→20:15)
[2022-05-07] MEDS: Aspirin Enteric Coated 81 MG Tablet PO SCH (09:10)
[2022-05-07] MEDS: Metoprolol XL (24 HR) Succ 25 MG TAB.ER.24H PO SCH ×2 (09:10→20:20)
[2022-05-07] MEDS: Cholecalciferol (D-3) 1,000 UNIT (25MCG) TABLET PO SCH (09:10)
[2022-05-07] MEDS: Eucerin Cream 57 GM TUBE TP SCH (09:11)
[2022-05-07] MEDS: cefTRIAXone 2,000 MG in 0.9 % Sodium Chloride 20 ML IVP SCH (09:11)
[2022-05-07] MEDS: ursodioL 300 MG CAPSULE PO SCH ×2 (09:11→20:14)
[2022-05-07] MEDS: Insulin LISPRO 300 UNITS/3 ML VIAL SUBQ SCH ×4 (09:12→20:26)
[2022-05-07] MEDS ORDERED: Furosemide 40 MG TABLET PO SCH (21:00)
[2022-05-08] MEDS: Apixaban 5 MG TABLET PO SCH (07:45)
[2022-05-08] MEDS: cefTRIAXone 2,000 MG in 0.9 % Sodium Chloride 20 ML IVP SCH (07:45)
[2022-05-08] MEDS: Levalbuterol Neb 1.25 MG/3 ML IH PRN (07:45)
[2022-05-08] MEDS: ursodioL 300 MG CAPSULE PO SCH (07:46)
[2022-05-08] MEDS: Aspirin Enteric Coated 81 MG Tablet PO SCH (07:46)
[2022-05-08] MEDS: Cholecalciferol (D-3) 1,000 UNIT (25MCG) TABLET PO SCH (07:47)
[2022-05-08] MEDS: Metoprolol XL (24 HR) Succ 25 MG TAB.ER.24H PO SCH (07:49)
[2022-05-08] MEDS: Eucerin Cream 57 GM TUBE TP SCH (07:50)
[2022-05-08] MEDS: Insulin LISPRO 300 UNITS/3 ML VIAL SUBQ SCH ×2 (07:51→12:58)
[2022-05-08] MEDS ORDERED: Furosemide 40 MG TABLET PO SCH (09:00)
[2022-05-08 12:04] VITALS: BP 119/78; PULSE 88; TEMP 98.1; O2SAT 100
== END 2022-05-08 13:36 | disposition home or self-care (01) | DRG 871 ==
LOC: EMEROOARM 10:44 → 3ANU 10:44 → SUATTDRO 15:24 → 3ANU 16:42 → SUATTDRO 05-05 11:45 → 2NENU 05-05 13:44
PROVIDERS: ADMIT Internal Medicine; ATTEND Internal Medicine